=== PATIENT | female | born 1985 | race Caucasian/White ===

== ENCOUNTER 2017-09-30 07:08 | Emergency (ER) | payer MEDICAID, SELFPAY ==
[2017-09-30 07:08] VITALS: BP 130/72; PULSE 79; RESP 16; TEMP 36.4; O2SAT 99; BMI 25.6
--- NOTE | 2017-09-30 07:24 | RAD_ITS ---
STUDY: X-RAY - ABDOMEN/PELVIS REASON FOR EXAM: Female, 31 years old. Abdominal pain and cramping. TECHNIQUE: AP supine and upright views of the abdomen and pelvis. COMPARISON: None. FINDINGS: Normal visualized lung bases. There is a moderate amount of colonic fecal material. There is no demonstrated free abdominal air. The visualized liver, spleen and kidneys are grossly normal in size and morphology. Normal soft tissue structures. Normal visualized osseous structures. RAD/Abd Inc Decub and/or Erect IMPRESSION: Moderate amount of fecal material is seen in the colon. Electronically Signed: Ji Bloom MD at 8:09 EDT Tel [phone], Service support ,
--- NOTE | 2017-09-30 07:26 | ED.VISSUMM ---
- ER Visit Summary Date of Service: 09/30/17 Chief Complaint: Constipation History of Present Illness: The patient is a 31 F reports difficulty passing stool for the past 2 weeks. Patient states that she is urinating okay. She tried laxatives last week and yesterday without significant improvement. She is still passing occasional gas. She has had no nausea or vomiting. She denies fever but states she has had some chills. Prior surgical history is significant for hysterectomy and prior C-sections. Physical Examination: Vital signs are unremarkable Head neck examination is normal. Heart is regular rate and rhythm. Lung sounds are clear. Abdomen is soft with mild diffuse tenderness palpation. There is no guarding or rebound. Hypoactive bowel sounds are noted throughout. Extremity examination is unremarkable with distal palpable pulses. Test Results: Abdominal x-rays are obtained and reveal moderate fecal material without sign of obstruction. Emergency Department Course and Treatment: Patient be given GoLYTELY for home. She is to follow with her primary care physician. Treatment Plan: [] Disposition: Discharge Impression: Constipation This note was generated with [employer] dictation software. It may contain incorrect words, spelling, and punctuation that were not noted in review of the chart prior to signing ED Disposition - Plan for ED Patient: Chief Complaint: Constipation Referrals: Shady Sahni MD [Primary Care Provider] -
--- NOTE | 2017-09-30 08:20 | ED.DEP ---
ED Disposition - Plan for ED Patient: Disposition: Home or Assisted Living Chief Complaint: Constipation Instructions: ED Constipation Referrals: Shady Sahni MD [Primary Care Provider] - As Needed
[2017-09-30] MEDS: Electrolyte Solution/Peg's 4000 ML PO (08:46)
== END 2017-09-30 08:47 | disposition home or self-care (01) ==
PROVIDERS: Emergency Provider Emergency Medicine; Family Provider Family Medicine; PCP Family Medicine
DX: K59.00 Constipation, unspecified (principal); R68.83 Chills (without fever); F31.9 Bipolar disorder, unspecified; Z90.710 Acquired absence of both cervix and uterus; Z87.891 Personal history of nicotine dependence
CPT/HCPCS: 74019; 99282

== ENCOUNTER 2017-10-27 16:19 | Emergency (ER) | payer MEDICAID, SELFPAY ==
[2017-10-27 16:21] VITALS: BP 133/78; PULSE 81; RESP 17; TEMP 36.5; O2SAT 99; BMI 26.9
--- NOTE | 2017-10-27 16:38 | RAD_ITS ---
STUDY: X-RAY - RIGHT WRIST REASON FOR EXAM: Female, 31 years old. Punched a wall, wrist pain. TECHNIQUE: 3 view(s) of the wrist were obtained. COMPARISON: None. FINDINGS: Normal visualized distal radius and ulna. Normal radiocarpal articulation. Normal distal radioulnar articulation. Normal carpal bones. Normal carpal articulations. Normal carpometacarpal articulation of the thumb. Normal second through fifth carpometacarpal articulations. Normal visualized metacarpal bones. There is mild soft tissue swelling at the wrist. There is no demonstrated acute fracture. RAD/Wrist min 3 Views IMPRESSION: Mild soft tissue swelling. No acute fracture of the right wrist. Electronically Signed: Roe Brown MD at 17:01 EDT , Service support ,
--- NOTE | 2017-10-27 17:12 | ED.VISSUMM ---
- ER Visit Summary Date of Service: 10/27/17 Chief Complaint: Wrist injury History of Present Illness: The patient is a 31 F who states that on Tuesday she hit a wall using the back of her hand.. Today's post trauma day 3. She contains of continued pain in the lateral aspect of the right wrist. It is worse with movement. Physical Examination: Afebrile vital signs are stable Patient is tender palpation over the lateral aspect of the dorsum of the right wrist. Is no obvious deformity. Full range of motion. Neurovascular intact distally. Test Results: X-rays were negative for fracture Emergency Department Course and Treatment: She will use a Velcro wrist splint for comfort. Ibuprofen for pain. Follow-up 10-14 days if not improved. Impression: 1. Right wrist sprain This note was generated with [employer] dictation software. It may contain incorrect words, spelling, and punctuation that were not noted in review of the chart prior to signing ED Disposition - Plan for ED Patient: Disposition: Home or Assisted Living Chief Complaint: Upper Extremity Injury Instructions: ED Sprain Wrist Referrals: Shady Sahni MD [Primary Care Provider] - 10-14 Days if not better
== END 2017-10-27 17:41 | disposition home or self-care (01) ==
LOC: ED 17:17
PROVIDERS: Emergency Provider Emergency Medicine; Family Provider Family Medicine; PCP Family Medicine
DX: S63.501A Unspecified sprain of right wrist, initial encounter (principal); W22.01XA Walked into wall, initial encounter; Y93.9 Activity, unspecified; Y92.9 Unspecified place or not applicable; Z87.891 Personal history of nicotine dependence; Z90.710 Acquired absence of both cervix and uterus
CPT/HCPCS: 73110; 99283

== ENCOUNTER 2018-02-01 09:54 | Emergency (ER) | payer MEDICAID, SELFPAY ==
[2018-02-01 09:54] VITALS: BP 134/87; PULSE 67; RESP 15; TEMP 36.7; BMI 27.8
--- NOTE | 2018-02-01 10:14 | ED.VISSUMM ---
- ER Visit Summary Date of Service: 02/01/18 Chief Complaint: Headache History of Present Illness: The patient is a [address] Sahni. She reports that she has a headache that began this morning is gradually gotten worse. Last headache like this was approximately 2 months ago. Is a sharp pain that is frontal and over both temples. Is 10 out of 10 severity. It is worsened by light. She denies any relief with Midol or ibuprofen. She has been nauseated, but has not vomited. No fever. No recent injury. No numbness or weakness. Physical Examination: Vitals: Stable. Afebrile. General: Well-nourished and well-developed. Head: Normocephalic atraumatic. Neck: Supple, no lymphadenopathy. No JVD. Nontender. Cardiovascular: Regular rate and rhythm. No murmurs. Respiratory: No respiratory distress. Clear to auscultation bilaterally. Abdominal: Soft, nontender, nondistended, normal bowel sounds. No guarding, rebound, or peritoneal signs. Back: Nontender. Extremities: Nontender, no edema. Skin: Normal color, no rash. Neurologic: Alert and oriented ?3. Cranial nerves II through XII are intact. Normal strength and sensation. Psych: Normal affect. Emergency Department Course and Treatment: Patient had an IV placed. She was given Toradol, Benadryl, and Compazine IV. She has had significant improvement. Treatment Plan: Patient will be discharged instructions follow-up Dr. Sahni in 1-2 days if not improving. Return to the emergency department for any worsening symptoms. Disposition: To home in improved and stable condition. Impression: 1. Migraine headache. This note was generated with [employer] dictation software. It may contain incorrect words, spelling, and punctuation that were not noted in review of the chart prior to signing ED Disposition - Plan for ED Patient: Chief Complaint: Headache Instructions: ED Headache Migraine Referrals: Shady Sahni MD [Primary Care Provider] - 1-2 Days if not improving
[2018-02-01] MEDS: Ketorolac 30 MG/ML Syringe IV (10:24)
[2018-02-01] MEDS: 0.9% Normal Saline 1,000 ML 999 ML IV (10:24)
[2018-02-01] MEDS: DiphenhydrAMINE 50 MG/ML Syringe IV (10:24)
[2018-02-01] MEDS: proCHLORPERazine 10 MG/2 ML Vial IV (10:24)
[2018-02-01 12:02] VITALS: BP 125/70; PULSE 75; RESP 14; O2SAT 99
[2018-02-01 12:13] VITALS: BP 122/74; PULSE 70; RESP 14; TEMP 36.6
== END 2018-02-01 12:15 | disposition home or self-care (01) ==
PROVIDERS: Emergency Provider Emergency Medicine; Family Provider Family Medicine; PCP Family Medicine
DX: G43.909 Migraine, unspecified, not intractable, without status migrainosus (principal)
CPT/HCPCS: 96361; 96374; 96375; 99283; J7030; A4216

== ENCOUNTER 2018-03-25 06:32 | Emergency (ER) | payer MEDICAID, SELFPAY ==
[2018-03-25 06:33] VITALS: BP 133/88; PULSE 70; RESP 24; TEMP 36.5; O2SAT 98; BMI 29.0
[2018-03-25 06:53] LABS: Absolute Lymphocyte Count 2.41 X10^3/ul (0.83-4.51); Absolute Neutrophil Count 2.8 X10^3/uL (2.0-7.7); Basophil# 0.03 X10^3/uL; Basophil% 0.5 % (0-1); Eosinophil# 0.25 X10^3/uL; Eosinophils% 4.2 % (0-5); Hematocrit 41.8 % (37-47); Hemoglobin 13.8 g/dl (12.0-15.0); Lymphocyte # 2.41 X10^3/ul (4.0); Lymphocyte % 40.2 % (19-41); Mean Corpuscular Hgb 32.1 pg (27.0-32.0); Mean Corpuscular Volume 97.2 fL (81-99); Monocyte# 0.56 X10^3/uL; Monocyte% 9.3 % (0-10); Neutrophil # 2.75 X10^3/uL (2.7-7.7); Neutrophil % 45.8 % (47-70); Platelet Count 258 K/mm3 (150-450); RBC Distribution Width SD 46.2 fl (35.1-43.9)
[2018-03-25 06:54] LABS: POSITIVE COUNT NO; POSITIVE DIFFERENTIAL NO; POSITIVE MORPHOLOGY NO
[2018-03-25 07:02] LABS: Anion Gap 7 (5-15); BUN 14 mg/dL (7-18); BUN/Creat Ratio 18.2 RATIO (10-20); Calcium,Total 8.9 mg/dL (8.5-10.1); Chloride 110 mmol/L (98-107); Creatinine, Serum 0.77 mg/dL (0.55-1.02); EST Glomerular Filtration Rate 92 mL/min (>60); Est Glom Filt Rate - Afr Amer 112 mL/min (>60); Estimated Creatinine Clearance 86.77 ml/min; Glucose 95 mg/dL (74-106); Potassium 4.3 mmol/L (3.5-5.1); Sodium Level 143 mmol/L (136-145)
[2018-03-25 07:13] LABS: Pregnancy, Serum, hCG Quali. NEGATIVE Negative (0-9 Nonpreg)
[2018-03-25] MEDS: morphine 8 MG/ML Syringe IV (07:35)
[2018-03-25] MEDS: Ondansetron 4 MG/2 ML Vial IV (07:35)
[2018-03-25] MEDS: 0.9% Normal Saline 1,000 ML 1000 ML IV (07:35)
[2018-03-25 07:40] LABS: Bacteria 0 SEEN /hpf (None Seen); Color, Urine Yellow (Yellow); Glucose, Dipstick Normal (Normal); Ketone-Dipstick Negative (Negative); Leukocyte Esterase-Dipstick Negative /ul (Negative); Mucous, Urine 0 SEEN /hpf (<or=2+); Nitrite-Dipstick Negative (Negative); Occult Blood-Urine Negative /ul (Negative); Protein-Dipstick Negative (Negative); Red Blood Cells-Urine 0 SEEN /hpf (0-5); Urine Bilirubin Dipstick Negative (Negative); Urine Clarity Clear (Clear); Urine Urobilinogen Normal (Normal); Urine pH 6.5 (5.0 - 8.0); White Blood Cells 0 SEEN /hpf (0-5)
[2018-03-25 07:41] LABS: Squamous Epithelial Cells - UA 0-5 SEEN /hpf (5-10)
--- NOTE | 2018-03-25 07:46 | ED.VISSUMM ---
- ER Visit Summary Date of Service: 03/25/18 Chief Complaint: [] Sudden onset of right flank pain about an hour ago History of Present Illness: The patient is a 32 F [] history of partial hysterectomy she states she cannot get , indicates she went to bed feeling fine and suddenly began having pain to the right flank that radiated from her back to her lower abdomen on the right. She has had nausea no vomiting normal bowel bladder habits no fever no cough no trauma she has never had this before no history of kidney stones or other elements she points to her right flank is area of pain Physical Examination: [] She is complaining of pain to the right flank head neck chest unremarkable abdomen soft nontender is a vague pain to the right flank rebound guarding or megaly upper lower extremities unremarkable the rest exams unremarkable Test Results: [] Emergency Department Course and Treatment: [] The labs are obtained CT flank pain management Patient studies are generally unremarkable see those reports, the CT showed nothing acute normal appendix no signs of kidney stone what appeared to be a right ovarian cyst, ultrasound recommended, the ultrasound showed the same see those reports the cyst appeared complex Neck eval with the patient she is feeling much better the pain is markedly improved almost resolved she wants to go home I explained she is follow-up with her outpatient physical therapist next few days return for change in symptoms and she will do so, she will start on Naprosyn and Jackson as rescue medicine, and again she is much improved and she agrees with this plan Treatment Plan: [] Disposition: [] Home stable Impression: [] Right flank pain etiology unclear, right ovarian cyst This note was generated with [employer] dictation software. It may contain incorrect words, spelling, and punctuation that were not noted in review of the chart prior to signing ED Disposition - Plan for ED Patient: Chief Complaint: Abd Pain Referrals: Shady Sahni MD [Primary Care Provider] -
[2018-03-25 08:35] VITALS: BP 108/76; PULSE 54; RESP 16; O2SAT 98
--- NOTE | 2018-03-25 10:47 | ED.DEP ---
ED Disposition - Plan for ED Patient: Chief Complaint: Abd Pain Instructions: ED Abdominal Pain Unkn Cause, ED Pelvic Pain UKO Prescriptions: Hydrocodone Bitart/Apap 5-325 [[place] 5MG-325MG] 1 tab PO Q4H PRN PRN 2 Days #10 tab PRN Reason: Pain Naproxen [Naprosyn] 500 mg PO BID PRN #20 tab Referrals: Shady Sahni MD [Primary Care Provider] -
[2018-03-25 10:58] VITALS: BP 138/74; PULSE 84; RESP 16; O2SAT 98
== END 2018-03-25 10:59 | disposition home or self-care (01) ==
PROVIDERS: Emergency Provider Emergency Medicine; Family Provider Family Medicine; PCP Family Medicine
DX: R10.9 Unspecified abdominal pain (principal); N83.201 Unspecified ovarian cyst, right side; Z90.711 Acquired absence of uterus with remaining cervical stump
CPT/HCPCS: 74176; 76830; 80048; 81001; 84703; 85025; 96361; 96374; 96375; 99284; J7030; A4216; J2405

== ENCOUNTER 2018-03-30 12:09 | Emergency (ER) | payer MEDICAID, SELFPAY ==
[2018-03-30 12:09] VITALS: BP 124/67; PULSE 63; RESP 18; TEMP 36.6; O2SAT 97; BMI 29.5
--- NOTE | 2018-03-30 12:24 | US_ITS ---
STUDY: ULTRASOUND OF THE FEMALE PELVIS - COMPLETE REASON FOR EXAM: Female, 32 years old. Pelvic pain, history of partial hysterectomy LMP: Unknown. TECHNIQUE: Transvaginal TECHNICAL QUALITY: Adequate. COMPARISON: 03/25/2018 FINDINGS: The uterus was previously removed. Previously described right ovarian cyst has resolved. The right ovary is visualized. The right ovary measures 3.3 x 1.8 x 1.7 cm. There is no right ovarian cyst or ovarian mass. There is no visualized right adnexal mass or complex lesion. There is normal arterial and normal venous vascularity. The left ovary is visualized. The left ovary measures 2.7 x 2.0 x 1.2 cm. There is no left ovarian cyst or ovarian mass. There is no visualized left adnexal mass or complex lesion. There is normal arterial and normal venous vascularity. There is no fluid in the cul-de-sac. The bladder sonographically normal US/Transvaginal Non- IMPRESSION: No suspicious sonographic findings, previous uterine removal. Electronically Signed: Roe Milton MD at 14:15 EDT , Service support ,
[2018-03-30 12:41] LABS: Bacteria 0 SEEN /hpf (None Seen); Mucous, Urine 0 SEEN /hpf (<or=2+); Red Blood Cells-Urine 0 SEEN /hpf (0-5); White Blood Cells 0 SEEN /hpf (0-5)
[2018-03-30] MEDS: Morphine 4 MG/ML Syringe IV (12:49)
[2018-03-30] MEDS: Ondansetron 4 MG/2 ML Vial IV (12:49)
[2018-03-30 12:55] LABS: Absolute Lymphocyte Count 1.73 X10^3/ul (0.83-4.51); Absolute Neutrophil Count 3.4 X10^3/uL (2.0-7.7); Basophil# 0.03 X10^3/uL; Basophil% 0.5 % (0-1); Eosinophil# 0.16 X10^3/uL; Eosinophils% 2.8 % (0-5); Hematocrit 38.7 % (37-47); Hemoglobin 12.9 g/dl (12.0-15.0); Lymphocyte # 1.73 X10^3/ul (4.0); Lymphocyte % 29.9 % (19-41); Mean Corp Hgb Conc 33.3 g/gl (32-36); Mean Corpuscular Hgb 32.6 pg (27.0-32.0); Mean Corpuscular Volume 97.7 fL (81-99); Monocyte# 0.51 X10^3/uL; Monocyte% 8.8 % (0-10); Neutrophil # 3.36 X10^3/uL (2.7-7.7); POSITIVE COUNT NO; POSITIVE DIFFERENTIAL NO; POSITIVE MORPHOLOGY NO; Platelet Count 251 K/mm3 (150-450); RBC Distribution Width CV 12.7 % (11.6-14.6); RBC Distribution Width SD 45.6 fl (35.1-43.9); Red Blood Count 3.96 M/mm3 (4.2-5.4); White Blood Count 5.8 K/mm3 (4.4-11.0)
[2018-03-30 13:03] LABS: Anion Gap 8 (5-15); BUN 11 mg/dL (7-18); BUN/Creat Ratio 13.8 RATIO (10-20); Calcium,Total 8.4 mg/dL (8.5-10.1); Chloride 108 mmol/L (98-107); EST Glomerular Filtration Rate 88 mL/min (>60); Est Glom Filt Rate - Afr Amer 107 mL/min (>60); Estimated Creatinine Clearance 79.85 ml/min; Glucose 89 mg/dL (74-106); Potassium 3.8 mmol/L (3.5-5.1); Sodium Level 141 mmol/L (136-145)
[2018-03-30 13:04] LABS: Color, Urine Yellow (Yellow); Glucose, Dipstick Normal (Normal); Ketone-Dipstick Negative (Negative); Leukocyte Esterase-Dipstick Negative /ul (Negative); Nitrite-Dipstick Negative (Negative); Occult Blood-Urine Negative /ul (Negative); Protein-Dipstick Negative (Negative); Urine Bilirubin Dipstick Negative (Negative); Urine Clarity Clear (Clear); Urine Urobilinogen Normal (Normal)
[2018-03-30 13:13] LABS: Squamous Epithelial Cells - UA 0-5 SEEN /hpf (5-10)
--- NOTE | 2018-03-30 14:46 | ED.VISSUMM ---
- ER Visit Summary Date of Service: 03/30/18 Chief Complaint: Right-sided abdominal pain History of Present Illness: The patient is a 32 F with right-sided abdominal pain for the past 5 days. Patient was seen in the ER on the eighth and was diagnosed with a right ovarian complex cyst. She is still having right lower quadrant pain that significant a worsened this morning. She states she is urinating frequently as well. She has not had fever or chills. Last dose of naproxen was this morning. Last dose of Morris was last night. She is an appointment to see her LIVESTOCK SPECULATOR next week. Physical Examination: Vital signs unremarkable. Patient's lying in bed no acute distress. Heart is regular rate and rhythm. Lung sounds are clear. Abdomen is soft with tenderness in the right lower quadrant. There is no guarding or rebound. Active bowel sounds noted throughout. Test Results: CBC, chemistry studies, urinalysis all normal. Pelvic ultrasound is repeated today. There is normal pelvis findings. Evidence of previous uterine removal noted. Cyst noted to the right ovary from the eighth is no longer present. Emergency Department Course and Treatment: Patient was given morphine, Zofran, and IV fluids. On repeat evaluation she is resting comfortably. I advised her that I believe her cyst is ruptured and that likely caused her increased pain. She will be given a perception for 6 tabs of Morris only. She is to follow-up with her LIVESTOCK SPECULATOR next week. Treatment Plan: [] Disposition: Discharge Impression: Abdominal pain secondary to ruptured ovarian cyst This note was generated with [employer] dictation software. It may contain incorrect words, spelling, and punctuation that were not noted in review of the chart prior to signing ED Disposition - Plan for ED Patient: Chief Complaint: Abd Pain Referrals: Shady Sahni MD [Primary Care Provider] -
--- NOTE | 2018-03-30 14:49 | ED.DCSUM_ITS ---
- ER Visit Summary Date of Service: 03/30/18 Chief Complaint: Right-sided abdominal pain History of Present Illness: The patient is a 32 F with right-sided abdominal pain for the past 5 days. Patient was seen in the ER on the eighth and was diagnosed with a right ovarian complex cyst. She is still having right lower quadrant pain that significant a worsened this morning. She states she is urinating frequently as well. She has not had fever or chills. Last dose of naproxen was this morning. Last dose of Cary was last night. She is an appointment to see her FILING CLERK next week. Physical Examination: Vital signs unremarkable. Patient's lying in bed no acute distress. Heart is regular rate and rhythm. Lung sounds are clear. Abdomen is soft with tenderness in the right lower quadrant. There is no guarding or rebound. Active bowel sounds noted throughout. Test Results: CBC, chemistry studies, urinalysis all normal. Pelvic ultrasound is repeated today. There is normal pelvis findings. Evidence of previous uterine removal noted. Cyst noted to the right ovary from the eighth is no longer present. Emergency Department Course and Treatment: Patient was given morphine, Zofran, and IV fluids. On repeat evaluation she is resting comfortably. I advised her that I believe her cyst is ruptured and that likely caused her increased pain. She will be given a perception for 6 tabs of Cary only. She is to follow-up with her FILING CLERK next week. Treatment Plan: [] Disposition: Discharge Impression: Abdominal pain secondary to ruptured ovarian cyst This note was generated with [employer] dictation software. It may contain incorrect words, spelling, and punctuation that were not noted in review of the chart prior to signing ED Disposition - Plan for ED Patient: Chief Complaint: Abd Pain Referrals: Shady Sahni MD [Primary Care Provider] -
--- NOTE | 2018-03-30 14:49 | ED.DEP ---
ED Disposition - Plan for ED Patient: Disposition: Home or Assisted Living Chief Complaint: Abd Pain Instructions: ED Cyst Ovarian Prescriptions: Hydrocodone Bitart/Apap 5-325 [[place] 5MG-325MG] 1 tablet PO Q6H PRN PRN 3 Days #6 tablet PRN Reason: Pain Referrals: Shady Sahni MD [Primary Care Provider] - Additional Instructions: Follow-up with SUPERVISOR [employer] next week as scheduled.
--- NOTE | 2018-03-30 14:50 | DCINST.ED_ITS ---
ED Disposition - Plan for ED Patient: Disposition: Home or Assisted Living Chief Complaint: Abd Pain Instructions: ED Cyst Ovarian Prescriptions: Hydrocodone Bitart/Apap 5-325 [[place] 5MG-325MG] 1 tablet PO Q6H PRN PRN 3 Days # 6 tablet PRN Reason: Pain Referrals: Shady Sahni MD [Primary Care Provider] - Additional Instructions: Follow-up with ADMINISTRATIVE COORDINATOR next week as scheduled.
[2018-03-30 14:56] VITALS: BP 113/59; PULSE 71; RESP 15; O2SAT 98
== END 2018-03-30 14:58 | disposition home or self-care (01) ==
PROVIDERS: Emergency Provider Emergency Medicine; Family Provider Family Medicine; PCP Family Medicine
DX: N83.291 Other ovarian cyst, right side (principal); R10.31 Right lower quadrant pain; F31.9 Bipolar disorder, unspecified; Z87.891 Personal history of nicotine dependence
CPT/HCPCS: 76830; 80048; 81001; 85025; 96374; 96375; 99283; A4216; J2405

== ENCOUNTER 2018-06-29 09:04 | Emergency (ER) | payer MEDICAID, SELFPAY ==
[2018-06-29 09:07] VITALS: BP 125/66; PULSE 79; RESP 14; TEMP 37.3; O2SAT 99; BMI 30.2
--- NOTE | 2018-06-29 09:39 | ED.VISSUMM ---
- ER Visit Summary Date of Service: 06/29/18 Chief Complaint: Ear pain and sore throat History of Present Illness: The patient is a 32 F who presents with bilateral ear pain and sore throat that has been getting worse over the past week. Patient states she has pressure in her ears. She admits to some nasal congestion and a headache. Patient also admits to nonproductive cough. Patient admits to subjective fevers and chills. Patient also admits to some pain in her chest with coughing. Patient denies any neck or back pain. Physical Examination: Vital signs are stable. Patient is afebrile. Patient is in no acute distress. Pupils are equal, round, reactive to light bilaterally. Extraocular muscles are intact. Tympanic membranes show effusions bilaterally but there is no erythema. Oral mucosa is pink and moist. Oropharynx shows some mild post oral pharyngeal erythema. There are no exudates noted. Neck is supple. Trachea is midline. There is anterior cervical lymphadenopathy noted. There is no tenderness. Heart was regular rate and rhythm. Lungs are clear and equal bilaterally. The remaining physical exam is within normal limits. Emergency Department Course and Treatment: Patient was given a note for work for today. Patient was given a prescription for Claritin-D. Patient was instructed to follow-up with her primary care physician in 5-7 days. Patient understood and was agreeable with the plan. All questions were answered. Disposition: Discharged home Impression: Viral upper respiratory infection This note was generated with [employer] dictation software. It may contain incorrect words, spelling, and punctuation that were not noted in review of the chart prior to signing ED Disposition - Plan for ED Patient: Disposition: Home or Assisted Living Chief Complaint: Ear Problem Diagnosis: Upper respiratory infection, viral Instructions: ED Pharyngitis Viral Prescriptions: Loratadine/Pseudo 240/10 [Claritin-D 24 Hr] 1 tab PO DAILY #10 tab Referrals: Shady Sahni MD [Primary Care Provider] -
--- OUTSIDE RECORDS SUMMARY | 2018-08-15 03:01 | XMS RPT_ITS ---
:1985 Author Organization OHIP Care Team Providers Name Role Phone SHADY SAHNI Attending Unavailable JACQUELINE, SHADY Hurst Referring Unavailable JACQUELINE, SHADY J Referring Unavailable JACQUELINE, SHADY J Referring Unavailable JACQUELINE, SHADY J Referring Unavailable JACQUELINE, SHADY J Referring Unavailable JACQUELINE, SHADY J Referring Unavailable ANGELI BELTRAN Attending Unavailable JACQUELINE, SHADY Hurst Attending Unavailable NIMA SHERWOOD Attending Unavailable ANGELI BELTRAN Referring Unavailable EBONY MAN (TELETYPESETTER OPERATOR) Attending Unavailable JOYCE BOOKER (TELETYPESETTER OPERATOR) Attending Unavailable [place], Shady Primary Care Unavailable SchwShahbaz beck Attending Unavailable [place], Shady Primary Care Unavailable SchwShahbaz ebck Attending Unavailable [place], Shady Primary Care Unavailable Lynsey Hernandez Attending Unavailable [place], Shady Primary Care Unavailable David Seaman Attending Unavailable Jacqueline, Shady Primary Care Unavailable Juan Pablo Tee Attending Unavailable Jacqueline, Shady Primary Care Unavailable Annia Tariq Attending Unavailable [place], Shady Primary Care Unavailable Judah Lowe Attending Unavailable Jacqueline, Shady Primary Care Unavailable Lynsey Hernandez Attending Unavailable PROBLEMS PROBLEMS DATE TYPE CONDITION / CODE ATTENDING STATUS SOURCE 03/30/2018 Unknown N83.209 - Lynsey Hernandez Active [place] Unspecified [facility] ovarian cyst, Hospital unspecified side Repository / N83.209(ICD-10) 03/25/2018 Unknown R52 - Pain, Jwayyed, Active [place] unspecified / Kishorehabekatalina [facility] R52(ICD-10) Hospital Repository 01/11/2018 Active Encounter for NA Active [facility] screening for Main Index other viral Repository diseases / Z11.59(ICD-10) PROCEDURES PROCEDURES No Procedure Records FoundRESULTS RESULTS EMERGENCY DEPARTMENT Observed: 08/06/2018 Status: F Source: [place] SUMMARY 5:48 PM [facility] REPOSITORY [facility] Medical Records Department [address] [place] [address] Emergency Department Summary 08/06/18 1632 MR#: [id number] Acct: [id number] Name: RUBY COTTER TOREY Rep #: [id number] : 1985 32 From: Annia Tariq MD PCP: Shady Sahni MD Status: REG ER - ER Visit Summary Date of Service: 08/06/18 Chief Complaint: Headache History of Present Illness: The patient is a 32 F presenting with headache. This started gradually earlier this morning. She tried Advil at home with no relief. She complains of nausea and vomiting. She has light sensitivity. She denies trauma. She has a history of migraines and states this feels similar. She states she typically has one migraine per week. She denies other complaints. Physical Examination: Vitals are stable. Patient is afebrile. Alert no acute distress. HEENT exam is unremarkable. Neck is supple. No meningismus Lungs are clear and equal bilaterally. Heart is regular rate and rhythm. Extremities are unremarkable. Skin is warm and dry. No rash No focal neurologic deficit. Remainder of exam is unremarkable. Emergency Department Course and Treatment: Patient was given Reglan, Benadryl IV. On reevaluation, patient is feeling improved. She is requesting to go home. She will follow-up with her primary care physician. She is advised to return to ED if worsening complaints. Disposition: Discharge home Impression: Headache This note was generated with [employer] dictation software. It may contain incorrect words, spelling, and punctuation that were not noted in review of the chart prior to signing ED Disposition - Plan for ED Patient: Chief Complaint: Headache Instructions: ED Headache Migraine Referrals: Shady Sahni MD [Primary Care Provider] - What to do if you have Problems For any increased pain, shortness of breath, bleeding, nausea or vomiting, chest pain, or any unexpected problems, contact your Primary Care Provider. Call [facility] ([phone]) or report to the closest Emergency Room. Call 911 if necessary. 08/06/18 1748 <Electronically signed by Annia Tariq MD> Date Annia Tariq MD Cosigner Signature (If Indicated): Date CC: Shady Sahni MD DISCHARGE INSTRUCTION Observed: 08/06/2018 Status: F Source: [place] 5:39 PM [facility] REPOSITORY [facility] Medical Records Department [address] [place] [address] Discharge Instruction 08/06/181738 MR#: [id number] Acct: [id number] Name: RUBY COTTER TOREY Rep #: [id number] : 1985 32 From: Annia Tariq MD PCP: Shady Sahni MD Status: [facility] ER ED Disposition - Plan for ED Patient: Chief Complaint: Headache Instructions: ED Headache Migraine Referrals: Shady Sahni MD [Primary Care Provider] - What to do if you have Problems For any increased pain, shortness of breath, bleeding, nausea or vomiting, chest pain, or any unexpected problems, contact your Primary Care Provider. Call [facility] ([phone]) or report to the closest Emergency Room. Call 911 if necessary. 08/06/181738 <Electronically signed by Annia Tariq MD> Date Annia Tariq MD Cosigner Signature (If Indicated): Date CC: Shady Sahni MD EMERGENCY DEPARTMENT Observed: 07/26/2018 Status: F Source: [place] SUMMARY 1:54 AM [facility] REPOSITORY [facility] Medical Records Department [address] [place] [address] Emergency Department Summary 07/25/189 MR#: [id number] Acct: [id number] Name: RUBY COTTER TOREY Rep #: [id number] : 1985 32 From: Shahbaz Albert DO PCP: Shady Sahni MD Status: [facility] ER - ER Visit Summary Date of Service: 07/25/18 Chief Complaint: Back pain History of Present Illness: The patient is a 32 F who presents with midthoracic back pain that is been constant for the past 2 weeks. Patient describes as a pressure. Patient states the pain is worse with sitting standing and flexion of her neck. Patient states nothing seems to help. Patient denies any paresthesias or weakness. Patient denies any radiation of the pain. Patient denies any bowel or bladder changes. Patient denies any saddle anesthesia. Patient denies any trauma or injury. Physical Examination: Vital signs are stable. Patient is afebrile. Patient is in no acute distress. Musculoskeletal exam reveals tenderness and mild spasm over the mid thoracic spine and paraspinal muscles. There is no bony crepitance or step- off. Range of motion was limited in all motions of the thoracic spine secondary to pain. Strength is 5/5 bilaterally upper and lower extremities. There are no sensory deficits noted. The remaining physical exam is within normal limits. Test Results: Due to the midline tenderness, x-rays of the thoracic spine were obtained. There are degenerative changes but no acute fracture. Emergency Department Course and Treatment: Patient was given injections of Toradol and Norflex here. Patient was instructed use ice to the area. Patient was given a prescription for Naprosyn and Flexeril. Patient was instructed to follow-up with her primary care physician in 5-7 days. Patient understood and was agreeable with the plan. All questions were answered. Disposition: Discharge home Impression: Thoracic strain This note was generated with [employer] dictation software. It may contain incorrect words, spelling, and punctuation that were not noted in review of the chart prior to signing ED Disposition - Plan for ED Patient: Disposition: Home or Assisted Living Chief Complaint: Back Diagnosis: Thoracic myofascial strain Instructions: ED Neck Back Pain General Prescriptions: Cyclobenzaprine [Flexeril] 10 mg PO QHS PRN PRN #10 tab PRN Reason: Muscle Spasm Naproxen [Naprosyn] 500 mg PO BID PRN #20 tab Referrals: Shady Sahni MD [Primary Care Provider] - What to do if you have Problems For any increased pain, shortness of breath, bleeding, nausea or vomiting, chest pain, or any unexpected problems, contact your Primary Care Provider. Call [facility] ([phone]) or report to the closest Emergency Room. Call 911 if necessary. 07/26/18 0154 <Electronically signed by Shahbaz Albert DO> Date Shahbaz Albert DO Cosigner Signature (If Indicated): Date CC: Shady Sahni MD THORACIC SPINE 3 Observed: 07/25/2018 Status: F Source: [place] VIEWS 6:47 PM [facility] REPOSITORY [facility] Imaging Services [address] [place] [address] Thoracic Spine 3 Views MR#: [id number] Acct: [id number] Name: RUBY COTTER Rep #: [id number] : 1985 F 32 From: Gabrilela Blancas MD PCP: Shady Sahni MD Status: REG ER Study: Thoracic Spine 3 Views Date of Exam: 07/25/18 Exam# [id number] Ordering Dr: Shahbaz Albert DO STUDY: X-RAY - THORACIC SPINE REASON FOR EXAM: Female, 32 years old. Pain, TECHNIQUE: 3 view(s) of the thoracic spine were obtained. COMPARISON: And lateral film of the chest October 29, 2015 FINDINGS: There is mild kyphosis. There is no substantial scoliosis. There is persistent multilevel spondylosis. At T9-T10 there is a persistent robust anterior osteophyte. There is no apparent acute loss of height or alignment. There is also degenerative change in the visualized cervical spine C4-C5. Normal disc space heights. The soft tissue structures are unremarkable. RAD/Thoracic Spine 3 Views IMPRESSION: Degenerative change of the thoracic spine. Electronically Signed: Gabriella Blancas MD at 19:50 EST Tel , Service support , CC: Shahbaz Albert DO; Shady Sahni MD Jacquard Plate Maker: Signed GROUP A STREP BY Collected: 07/04/2018 Status: F Source: [place] PCR 11:00 AM [facility] REPOSITORY TYPE CODE TESTS RESULT OUT OF REFERENCE UNITS RANGE LAB GASSRC Throat Swab GAS Specimen Source LAB PCRGAS Negative for Group A Strep Group A PCR Streptococcus by PCR. Result Comment: This test was developed and its performance characteristics determined by [facility] ([facility] It has not been cleared or approved by the FDA. -[facility] is regulated under CLIA as qualified to perform high-complexity testing. This test is used for clinical purposes. It should not be regarded as inv estigational or for research. Performed By: #### GASPCR #### [facility] [address] [address] PROGRESS Observed: 07/04/2018 Status: COMPLETED Source: [place] 10:37 AM [facility] REPOSITORY HNO ID: [id number] Author: Chasidy Montoya) [place] Service: (none) Author Type: Nurse Practitioner Type: Progress Notes Filed: 07/04/2018 11:00 AM Note Text: Subjective HPI Ruby Cotter is a 32 year old female who presents with cough, ear pain and sore throat for one week. She was seen here 06/28/18 and then went to the ER the next day. The ER gave her Claritin D to take. She rates her sore throat pain an 8/10, she is losing her voice. Right ear pain is a 10/10. She has taken Aleve at home for pain. Sick contacts include her children. Review of Systems Constitutional: Negative. Negative for fever. HENT: Positive for congestion (runny nose), ear pain and sore throat. Respiratory: Positive for cough and sputum production. Negative for shortness of breath. Cardiovascular: Positive for chest pain (with coughing). Gastrointestinal: Negative. Negative for diarrhea, nausea and vomiting. BP 124/68 Pulse 72 Temp 37.1 ?C (98.7 ?F) (Tympanic) Resp 16 Wt 77.6 kg (171 lb) LMP 02/21/2014 SpO2 98% BMI 30.29 kg/m? PAST MEDICAL HISTORY Diagnosis Date - Anxiety - Depression - Post traumatic stress disorder was seeing psych PAST SURGICAL HISTORY Procedure Laterality Date - DELIVERY ONLY 2005 , low transverse - DELIVERY ONLY 2008 , low transverse - HYSTERECTOMY 2013 with removal of tubes, ovaries left in place, for menorrhagia - PCHG TUBAL W/ 2008 ALLERGIES Patient has no known allergies. MEDICATIONS escitalopram oxalate (LEXAPRO) 20 mg tablet Take 1 tablet by mouth once daily. fluticasone (FLONASE) 50 mcg/actuation nasal spray Use 2 Sprays in each nostril once daily. Rinse mouth after use. Xraqvzybivilm-Stasgxkxnfqea-VW (TYLENOL COLD HEAD CONGEST SEVR) 5-325-200 mg tab Take 1 Dose by mouth as directed. FAMILY HISTORY Problem Relation Age of Onset - None Mother - other (brain tumor) Father - Coronary Artery Disease Paternal Uncle Social History Substance Use Topics - Smoking status: Current Some Day Smoker Packs/day: 1.00 Years: 10.00 - Smokeless tobacco: Never Used Comment: smoking vaps - Alcohol use No Objective Physical Exam Constitutional: She is well-developed, well-nourished, and in no distress. HENT: Head: Normocephalic. Right Ear: Ear canal normal. There is tenderness. Tympanic membrane is injected. Left Ear: Tympanic membrane, external ear and ear canal normal. Nose: Nose normal. No rhinorrhea. Mouth/Throat: Oropharynx is clear and moist and mucous membranes are normal. No posterior oropharyngeal edema or posterior oropharyngeal erythema. Eyes: Conjunctivae are normal. Right eye exhibits no discharge. Left eye exhibits no discharge. Neck: Neck supple. Cardiovascular: Normal rate and regular rhythm. Pulmonary/Chest: Effort normal and breath sounds normal. No respiratory distress. She has no wheezes. She has no rales. Lymphadenopathy: She has cervical adenopathy (right). Neurological: She is alert. Skin: Skin is warm and dry. No rash noted. Nursing note and vitals reviewed. ASSESSMENT/PLAN: 1. Sore throat - ICD9: 462, ICD10: J02.9 (primary diagnosis) - suspect viral - Rapid Strep negative in the office today and Throat culture pending - Discussed supportive care treatment with fluids, rest and analgesia. - The patient may also use warm salt water gargles, throat lozenges and/or OTC throat spray as needed. - Call back if drooling, increased temperature, symptoms of dehydration and/or still sick in one week - GROUP A STREPTOCOCCUS BY PCR - RAPID STREP TEST B/O 2. Other acute nonsuppurative otitis media of right ear, recurrence not specified - ICD9: 381.00, ICD10: H65.191 - Will begin treatment with Amoxicillin for 10 days - Supportive care with plenty of fluids, rest, and analgesia prn. - AMOXICILLIN 875 MG TABLET - Follow-up with your PCP in 3-5 days if symptoms have not improved or sooner if symptoms worsen - Discussed red flags and need for immediate medical evaluation if any occur. - Discussed supportive care treatment with fluids, rest and analgesia. - Discussed expected course of illness Chasidy Luther APRN.CNP CNOV Observed: 07/04/2018 Status: COMPLETED Source: [place] 10:15 AM [facility] REPOSITORY Office Visit (WSTR) CYNDEERUBY ([id number]) 1985 F Date Time Provider Department 07/04/18 10:15 AM CHASIDY LUTHER ([facility]) [facility] During your visit today, we recorded the following information about you: Temperature Pulse Respiration Blood pressure 98.7 degrees 72/minute 16/minute 124/68 Weight 77.6 kg Chasidy Luther APRN.CNP 07/04/2018 11:00 AM Signed Subjective HPI Ruby Penn Cyndee is a 32 year old female who presents with cough, ear pain and sore throat for one week. She was seen here 06/28/18 and then went to the ER the next day. The ER gave her Claritin D to take. She rates her sore throat pain an 8/10, she is losing her voice. Right ear pain is a 10/10. She has taken Aleve at home for pain. Sick contacts include her children. Review of Systems Constitutional: Negative. Negative for fever. HENT: Positive for congestion (runny nose), ear pain and sore throat. Respiratory: Positive for cough and sputum production. Negative for shortness of breath. Cardiovascular: Positive for chest pain (with coughing). Gastrointestinal: Negative. Negative for diarrhea, nausea and vomiting. BP 124/68 Pulse 72 Temp 37.1 ?C (98.7 ?F) (Tympanic) Resp 16 Wt 77.6 kg (171 lb) LMP 02/21/2014 SpO2 98% BMI 30.29 kg/m? PAST MEDICAL HISTORY Diagnosis Date - Anxiety - Depression - Post traumatic stress disorder was seeing psych PAST SURGICAL HISTORY Procedure Laterality Date - DELIVERY ONLY 2005 , low transverse - DELIVERY ONLY 2009 , low transverse - HYSTERECTOMY 2013 with removal of tubes, ovaries left in place, for menorrhagia - PCHG TUBAL W/ 2008 ALLERGIES Patient has no known allergies. MEDICATIONS escitalopram oxalate (LEXAPRO) 20 mg tablet Take 1 tablet by mouth once daily. fluticasone (FLONASE) 50 mcg/actuation nasal spray Use 2 Sprays in each nostril once daily. Rinse mouth after use. Dgywpyhmibfuw-Hystapqmogeui-ZN (TYLENOL COLD HEAD CONGEST SEVR) 5-325-200 mg tab Take 1 Dose by mouth as directed. FAMILY HISTORY Problem Relation Age of Onset - None Mother - other (brain tumor) Father - Coronary Artery Disease Paternal Uncle Social History Substance Use Topics - Smoking status: Current Some Day Smoker Packs/day: 1.00 Years: 10.00 - Smokeless tobacco: Never Used Comment: smoking vaps - Alcohol use No Objective Physical Exam Constitutional: She is well-developed, well-nourished, and in no distress. HENT: Head: Normocephalic. Right Ear: Ear canal normal. There is tenderness. Tympanic membrane is injected. Left Ear: Tympanic membrane, external ear and ear canal normal. Nose: Nose normal. No rhinorrhea. Mouth/Throat: Oropharynx is clear and moist and mucous membranes are normal. No posterior oropharyngeal edema or posterior oropharyngeal erythema. Eyes: Conjunctivae are normal. Right eye exhibits no discharge. Left eye exhibits no discharge. Neck: Neck supple. Cardiovascular: Normal rate and regular rhythm. Pulmonary/Chest: Effort normal and breath sounds normal. No respiratory distress. She has no wheezes. She has no rales. Lymphadenopathy: She has cervical adenopathy (right). Neurological: She is alert. Skin: Skin is warm and dry. No rash noted. Nursing note and vitals reviewed. ASSESSMENT/PLAN: 1. Sore throat - ICD9: 462, ICD10: J02.9 (primary diagnosis) - suspect viral - Rapid Strep negative in the office today and Throat culture pending - Discussed supportive care treatment with fluids, rest and analgesia. - The patient may also use warm salt water gargles, throat lozenges and/or OTC throat spray as needed. - Call back if drooling, increased temperature, symptoms of dehydration and/or still sick in one week - GROUP A STREPTOCOCCUS BY PCR - RAPID STREP TEST B/O 2. Other acute nonsuppurative otitis media of right ear, recurrence not specified - ICD9: 381.00, ICD10: H65.191 - Will begin treatment with Amoxicillin for 10 days - Supportive care with plenty of fluids, rest, and analgesia prn. - AMOXICILLIN 875 MG TABLET - Follow-up with your PCP in 3-5 days if symptoms have not improved or sooner if symptoms worsen - Discussed red flags and need for immediate medical evaluation if any occur. - Discussed supportive care treatment with fluids, rest and analgesia. - Discussed expected course of illness BLAISE Marin APRN.CNP 07/04/2018 10:48 AM Signed ASSESSMENT/PLAN: 1. Sore throat - ICD9: 462, ICD10: J02.9 (primary diagnosis) - suspect viral - Rapid Strep negative in the office today and Throat culture pending - Discussed supportive care treatment with fluids, rest and analgesia. - The patient may also use warm salt water gargles, throat lozenges and/or OTC throat spray as needed. - Call back if drooling, increased temperature, symptoms of dehydration and/or still sick in one week - GROUP A STREPTOCOCCUS BY PCR - RAPID STREP TEST B/O 2. Other acute nonsuppurative otitis media of right ear, recurrence not specified - ICD9: 381.00, ICD10: H65.191 - Will begin treatment with Amoxicillin for 10 days - Supportive care with plenty of fluids, rest, and analgesia prn. - AMOXICILLIN 875 MG TABLET - Follow-up with your PCP in 3-5 days if symptoms have not improved or sooner if symptoms worsen - Discussed red flags and need for immediate medical evaluation if any occur. - Discussed supportive care treatment with fluids, rest and analgesia. - Discussed expected course of illness Chasidy Luther APRN.TELETYPESETTER OPERATOR OTITIS MEDIA GENERAL INFORMATION: Otitis media is an infection of the middle ear. The middle ear sits behind the eardrum. This infection may be caused by a virus or bacteria and often follows a cold. Children often have repeat ear infections. Otitis media is not contagious. INSTRUCTIONS: 1. An antibiotic has been prescribed. It should be taken exactly as prescribed. Do not stop the medicine even if the symptoms go away. 2. Fldz-lnn-qrfzibb pain medication may be taken or other pain medication as prescribed by the doctor. 3. Nothing should be placed in the ear unless instructed by your doctor. 4. The patient may return to school/daycare or work when the temperature is normal (98.6 F or 37 C). 5. The patient should not swim while the ear is infected. CONTACT YOUR DOCTOR IF YOU OR YOUR CHILD: 1. Does not feel better within 36 hours. 2. Develops a temperature over 102E F (39E C). 3. Starts vomiting or has diarrhea. 4. Develops drainage from the affected ear. 5. Has any new problem that may be related to the medicine prescribed. RETURN TO THE ED IF: 1. You or your child has a severe headache or pain around the ear. 2. You or your child notice swelling around the ear. 3. You or your child has a seizure (convulsion), twitching of the facial muscles, or passes out. 4. You or your child is dizzy, has a stiff neck, or cannot walk or talk normally. 5. Your child becomes more irritable or listless (not interested in his or her surroundings, does not get soothed by you holding him or her). Referring Provider: SELF [200] Allergies As of Date: 07/04/2018 (No Known Allergies) Date Reviewed: 07/04/2018 Reviewed by: Chasidy ([facility]) [place] - Fully Assessed Reason for Visit: Cough [28] Cmt: bilateral ear pain, sore throat on claritin d from ed x 1 week Primary Visit Diagnosis:Sore throat [J02.9] Other Visit Diagnosis:Other acute nonsuppurative otitis media of right ear, recurrence not specified [H65.191] Order(s):GROUP A STREPTOCOCCUS BY PCR [SQGASPCR] Order #: [id number] RAPID STREP TEST B/O [5915000] Order #: [id number] amoxicillin (AMOXIL) 875 mg tabletTake 1 tablet by mouth twice daily for 10 days.Disp: 20 tabletRfl: 0 Prescriptions as of 07/04/2018 Sig: ESCITALOPRAM 20 MG TABLET Take 1 tablet by mouth once d* FLUTICASONE 50 MCG/ACTUATION * Use 2 Sprays in each nostril * AMOXICILLIN 875 MG TABLET Take 1 tablet by mouth twice * Problem List As Of Date 07/04/2018 Noted Resolved PTSD (post-traumatic stress disorder) [F43.10] INVALID FOR* Depression [F32.9] INVALID FOR* Anxiety [F41.9] INVALID FOR* Chronic headaches [R51] INVALID FOR* Other instructions from your clinician: ASSESSMENT/PLAN: 1. Sore throat - ICD9: 462, ICD10: J02.9 (primary diagnosis) - suspect viral - Rapid Strep negative in the office today and Throat culture pending - Discussed supportive care treatment with fluids, rest and analgesia. - The patient may also use warm salt water gargles, throat lozenges and/or OTC throat spray as needed. - Call back if drooling, increased temperature, symptoms of dehydration and/or still sick in one week - GROUP A STREPTOCOCCUS BY PCR - RAPID STREP TEST B/O 2. Other acute nonsuppurative otitis media of right ear, recurrence not specified - ICD9: 381.00, ICD10: H65.191 - Will begin treatment with Amoxicillin for 10 days - Supportive care with plenty of fluids, rest, and analgesia prn. - AMOXICILLIN 875 MG TABLET - Follow-up with your PCP in 3-5 days if symptoms have not improved or sooner if symptoms worsen - Discussed red flags and need for immediate medical evaluation if any occur. - Discussed supportive care treatment with fluids, rest and analgesia. - Discussed expected course of illness Chasidy Luther APRN.TELETYPESETTER OPERATOR OTITIS MEDIA GENERAL INFORMATION: Otitis media is an infection of the middle ear. The middle ear sits behind the eardrum. This infection may be caused by a virus or bacteria and often follows a cold. Children often have repeat ear infections. Otitis media is not contagious. INSTRUCTIONS: 1. An antibiotic has been prescribed. It should be taken exactly as prescribed. Do not stop the medicine even if the symptoms go away. 2. Lpgy-efa-nygqcrn pain medication may be taken or other pain medication as prescribed by the doctor. 3. Nothing should be placed in the ear unless instructed by your doctor. 4. The patient may return to school/daycare or work when the temperature is normal (98.6 F or 37 C). 5. The patient should not swim while the ear is infected. CONTACT YOUR DOCTOR IF YOU OR YOUR CHILD: 1. Does not feel better within 36 hours. 2. Develops a temperature over 102E F (39E C). 3. Starts vomiting or has diarrhea. 4. Develops drainage from the affected ear. 5. Has any new problem that may be related to the medicine prescribed. RETURN TO THE ED IF: 1. You or your child has a severe headache or pain around the ear. 2. You or your child notice swelling around the ear. 3. You or your child has a seizure (convulsion), twitching of the facial muscles, or passes out. 4. You or your child is dizzy, has a stiff neck, or cannot walk or talk normally. 5. Your child becomes more irritable or listless (not interested in his or her surroundings, does not get soothed by you holding him or her). Prescriptions ordered this encounter Disp Refills Start End AMOXICILLIN 875 MG TABLET 20 t* 0 07/04/2018 07/14/2018 Route: ORAL Sig: Take 1 tablet by mouth twice daily for 10 days. Medications Discontinued During This Encounter Zrnrlfbiybxob-Czbsdsiosqheg-TF (TYLE* 30 t* 0 06/28/2018 07/04/2018 Route: ORAL Sig: Take 1 Dose by mouth as directed. Patient not taking: Reported on 07/04/2018 Disc: Reason for discontinue is not on file. Letter Text Chasidy Luther APRN.MANSOOR Urgent [facility] [address] [facility] [address] Dept: [phone] 07/04/2018 Ruby Penn Colbyjordana 735 07/19 [facility] [address] To Whom it May Concern: This is to certify that Ruby Penn Colbyjordana was seen at our office for medical care. Ruby may return to work on 07/05/2018. If you have any questions please feel free to call. Sincerely: Chasidy Luther APRN.MANSOOR Encounter Status:Closed by CHASIDY LUTHER on 07/04/18 EMERGENCY DEPARTMENT Observed: 06/29/2018 Status: F Source: [place] SUMMARY 9:44 AM [facility] REPOSITORY [facility] Medical Records Department [address] [place] [address] Emergency Department Summary 06/29/18 0939 MR#: [id number] Acct: [id number] Name: RUBY COTTER Rep #: [id number] : 1985 32 From: Shahbaz Albert DO PCP: Shady Sahni MD Status: REG ER - ER Visit Summary Date of Service: 06/29/18 Chief Complaint: Ear pain and sore throat History of Present Illness: The patient is a 32 F who presents with bilateral ear pain and sore throat that has been getting worse over the past week. Patient states she has pressure in her ears. She admits to some nasal congestion and a headache. Patient also admits to nonproductive cough. Patient admits to subjective fevers and chills. Patient also admits to some pain in her chest with coughing. Patient denies any neck or back pain. Physical Examination: Vital signs are stable. Patient is afebrile. Patient is in no acute distress. Pupils are equal, round, reactive to light bilaterally. Extraocular muscles are intact. Tympanic membranes show effusions bilaterally but there is no erythema. Oral mucosa is pink and moist. Oropharynx shows some mild post oral pharyngeal erythema. There are no exudates noted. Neck is supple. Trachea is midline. There is anterior cervical lymphadenopathy noted. There is no tenderness. Heart was regular rate and rhythm. Lungs are clear and equal bilaterally. The remaining physical exam is within normal limits. Emergency Department Course and Treatment: Patient was given a note for work for today. Patient was given a prescription for Claritin-D. Patient was instructed to follow-up with her primary care physician in 5-7 days. Patient understood and was agreeable with the plan. All questions were answered. Disposition: Discharged home Impression: Viral upper respiratory infection This note was generated with [employer] dictation software. It may contain incorrect words, spelling, and punctuation that were not noted in review of the chart prior to signing ED Disposition - Plan for ED Patient: Disposition: Home or Assisted Living Chief Complaint: Ear Problem Diagnosis: Upper respiratory infection, viral Instructions: ED Pharyngitis Viral Prescriptions: Loratadine/Pseudo 240/10 [Claritin-D 24 Hr] 1 tab PO DAILY #10 tab Referrals: Shady Sahni MD [Primary Care Provider] - What to do if you have Problems For any increased pain, shortness of breath, bleeding, nausea or vomiting, chest pain, or any unexpected problems, contact your Primary Care Provider. Call [facility] ([phone]) or report to the closest Emergency Room. Call 911 if necessary. 06/29/18 0944 <Electronically signed by Shahbaz Albert DO> Date Shahbaz Albert DO Cosigner Signature (If Indicated): Date CC: Shady Sahni MD PROGRESS Observed: 06/28/2018 Status: COMPLETED Source: [place] 9:44 AM [facility] REPOSITORY HNO ID: [id number] Author: Nicole Castellanos Service: (none) Author Type: Nurse Practitioner Type: Progress Notes Filed: 06/28/2018 9:46 AM Note Text: Subjective HPI Pt presents with c/o one day hx sore throat, nasal congestion and bilateral ear pressure. Denies fever, chills, myalgias, cough. Has not taken any OTC medications. Called off work today d/t sx, requests work excuse. Review of Systems Constitutional: Negative for chills and fever. HENT: Positive for congestion, ear pain and sore throat. Negative for ear discharge, sinus pain and tinnitus. Respiratory: Negative for cough, sputum production, shortness of breath and wheezing. Cardiovascular: Negative for chest pain. Skin: Negative for rash. Neurological: Negative for headaches. Objective Physical Exam Constitutional: She is oriented to person, place, and time and well-developed, well-nourished, and in no distress. No distress. HENT: Head: Normocephalic. Right Ear: Hearing, external ear and ear canal normal. A middle ear effusion is present. Left Ear: Hearing, external ear and ear canal normal. A middle ear effusion is present. Nose: Nose normal. Right sinus exhibits no maxillary sinus tenderness and no frontal sinus tenderness. Left sinus exhibits no maxillary sinus tenderness and no frontal sinus tenderness. Mouth/Throat: Uvula is midline, oropharynx is clear and moist and mucous membranes are normal. No oropharyngeal exudate, posterior oropharyngeal edema, posterior oropharyngeal erythema or tonsillar abscesses. Eyes: Pupils are equal, round, and reactive to light. Conjunctivae are normal. Right eye exhibits no discharge. Left eye exhibits no discharge. Neck: Neck supple. Cardiovascular: Normal rate, regular rhythm and normal heart sounds. Exam reveals no gallop and no friction rub. No murmur heard. Pulmonary/Chest: Effort normal and breath sounds normal. No accessory muscle usage. No tachypnea. No respiratory distress. She has no decreased breath sounds (CTA, good air movement throughout, no cough noted during exam.). She has no wheezes. She has no rhonchi. She has no rales. Lymphadenopathy: She has no cervical adenopathy. Neurological: She is alert and oriented to person, place, and time. Skin: Skin is warm. She is not diaphoretic. BP 122/80 Pulse 74 Temp 37.1 ?C (98.7 ?F) (Tympanic) Resp 14 Wt 77 kg (169 lb 12.8 oz) LMP 02/21/2014 BMI 30.08 kg/m? .Patient presents with: Sore Throat: irritated x1 week Nasal Congestion: x1 week PAST MEDICAL HISTORY Diagnosis Date - Anxiety - Depression - Post traumatic stress disorder was seeing psych PAST SURGICAL HISTORY Procedure Laterality Date - DELIVERY ONLY 2006 , low transverse - DELIVERY ONLY 2009 , low transverse - HYSTERECTOMY 2013 with removal of tubes, ovaries left in place, for menorrhagia - PCHG TUBAL W/ 2008 ALLERGIES Patient has no known allergies. MEDICATIONS escitalopram oxalate (LEXAPRO) 20 mg tablet Take 1 tablet by mouth once daily. fluticasone (FLONASE) 50 mcg/actuation nasal spray Use 2 Sprays in each nostril once daily. Rinse mouth after use. Dtzhixktpliae-Sigvrugaltypm-FV (TYLENOL COLD HEAD CONGEST SEVR) 5-325-200 mg tab Take 1 Dose by mouth as directed. FAMILY HISTORY Problem Relation Age of Onset - None Mother - other (brain tumor) Father - Coronary Artery Disease Paternal Uncle Social History Substance Use Topics - Smoking status: Current Some Day Smoker Packs/day: 1.00 Years: 10.00 - Smokeless tobacco: Never Used Comment: smoking vaps - Alcohol use No ASSESSMENT/PLAN: 1. Viral URI - ICD9: 465.9, ICD10: J06.9 (primary diagnosis) - Discussed viral etiology and rationale for treatment. - Symptomatic treatment with prn analgesia - Supportive care with fluids and rest - Follow up in 3-5 days if symptoms persist or sooner if worsening of symptoms - HALTFARKQDKOT-PIIWQKYIAGABU-XEUDHCMDGQQ 5 MG-325 MG-200 MG TABLET 2. Sore throat - ICD9: 462, ICD10: J02.9 - Rapid Strep negative in the office today and Throat culture pending - Discussed supportive care treatment with fluids, rest and analgesia. - The patient should follow up in 3-5 days if symptoms persist or worsen - Call back if drooling, increased temperature, symptoms of dehydration and/or still sick in one week - RAPID STREP TEST B/O - GROUP A STREPTOCOCCUS BY PCR 3. Fluid level behind tympanic membrane of both ears - ICD9: 381.4, ICD10: H65.93 - FLUTICASONE 50 MCG/ACTUATION NASAL SPRAY,SUSPENSION The patient is instructed to return or seek emergency treatment if symptoms become worse or with any acute change in condition. The patient verbalizes understanding and is in agreement with plan of care. Nicole Castellanos CNP GROUP A STREP BY Collected: 06/28/2018 Status: F Source: [place] PCR 9:33 AM [facility] REPOSITORY TYPE CODE TESTS RESULT OUT OF REFERENCE UNITS RANGE LAB GASSRC Throat Swab GAS Specimen Source LAB PCRGAS Negative for Group A Strep Group A PCR Streptococcus by PCR. Result Comment: This test was developed and its performance characteristics determined by [facility] ([facility]). It has not been cleared or approved by the FDA. [facility] is regulated under CLIA as qualified to perform high-complexity testing. This test is used for clinical purposes. It should not be regarded as inv estigational or for research. Performed By: #### GASPCR #### [facility] Targeted [employer] [address] [place], [place] [address] CNOV Observed: 06/28/2018 Status: COMPLETED Source: [place] 8:45 AM [facility] REPOSITORY [facility] CYNDEERUBY ([id number]) 1985 F Date Time Provider Department 06/28/18 8:45 AM NICOLE CASTELLANOS [facility] During your visit today, we recorded the following information about you: Temperature Pulse Respiration Blood pressure 98.7 degrees 74/minute 14/minute 122/80 Weight 77 kg Nicole Castellanos APRN.TELETYPESETTER OPERATOR 06/28/2018 9:46 AM Signed Subjective HPI Pt presents with c/o one day hx sore throat, nasal congestion and bilateral ear pressure. Denies fever, chills, myalgias, cough. Has not taken any OTC medications. Called off work today d/t sx, requests work excuse. Review of Systems Constitutional: Negative for chills and fever. HENT: Positive for congestion, ear pain and sore throat. Negative for ear discharge, sinus pain and tinnitus. Respiratory: Negative for cough, sputum production, shortness of breath and wheezing. Cardiovascular: Negative for chest pain. Skin: Negative for rash. Neurological: Negative for headaches. Objective Physical Exam Constitutional: She is oriented to person, place, and time and well-developed, well-nourished, and in no distress. No distress. HENT: Head: Normocephalic. Right Ear: Hearing, external ear and ear canal normal. A middle ear effusion is present. Left Ear: Hearing, external ear and ear canal normal. A middle ear effusion is present. Nose: Nose normal. Right sinus exhibits no maxillary sinus tenderness and no frontal sinus tenderness. Left sinus exhibits no maxillary sinus tenderness and no frontal sinus tenderness. Mouth/Throat: Uvula is midline, oropharynx is clear and moist and mucous membranes are normal. No oropharyngeal exudate, posterior oropharyngeal edema, posterior oropharyngeal erythema or tonsillar abscesses. Eyes: Pupils are equal, round, and reactive to light. Conjunctivae are normal. Right eye exhibits no discharge. Left eye exhibits no discharge. Neck: Neck supple. Cardiovascular: Normal rate, regular rhythm and normal heart sounds. Exam reveals no gallop and no friction rub. No murmur heard. Pulmonary/Chest: Effort normal and breath sounds normal. No accessory muscle usage. No tachypnea. No respiratory distress. She has no decreased breath sounds (CTA, good air movement throughout, no cough noted during exam.). She has no wheezes. She has no rhonchi. She has no rales. Lymphadenopathy: She has no cervical adenopathy. Neurological: She is alert and oriented to person, place, and time. Skin: Skin is warm. She is not diaphoretic. BP 122/80 Pulse 74 Temp 37.1 ?C (98.7 ?F) (Tympanic) Resp 14 Wt 77 kg (169 lb 12.8 oz) LMP 02/21/2014 BMI 30.08 kg/m? .Patient presents with: Sore Throat: irritated x1 week Nasal Congestion: x1 week PAST MEDICAL HISTORY Diagnosis Date - Anxiety - Depression - Post traumatic stress disorder was seeing psych PAST SURGICAL HISTORY Procedure Laterality Date - DELIVERY ONLY 2006 , low transverse - DELIVERY ONLY 2009 , low transverse - HYSTERECTOMY 2013 with removal of tubes, ovaries left in place, for menorrhagia - PCHG TUBAL W/ 2008 ALLERGIES Patient has no known allergies. MEDICATIONS escitalopram oxalate (LEXAPRO) 20 mg tablet Take 1 tablet by mouth once daily. fluticasone (FLONASE) 50 mcg/actuation nasal spray Use 2 Sprays in each nostril once daily. Rinse mouth after use. Lbwpibnepyetm-Fxttrszhyboas-NE (TYLENOL COLD HEAD CONGEST SEVR) 5-325-200 mg tab Take 1 Dose by mouth as directed. FAMILY HISTORY Problem Relation Age of Onset - None Mother - other (brain tumor) Father - Coronary Artery Disease Paternal Uncle Social History Substance Use Topics - Smoking status: Current Some Day Smoker Packs/day: 1.00 Years: 10.00 - Smokeless tobacco: Never Used Comment: smoking vaps - Alcohol use No ASSESSMENT/PLAN: 1. Viral URI - ICD9: 465.9, ICD10: J06.9 (primary diagnosis) - Discussed viral etiology and rationale for treatment. - Symptomatic treatment with prn analgesia - Supportive care with fluids and rest - Follow up in 3-5 days if symptoms persist or sooner if worsening of symptoms - ZKFHAAQSQVRAQ-VKGWICCCCAIKO-DXEKGGXHGRW 5 MG-325 MG-200 MG TABLET 2. Sore throat - ICD9: 462, ICD10: J02.9 - Rapid Strep negative in the office today and Throat culture pending - Discussed supportive care treatment with fluids, rest and analgesia. - The patient should follow up in 3-5 days if symptoms persist or worsen - Call back if drooling, increased temperature, symptoms of dehydration and/or still sick in one week - RAPID STREP TEST B/O - GROUP A STREPTOCOCCUS BY PCR 3. Fluid level behind tympanic membrane of both ears - ICD9: 381.4, ICD10: H65.93 - FLUTICASONE 50 MCG/ACTUATION NASAL SPRAY,SUSPENSION The patient is instructed to return or seek emergency treatment if symptoms become worse or with any acute change in condition. The patient verbalizes understanding and is in agreement with plan of care. Nicole Castellanos CNP Referring Provider: SELF [200] Allergies As of Date: 06/28/2018 (No Known Allergies) Date Reviewed: 06/28/2018 Reviewed by: Cindy Martin Ma - Fully Assessed Reason for Visit: Sore Throat [200] Cmt: irritated x1 week Nasal Congestion [235] Cmt: x1 week Primary Visit Diagnosis:Viral URI [J06.9] Other Visit Diagnoses:Sore throat [J02.9] Fluid level behind tympanic membrane of both ears [H65.93] Order(s):RAPID STREP TEST B/O [[id number]] Order #: [id number] GROUP A STREPTOCOCCUS BY PCR [SQGASPCR] Order #: [id number] Zfhhzgrcshlrd-Qtcoebebzfddc-OO (TYLENOL COLD HEAD CONGEST SEVR) 5-325-200 mg tabTake 1 Dose by mouth as directed.Disp: 30 tabletRfl: 0 fluticasone (FLONASE) 50 mcg/actuation nasal sprayUse 2 Sprays in each nostril once daily. Rinse mouth after use.Disp: 1 BottleRfl: 1 Prescriptions as of 06/28/2018 Sig: ESCITALOPRAM 20 MG TABLET Take 1 tablet by mouth once d* FLUTICASONE 50 MCG/ACTUATION * Use 2 Sprays in each nostril * JBTLEYLRGBTDB-ZKSJJQZXGLIDJ-J* Take 1 Dose by mouth as direc* Problem List As Of Date 06/28/2018 Noted Resolved PTSD (post-traumatic stress disorder) [F43.10] INVALID FOR* Depression [F32.9] INVALID FOR* Anxiety [F41.9] INVALID FOR* Chronic headaches [R51] INVALID FOR* Prescriptions ordered this encounter Disp Refills Start End KLIZPHLVCNCBI-ZILTIQQKDOOSX-UBTACKMV* 30 t* 0 06/28/2018 Route: ORAL Sig: Take 1 Dose by mouth as directed. FLUTICASONE 50 MCG/ACTUATION NASAL S* 1 Larry* 1 06/28/2018 Route: EACH NOSTRIL Sig: Use 2 Sprays in each nostril once daily. Rinse mouth after use. Letter Text Nicole Castellanos APRN.CNP Urgent Care [address] [facility] [address] Dept: [phone] 06/28/2018 Ruby Cotter 735 07/19 [place] [address] To Whom it May Concern: This is to certify that Ruby Cotter was seen at our office for medical care. If you have any questions please feel free to call. Sincerely: Nicole Castellanos APRN.MANSOOR Encounter Status:Closed by NICOLE CASTELLANOS CNP on 06/28/18 CNOV Observed: 05/22/2018 Status: COMPLETED Source: [place] 9:40 AM [facility] REPOSITORY Office Visit ([facility]) RUBY COTTER ([id number]) 1985 F Date Time Provider Department 05/22/18 9:40 AM JOYCE BOOKER ([facility]) [facility] During your visit today, we recorded the following information about you: Pulse Respiration Blood pressure Weight 74/minute 14/minute 120/64 72.6 kg Joyce Booker APRN.MANSOOR 05/22/2018 9:41 AM Signed This is a 32 year old female who presents today with: Patient presents with: Medication Follow-up HISTORY OF PRESENT ILLNESS: Ruby Cotter is a 32 year old female. Patient presents with: Medication Follow-up Pt presents today to follow-up on lexapro. Reports overall improvement. Refers that her anxiety is improved. Refers that she is still on edge and thinks would benefit from an increase in milligrams. Continues to go to counseling. Goes to [facility] -- goes every 2-3 weeks. Depression evaluation: Sadness: + -- recently treated for a breast infection and reports more emotional while on antibiotic. Sleep: Yes -- getting up earlier for no reason. Interests/Hobbies: School -- going for behavioral medical director. Has 5 kids in the house (2 of her own and 3 step children). Guilt: no Energy Levels: Alright -- not the greatest -- did improve with the lexapro. Concentration: Trouble with concentration - had this problem previously. Appetite: okay Physical: no Suicidal/homicidal ideation: Denies. PAST MEDICAL HISTORY: PAST MEDICAL HISTORY Diagnosis Date - Anxiety - Depression - Post traumatic stress disorder was seeing psych PAST SURGICAL HISTORY Procedure Laterality Date - DELIVERY ONLY 2006 , low transverse - DELIVERY ONLY 2009 , low transverse - HYSTERECTOMY 2014 with removal of tubes, ovaries left in place, for menorrhagia - PCHG TUBAL W/ 2008 ALLERGIES Patient has no known allergies. MEDICATIONS Current Outpatient Prescriptions: cephALEXin (KEFLEX) 500 mg capsule Take 1 capsule by mouth four times daily for 10 days. escitalopram oxalate (LEXAPRO) 10 mg tablet Take 1 tablet by mouth once daily. No current facility-administered medications for this visit. 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 PHYSICAL EXAM: General Appearance: Well appearing, alert, in no acute distress, well-hydrated, well nourished.. Skin: Skin color, texture, turgor normal, no suspicious rashes or lesions. Head: Normocephalic, no masses, lesions, tenderness or abnormalities. Eyes: Anicteric sclera. Extraocular movements are intact. . Lungs: Lungs clear to auscultation. No wheezing, rhonchi, rales. Heart: RRR without murmur, gallop, or rubs. No ectopy. Extremities: No deformities, edema, skin discoloration, clubbing or cyanosis. Neurologic: Gait normal. Reflexes normal and symmetric. Sensation grossly intact.. ASSESSMENT/PLAN: 1. Anxiety - ICD9: 300.00, ICD10: F41.9 Some improvement with the lexapro, however, thinks could be improved. Okay to increase lexapro to 20 mg. Continue counseling. Recheck in a month. - ESCITALOPRAM 20 MG TABLET Discussed treatment plan and patient voices understanding. Patient's questions answered appropriately. Medications and potential side effects were discussed and patient voices understanding. Return to the office as scheduled or as needed for worsening/no improvement. Joyce Booker APRN.MANSOOR Booker APRN.CNP 05/22/2018 9:38 AM Signed 1. Can increase the lexapro to 20 mg (can use two of the current pills until picks up new script). 2. Recheck in 1 month. Referring Provider: SELF [200] Allergies As of Date: 05/22/2018 (No Known Allergies) Date Reviewed: 05/22/2018 Reviewed by: Dede Lam Cma - Fully Assessed Reason for Visit: Medication Follow-up [270] Primary Visit Diagnosis:Anxiety [F41.9] Order(s):escitalopram oxalate (LEXAPRO) 20 mg tabletTake 1 tablet by mouth once daily.Disp: 30 tabletRfl: 2 Prescriptions as of 05/22/2018 Sig: CEPHALEXIN 500 MG CAPSULE Take 1 capsule by mouth four * ESCITALOPRAM 20 MG TABLET Take 1 tablet by mouth once d* Problem List As Of Date 05/22/2018 Noted Resolved PTSD (post-traumatic stress disorder) [F43.10] INVALID FOR* Depression [F32.9] INVALID FOR* Anxiety [F41.9] INVALID FOR* Chronic headaches [R51] INVALID FOR* Other instructions from your clinician: 1. Can increase the lexapro to 20 mg (can use two of the current pills until picks up new script). 2. Recheck in 1 month. Prescriptions ordered this encounter Disp Refills Start End ESCITALOPRAM 20 MG TABLET 30 t* 2 05/22/2018 Route: ORAL Sig: Take 1 tablet by mouth once daily. Medications Discontinued During This Encounter escitalopram oxalate (LEXAPRO) 10 mg* 30 t* 1 04/07/2018 05/22/2018 Route: ORAL Sig: Take 1 tablet by mouth once daily. Disc: Dosage adjustment Encounter Status:Closed by JOYCE BOOKER CNP on 05/22/18 PROGRESS Observed: 05/22/2018 Status: COMPLETED Source: [place] 9:27 AM [facility] REPOSITORY O ID: [id number] Author: Joyce (Mansoor) Jhony Service: (none) Author Type: Nurse Practitioner Type: Progress Notes Filed: 05/22/2018 9:41 AM Note Text: This is a 32 year old female who presents today with: Patient presents with: Medication Follow-up HISTORY OF PRESENT ILLNESS: Ruby Cotter is a 32 year old female. Patient presents with: Medication Follow-up Pt presents today to follow-up on lexapro. Reports overall improvement. Refers that her anxiety is improved. Refers that she is still on edge and thinks would benefit from an increase in milligrams. Continues to go to counseling. Goes to [facility] -- goes every 2-3 weeks. Depression evaluation: Sadness: + -- recently treated for a breast infection and reports more emotional while on antibiotic. Sleep: Yes -- getting up earlier for no reason. Interests/Hobbies: School -- going for behavioral medical director. Has 5 kids in the house (2 of her own and 3 step children). Guilt: no Energy Levels: Alright -- not the greatest -- did improve with the lexapro. Concentration: Trouble with concentration - had this problem previously. Appetite: okay Physical: no Suicidal/homicidal ideation: Denies. PAST MEDICAL HISTORY: PAST MEDICAL HISTORY Diagnosis Date - Anxiety - Depression - Post traumatic stress disorder was seeing psych PAST SURGICAL HISTORY Procedure Laterality Date - DELIVERY ONLY 2006 , low transverse - DELIVERY ONLY 2009 , low transverse - HYSTERECTOMY 2013 with removal of tubes, ovaries left in place, for menorrhagia - PCHG TUBAL W/ 2008 ALLERGIES Patient has no known allergies. MEDICATIONS Current Outpatient Prescriptions: cephALEXin (KEFLEX) 500 mg capsule Take 1 capsule by mouth four times daily for 10 days. escitalopram oxalate (LEXAPRO) 10 mg tablet Take 1 tablet by mouth once daily. No current facility-administered medications for this visit. 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 PHYSICAL EXAM: General Appearance: Well appearing, alert, in no acute distress, well-hydrated, well nourished.. Skin: Skin color, texture, turgor normal, no suspicious rashes or lesions. Head: Normocephalic, no masses, lesions, tenderness or abnormalities. Eyes: Anicteric sclera. Extraocular movements are intact. . Lungs: Lungs clear to auscultation. No wheezing, rhonchi, rales. Heart: RRR without murmur, gallop, or rubs. No ectopy. Extremities: No deformities, edema, skin discoloration, clubbing or cyanosis. Neurologic: Gait normal. Reflexes normal and symmetric. Sensation grossly intact.. ASSESSMENT/PLAN: 1. Anxiety - ICD9: 300.00, ICD10: F41.9 Some improvement with the lexapro, however, thinks could be improved. Okay to increase lexapro to 20 mg. Continue counseling. Recheck in a month. - ESCITALOPRAM 20 MG TABLET Discussed treatment plan and patient voices understanding. Patient's questions answered appropriately. Medications and potential side effects were discussed and patient voices understanding. Return to the office as scheduled or as needed for worsening/no improvement. Joyce Booker APRN.CNP CNOV Observed: 05/15/2018 Status: COMPLETED Source: [place] 1:15 PM [facility] REPOSITORY Office Visit ([facility]) CYNDEERUBY Penn ([id number]) 1985 F Date Time Provider Department 05/15/18 1:15 PM EBONY MAN (MANSOOR) [facility] During your visit today, we recorded the following information about you: Temperature Blood pressure Weight 99.5 degrees 130/64 73.9 kg Ebony Man APRN.CNP 05/15/2018 1:51 PM Signed Ruby Penn Cyndee is a 32 year old Obstetric History T2 L2 SAB0 TAB0 Ectopic0 Multiple0 Live Births0 who presents with pain, redness and fluid out of nipple in the left breast. Pt states that over the weekend she took out the piercing and was able to get pus out of the holes but nothing today. Denies any fever over the wkd but temp in office today 99.5F. Her history includes: No prior breast problems, fever - yes, chills - no. OBJECTIVE: LUNGS: normal inspiratory rate BREASTS: Normal consistency, no palpable masses., Normal nipples without discharge., No axillary lymphadenopathy., Positive findings: left breast is warm to touch and tender with exam. Left breast is larger then the right. Piercing has been remove (piercing was over a yr ago). IMPRESSION: Breast infection left PLAN: Cephalexin 500mg QID for 10 days Call office if no improvement or worsen of s/s. I have reviewed and updated past medical and surgical history, medications and allergies. Ebony Man, DEBO.TELETYPESETTER OPERATOR Referring Provider: SELF [[id number]] Allergies As of Date: 05/15/2018 (No Known Allergies) Date Reviewed: 05/15/2018 Reviewed by: Ebony Man - Fully Assessed Reason for Visit: breast issue [Other] Cmt: left breast painful,swollen, pus from piercing site x4 days Primary Visit Diagnosis:Breast infection [N61.0] Order(s):cephALEXin (KEFLEX) 500 mg capsuleTake 1 capsule by mouth four times daily for 10 days.Disp: 40 capsuleRfl: 0 Prescriptions as of 05/15/2018 Sig: CEPHALEXIN 500 MG CAPSULE Take 1 capsule by mouth four * ESCITALOPRAM 10 MG TABLET Take 1 tablet by mouth once d* Problem List As Of Date 05/15/2018 Noted Resolved PTSD (post-traumatic stress disorder) [F43.10] INVALID FOR* Depression [F32.9] INVALID FOR* Anxiety [F41.9] INVALID FOR* Chronic headaches [R51] INVALID FOR* Prescriptions ordered this encounter Disp Refills Start End CEPHALEXIN 500 MG CAPSULE 40 c* 0 05/15/2018 05/25/2018 Route: ORAL Sig: Take 1 capsule by mouth four times daily for 10 days. Encounter Status:Closed by EBONY MAN on 05/15/18 PROGRESS Observed: 05/15/2018 Status: COMPLETED Source: [place] 1:14 PM [facility] REPOSITORY HNO ID: [id number] Author: Ebony Man Service: (none) Author Type: Nurse Practitioner Type: Progress Notes Filed: 05/15/2018 1:51 PM Note Text: Ruby Cotter is a 32 year old Obstetric History T2 L2 SAB0 TAB0 Ectopic0 Multiple0 Live Births0 who presents with pain, redness and fluid out of nipple in the left breast. Pt states that over the weekend she took out the piercing and was able to get pus out of the holes but nothing today. Denies any fever over the wkd but temp in office today 99.5F. Her history includes: No prior breast problems, fever - yes, chills - no. OBJECTIVE: LUNGS: normal inspiratory rate BREASTS: Normal consistency, no palpable masses., Normal nipples without discharge., No axillary lymphadenopathy., Positive findings: left breast is warm to touch and tender with exam. Left breast is larger then the right. Piercing has been remove (piercing was over a yr ago). IMPRESSION: Breast infection left PLAN: Cephalexin 500mg QID for 10 days Call office if no improvement or worsen of s/s. I have reviewed and updated past medical and surgical history, medications and allergies. Ebony Man APRN.MANSOOR PROGRESS Observed: 05/04/2018 Status: COMPLETED Source: [place] 5:09 PM [facility] REPOSITORY HNO ID: [id number] Author: Angeli Beltran Service: (none) Author Type: Physician Type: Progress Notes Filed: 05/04/2018 5:09 PM Note Text: Can you please let the patient know that her pelvic US is normal? The cyst on the right ovary has resolved. The small, simple cyst that is present on the left ovary is normal with ovulation. Thanks! PROGRESS Observed: 04/07/2018 Status: COMPLETED Source: [place] 10:28 AM [facility] REPOSITORY HNO ID: [id number] Author: Shady Sahni Service: (none) Author Type: Physician Type: Progress Notes Filed: 04/07/2018 10:40 AM Note Text: Patient presents with: Anxiety HPI: Patient presents today for office visit for anxiety discussion. Nursing Notes: Arianna Marcano Ma 04/07/2018 10:12 AM Signed ANXIETY: Pt is currently being seen at the [facility], seeing counselor. Was told to come see PCP to be put back on medications. Unable to provider there. Patient has not been on medication for over 2 years because she did not want to them anymore. Sleep issues: No. Energy changes: No. Appetite changes: No. Current depression: No. Current anxiety: Yes. Suicidal ideation: No. Was seen in Dec after being in er for what may have been anxiety. Never did holter or labs as orders. Has been on a number of meds including benzo's and ssris in the past. Having issues focusing. Is over thinking. Is tearful. Worrying about things she should not be thinking about things. Is in school and had to quit job because can't do both. Denies depression. No new chest pain, palpitations. Sometimes hyperventilation. No changes in hair or skin. Was on valium which helped but we discussed avoiding benzo's. Is doing meditation and exercising. Is seeing counselor every other week. MEDICATIONS: No current outpatient prescriptions on file. No current facility-administered medications for this visit. 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 REVIEW OF SYSTEMS All other reviewed and negative other than HPI. VITALS: BP 120/76 Pulse 76 Resp 20 Wt 68.9 kg (152 lb) LMP 02/21/2014 BMI 26.93 kg/m? Last 4 Encounter Wt Readings: Date: Wt: 04/07/2018 68.9 kg (152 lb) 04/07/2018 69.6 kg (153 lb 6.4 oz) 03/01/2018 70.8 kg (156 lb) 06/29/2017 66.2 kg (146 lb) PHYSICAL EXAMINATION: General appearance: Well appearing, alert, in no acute distress, well-hydrated, well nourished. Skin: Skin color, texture, turgor normal, no suspicious rashes or lesions Head: Normocephalic, no masses, lesions, tenderness or abnormalities Neck: supple. No thyromegaly. Lungs: Lungs clear to auscultation. No wheezing, rhonchi, rales Heart: RRR without murmur, gallop, or rubs. No ectopy Abdomen: Normal abdominal exam, Abdomen soft, non-tender. Bowel sounds normal. No masses, organomegaly Extremities: No deformities, edema, skin discoloration, clubbing or cyanosis. Good capillary refill. PSYCH:Affect normal. Normal speech. Normal eye contact ASSESSMENT/PLAN: 1. Anxiety - ICD9: 300.00, ICD10: F41.9 (primary diagnosis) - begin lexapro 10 mg a day. - Red flags for re-assessment reviewed with patient in detail. - Discussed risks and benefits of new medication with the patient. Advised them to call if any side effects or questions. - RTO in one month - continue to see counselor. 2. PTSD (post-traumatic stress disorder) - ICD9: 309.81, ICD10: F43.10 - as above. Shady Sahni MD RTO in Four weeks. and prn. CAMPBELL Observed: 04/07/2018 Status: COMPLETED Source: [place] 10:20 AM [facility] REPOSITORY [facility] RUBY COTTER ([id number]) 1985 F Date Time Provider Department 04/07/18 10:20 AM [facility] During your visit today, we recorded the following information about you: Pulse Respiration Blood pressure Weight 76/minute 20/minute 120/76 68.9 kg Arianna Marcano Ma 04/07/2018 10:12 AM Signed ANXIETY: Pt is currently being seen at the [facility], seeing counselor. Was told to come see PCP to be put back on medications. Unable to provider there. Patient has not been on medication for over 2 years because she did not want to them anymore. Sleep issues: No. Energy changes: No. Appetite changes: No. Current depression: No. Current anxiety: Yes. Suicidal ideation: No. Shady Sahni MD 04/07/2018 10:40 AM Signed Patient presents with: Anxiety HPI: Patient presents today for office visit for anxiety discussion. Nursing Notes: Arianna Marcano Ma 04/07/2018 10:12 AM Signed ANXIETY: Pt is currently being seen at the [facility], seeing counselor. Was told to come see PCP to be put back on medications. Unable to provider there. Patient has not been on medication for over 2 years because she did not want to them anymore. Sleep issues: No. Energy changes: No. Appetite changes: No. Current depression: No. Current anxiety: Yes. Suicidal ideation: No. Was seen in Dec after being in er for what may have been anxiety. Never did holter or labs as orders. Has been on a number of meds including benzo's and ssris in the past. Having issues focusing. Is over thinking. Is tearful. Worrying about things she should not be thinking about things. Is in school and had to quit job because can't do both. Denies depression. No new chest pain, palpitations. Sometimes hyperventilation. No changes in hair or skin. Was on valium which helped but we discussed avoiding benzo's. Is doing meditation and exercising. Is seeing counselor every other week. MEDICATIONS: No current outpatient prescriptions on file. No current facility-administered medications for this visit. 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 REVIEW OF SYSTEMS All other reviewed and negative other than HPI. VITALS: BP 120/76 Pulse 76 Resp 20 Wt 68.9 kg (152 lb) LMP 02/21/2014 BMI 26.93 kg/m? Last 4 Encounter Wt Readings: Date: Wt: 04/07/2018 68.9 kg (152 lb) 04/07/2018 69.6 kg (153 lb 6.4 oz) 03/01/2018 70.8 kg (156 lb) 06/29/2017 66.2 kg (146 lb) PHYSICAL EXAMINATION: General appearance: Well appearing, alert, in no acute distress, well-hydrated, well nourished. Skin: Skin color, texture, turgor normal, no suspicious rashes or lesions Head: Normocephalic, no masses, lesions, tenderness or abnormalities Neck: supple. No thyromegaly. Lungs: Lungs clear to auscultation. No wheezing, rhonchi, rales Heart: RRR without murmur, gallop, or rubs. No ectopy Abdomen: Normal abdominal exam, Abdomen soft, non-tender. Bowel sounds normal. No masses, organomegaly Extremities: No deformities, edema, skin discoloration, clubbing or cyanosis. Good capillary refill. PSYCH:Affect normal. Normal speech. Normal eye contact ASSESSMENT/PLAN: 1. Anxiety - ICD9: 300.00, ICD10: F41.9 (primary diagnosis) - begin lexapro 10 mg a day. - Red flags for re-assessment reviewed with patient in detail. - Discussed risks and benefits of new medication with the patient. Advised them to call if any side effects or questions. - RTO in one month - continue to see counselor. 2. PTSD (post-traumatic stress disorder) - ICD9: 309.81, ICD10: F43.10 - as above. Shady Sahni MD RTO in Four weeks. and prn. Referring Provider: SELF [[id number]] Allergies As of Date: 04/07/2018 (No Known Allergies) Date Reviewed: 04/07/2018 Reviewed by: Arianna Marcano Ma - Fully Assessed Reason for Visit: Anxiety [9] Primary Visit Diagnosis:Anxiety [F41.9] Other Visit Diagnosis:PTSD (post-traumatic stress disorder) [F43.10] Order(s):escitalopram oxalate (LEXAPRO) 10 mg tabletTake 1 tablet by mouth once daily.Disp: 30 tabletRfl: 1 Prescriptions as of 04/07/2018 Sig: ESCITALOPRAM 10 MG TABLET Take 1 tablet by mouth once d* Problem List As Of Date 04/07/2018 Noted Resolved PTSD (post-traumatic stress disorder) [F43.10] INVALID FOR* Depression [F32.9] INVALID FOR* Anxiety [F41.9] INVALID FOR* Chronic headaches [R51] INVALID FOR* Visit Notes: >> Arianna Jeet Haney Apr 07, 2018 10:02 AM Status: Signed ANXIETY: Pt is currently being seen at the [facility], seeing counselor. Was told to come see PCP to be put back on medications. Unable to provider there. Patient has not been on medication for over 2 years because she did not want to them anymore. Sleep issues: No. Energy changes: No. Appetite changes: No. Current depression: No. Current anxiety: Yes. Suicidal ideation: No. Prescriptions ordered this encounter Disp Refills Start End ESCITALOPRAM 10 MG TABLET 30 t* 1 04/07/2018 Route: ORAL Sig: Take 1 tablet by mouth once daily. Disposition: Return in about 4 weeks (around 05/05/2018). Follow-up and Disposition History Recorded Encounter Status:Closed by SHADY SAHNI MD on 04/07/18 CNOV Observed: 04/07/2018 Status: COMPLETED Source: [place] 9:00 AM [facility] REPOSITORY Office Visit ([facility]) RUBY COTTER ([id number]) 1985 F Date Time Provider Department 04/07/18 9:00 AM ANGELI BELTRAN During your visit today, we recorded the following information about you: Blood pressure Weight Height 96/62 69.6 kg 1.6 m Angeli Beltran MD 04/07/2018 9:48 AM Signed Ruby Fili Cotter is a 32 year old female who presents for problem visit for RLQ pain. HPI: Had RLQ pain that started out of nowhere in the middle of the night, she woke up out of her sleep. This pain was around the first week of March. It was a constant pain. [place] like someone was pinching and pulling. No fevers, N/V, dysuria, constipation, diarrhea, VB, vaginal discharge. Went to the ED twice. Had 2 pelvic US's. On 03/25/[address] scan, pelvic US, and blood work. Hgb and WBC were nml. CT showed a likely right ovary cyst. Pelvic US on 03/25/18 showing right ovary 3.9 x 2.2 x 2.3 cm with a complex right ovarian lesion which could represent complex cyst measuring about 2.1 cm. Currently the pain has resolved. She has no complaints today. S/p hysterectomy for menorrhagia and AUB several years ago per patient. Currently sexually active. 1 partner. No hx of STI's. No concern for STI's. 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 No current facility-administered medications for this visit. Allergies As of Date: 04/07/2018 (No Known Allergies) Fully Assessed 04/07/2018 REVIEW OF SYSTEMS Abdomen: No abdominal pain, nausea, vomiting, diarrhea, or constipation. Bladder: No dysuria, gross hematuria, urinary frequency, urinary urgency, or incontinence. Expanded ROS: Denies fevers, chills, vaginal bleeding, vaginal discharge. Allergies and current medication updated:Yes EXAM: BP 96/62 Ht 5' 3 (1.60m) Wt 153 lb 6.4 oz (69.6kg) LMP 02/21/2014 BMI 27.18 kg/(m2). GENERAL: pleasant, female in no apparent distress HEENT: Normocephalic and atraumatic NECK: full range of motion DERMATOLOGY: Normal and without lesions CHEST: Normal inspiratory effort ABDOMEN: soft, non-tender and no masses PELVIC: external genitalia normal, normal Bartholin's glands, urethra, [place]'s glands, no vulvar lesions, good vaginal support, physiologic discharge present, normal appearing perineal body and perianal region BIMANUAL: no adnexal masses and non-tender NEURO: alert and oriented x3,exam grossly non-focal EXTREMITIES: normal ASSESSMENT AND PLAN: Encounter Diagnosis ICD-10-CM 1. RLQ abdominal pain R10.31 PELVIC US WHI ? RLQ has now resolved. Patient is currently asymptomatic. Benign exam ? Pelvic US on 03/25 showed a possible 2.1 cm complex right ovary cyst, no free fluid ? Will repeat US in 6 weeks and call with results ? Return for annual exam or sooner if needed Angeli Beltran, DO Referring Provider: SELF [[id number]] Allergies As of Date: 04/07/2018 (No Known Allergies) Date Reviewed: 04/07/2018 Reviewed by: Nicole Harrell - Fully Assessed Reason for Visit: Ovarian Cyst [[id number]] Cmt: ER follow up Primary Visit Diagnosis:RLQ abdominal pain [R10.31] Order(s):PELVIC US WHI [[id number]] Order #: [id number]: 1 FUTURE PELVIC US WHI [[id number]] Order #: [id number]: 1 Problem List As Of Date 04/07/2018 Noted Resolved PTSD (post-traumatic stress disorder) [F43.10] INVALID FOR* Depression [F32.9] INVALID FOR* Anxiety [F41.9] INVALID FOR* Chronic headaches [R51] INVALID FOR* Level of Service: NEW PATIENT VISIT LEVEL 2 [[id number]] Disposition: Return in about 1 year (around 04/07/2019) for annual exam. Follow-up and Disposition History Recorded Encounter Status:Closed by ANGELI BELTRAN MD on 04/07/18 PROGRESS Observed: 04/07/2018 Status: COMPLETED Source: [place] 8:59 AM [facility] HNO ID: [id number] Author: Angeli Beltran Service: (none) Author Type: Physician Type: Progress Notes Filed: 04/07/2018 9:48 AM Note Text: Ruby Cotter is a 32 year old female who presents for problem visit for RLQ pain. HPI: Had RLQ pain that started out of nowhere in the middle of the night, she woke up out of her sleep. This pain was around the first week of March. It was a constant pain. [place] like someone was pinching and pulling. No fevers, N/V, dysuria, constipation, diarrhea, VB, vaginal discharge. Went to the ED twice. Had 2 pelvic US's. On 03/25/[address] scan, pelvic US, and blood work. Hgb and WBC were nml. CT showed a likely right ovary cyst. Pelvic US on 03/25/18 showing right ovary 3.9 x 2.2 x 2.3 cm with a complex right ovarian lesion which could represent complex cyst measuring about 2.1 cm. Currently the pain has resolved. She has no complaints today. S/p hysterectomy for menorrhagia and AUB several years ago per patient. Currently sexually active. 1 partner. No hx of STI's. No concern for STI's. 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 No current facility-administered medications for this visit. Allergies As of Date: 04/07/2018 (No Known Allergies) Fully Assessed 04/07/2018 REVIEW OF SYSTEMS Abdomen: No abdominal pain, nausea, vomiting, diarrhea, or constipation. Bladder: No dysuria, gross hematuria, urinary frequency, urinary urgency, or incontinence. Expanded ROS: Denies fevers, chills, vaginal bleeding, vaginal discharge. Allergies and current medication updated:Yes EXAM: BP 96/62 Ht 5' 3 (1.60m) Wt 153 lb 6.4 oz (69.6kg) LMP 02/21/2014 BMI 27.18 kg/(m2). GENERAL: pleasant, female in no apparent distress HEENT: Normocephalic and atraumatic NECK: full range of motion DERMATOLOGY: Normal and without lesions CHEST: Normal inspiratory effort ABDOMEN: soft, non-tender and no masses PELVIC: external genitalia normal, normal Bartholin's glands, urethra, [place]'s glands, no vulvar lesions, good vaginal support, physiologic discharge present, normal appearing perineal body and perianal region BIMANUAL: no adnexal masses and non-tender NEURO: alert and oriented x3,exam grossly non-focal EXTREMITIES: normal ASSESSMENT AND PLAN: Encounter Diagnosis ICD-10-CM 1. RLQ abdominal pain R10.31 PELVIC US WHI ? RLQ has now resolved. Patient is currently asymptomatic. Benign exam ? Pelvic US on 03/25 showed a possible 2.1 cm complex right ovary cyst, no free fluid ? Will repeat US in 6 weeks and call with results ? Return for annual exam or sooner if needed Angeli Beltran DO EMERGENCY DEPARTMENT Observed: 03/30/2018 Status: F Source: [facility] SUMMARY 4:32 PM [facility] REPOSITORY [facility] Medical Records Department [address] [place] [address] Emergency Department Summary 03/30/18 1446 MR#: [id number] Acct: [id number] Name: RUBY COTTER Rep #: [id number] : 1985 32 From: Lynsey Hernandez MD PCP: Shady Sahni MD Status: DEP ER - ER Visit Summary Date of Service: 03/30/18 Chief Complaint: Right-sided abdominal pain History of Present Illness: The patient is a 32 F with right- sided abdominal pain for the past 5 days. Patient was seen in the ER on the eighth and was diagnosed with a right ovarian complex cyst. She is still having right lower quadrant pain that significant a worsened this morning. She states she is urinating frequently as well. She has not had fever or chills. Last dose of naproxen was this morning. Last dose of Denver was last night. She is an appointment to see her TIME STUDY STATISTICIAN next week. Physical Examination: Vital signs unremarkable. Patient's lying in bed no acute distress. Heart is regular rate and rhythm. Lung sounds are clear. Abdomen is soft with tenderness in the right lower quadrant. There is no guarding or rebound. Active bowel sounds noted throughout. Test Results: CBC, chemistry studies, urinalysis all normal. Pelvic ultrasound is repeated today. There is normal pelvis findings. Evidence of previous uterine removal noted. Cyst noted to the right ovary from the eighth is no longer present. Emergency Department Course and Treatment: Patient was given morphine, Zofran, and IV fluids. On repeat evaluation she is resting comfortably. I advised her that I believe her cyst is ruptured and that likely caused her increased pain. She will be given a perception for 6 tabs of Denver only. She is to follow-up with her TIME STUDY STATISTICIAN next week. Treatment Plan: [] Disposition: Discharge Impression: Abdominal pain secondary to ruptured ovarian cyst This note was generated with [employer] dictation software. It may contain incorrect words, spelling, and punctuation that were not noted in review of the chart prior to signing ED Disposition - Plan for ED Patient: Chief Complaint: Abd Pain Referrals: Shady Sahni MD [Primary Care Provider] - What to do if you have Problems For any increased pain, shortness of breath, bleeding, nausea or vomiting, chest pain, or any unexpected problems, contact your Primary Care Provider. Call [facility] ([phone]) or report to the closest Emergency Room. Call 911 if necessary. 03/30/18 1632 <Electronically signed by Lynsey Hernandez MD> Date Lynsey Hernandez MD Cosigner Signature (If Indicated): Date CC: Shady Sahni MD DISCHARGE INSTRUCTION Observed: 03/30/2018 Status: F Source: [facility]ZEL 2:50 PM [facility] REPOSITORY [facility] Medical Records Department [address] [place] [address] Discharge Instruction 03/30/18 1449 MR#: [id number] Acct: [id number] Name: RUBY COTTER Rep #: [id number] : 1985 32 From: Lynsey Hernandez MD PCP: Shady Sahni MD Status: REG ER ED Disposition - Plan for ED Patient: Disposition: Home or Assisted Living Chief Complaint: Abd Pain Instructions: ED Cyst Ovarian Prescriptions: Hydrocodone Bitart/Apap 5-325 [Denver 5MG-325MG] 1 tablet PO Q6H PRN PRN 3 Days #6 tablet PRN Reason: Pain Referrals: Shady Sahni MD [Primary Care Provider] - Additional Instructions: Follow-up with TIME STUDY STATISTICIAN next week as scheduled. What to do if you have Problems For any increased pain, shortness of breath, bleeding, nausea or vomiting, chest pain, or any unexpected problems, contact your Primary Care Provider. Call [facility] ([phone]) or report to the closest Emergency Room. Call 911 if necessary. 03/30/18 1450 <Electronically signed by Lynsey Hernandez MD> Date Lynsey Hernandez MD Cosigner Signature (If Indicated): Date CC: Shady Sahni MD CBC W/DIFF, AUTOMATED Collected: 03/30/2018 Status: F Source: [facility] 12:44 PM [facility] REPOSITORY TYPE CODE TESTS RESULT OUT OF RANGE REFERENCE UNITS LAB L100.1000 4.4-11.0 K/mm3 Normal WBC 5.8 LAB L100.1200 4.2-5.4 M/mm3 Low RBC 3.96 LAB L100.1300 12.0-15.0 g/dl Normal HGB 12.9 LAB L100.1400 37-47 % Normal HCT 38.7 LAB L100.1500 81-99 fL Normal MCV 97.7 LAB L100.1600 27.0-32.0 pg High MCH 32.6 LAB L100.1700 32-36 g/gl Normal MCHC 33.3 LAB L100.1810 11.6-14.6 % Normal RDW CV 12.7 LAB L100.1820 35.1-43.9 fl High RDW SD 45.6 LAB L100.1900 150-450 K/mm3 Normal PLT 251 LAB L100.2000 6.2-12.0 fl Normal MPV 9.0 LAB L100.2100 47-70 % Normal NEUT% 58.0 LAB L100.2200 19-41 % Normal LY% 29.9 LAB L100.2300 0-10 % Normal MONO% 8.8 LAB L100.2400 0-5 % Normal EO% 2.8 LAB L100.2500 0-1 % Normal BASO% 0.5 LAB L100.2550 0.0-0.9 % Normal IM GRAN % 0.000 Result Comment: IG% - Immature Granulocytes (promyelocytes, myelocytes and metamyelocytes) > 1% indicates that a LEFT SHIFT is Present. LAB L100.2620 2.0-7.7 X10 3/uL Normal Absolute Neut 3.4 LAB L100.2720 0.83-4.51 X10 3/ul Normal Absolute Lymph 1.73 Performed By: #### L100.0100 #### [facility] [address] [place], [place], [address] BASIC METABOLIC Collected: 03/30/2018 Status: F Source: [facility] PROFILE ([facility]) 12:44 PM [facility] REPOSITORY TYPE CODE TESTS RESULT OUT OF RANGE REFERENCE UNITS LAB L501.0100 74-106 mg/dL Normal GLU 89 Result Comment: Please note revised GLUCOSE reference range effective 2017. LAB L501.1000 7-18 mg/dL Normal BUN 11 LAB L501.1100 0.55-1.02 mg/dL Normal CREAT,SERUM 0.80 Result Comment: The validity of the calculated GFR AND GFRAA in patients over 70 years has not been determined. Clinical correlation is essential. LAB L501.1110 >60 mL/min Normal EST GFR 88 Result Comment: Non- GFR Calc LAB L501.1115 >60 mL/min Normal EST GFR - AA 107 Result Comment: GFR Calc LAB L501.1255 ml/min Normal Estimated CRCL 79.85 LAB L501.1300 10-20 RATIO Normal BUN/CRE 13.8 LAB L501.2200 8.5-10 mg/dL Low .1 CA 8.4 LAB L501.5300 136-14 mmol/L Normal 5 NA 141 LAB L501.5600 3.5-5. mmol/L Normal 1 K 3.8 LAB L501.5900 98-107 mmol/L High CL 108 LAB L501.6100 21.0-3 mmol/L Normal 2.0 CO2 25.0 LAB L501.6200 5-15 Normal GAP 8 Performed By: #### L500.2500 #### [facility] [address] [place], [address] URINALYSIS, COMPLETE Collected: 03/30/2018 Status: F Source: [place]EL 12:37 PM [facility] REPOSITORY Order Comment: Order Date: 03/30/18 Has pt arrived? Y How was Urine Obtained? CLEAN CATCH TYPE CODE TESTS RESULT OUT OF RANGE REFERENCE UNITS LAB L400.3000 Yellow COLOR Normal Yellow LAB L400.3050 Clear Normal CLARITY Clear LAB L400.3200 Normal mg/dl Normal GLUCOSE, UR Normal LAB L400.3300 Negative mg/dL Normal BILIRUBIN URINE Negative LAB L400.3400 Negative mg/dl Normal KETONE UR Negative LAB L400.3465 1.002-1.030 Normal SP.GR. DIPSTX 1.010 LAB L400.3550 5.0 - 8.0 pH UR Normal 8.0 LAB L400.3600 Negative mg/dl PROT Normal DIPSTX Negative LAB L400.3700 Normal mg/dl Normal UROBILI Normal LAB L400.3750 Negative Normal NITRITE UR Negative LAB L400.3780 Negative /ul Normal OCCULT BLOOD-UR Negative LAB L400.3800 Negative /ul LEUK Normal ESTERASE Negative LAB L400.4050 0-5 /hpf WBC 0 Normal SEEN LAB L400.4100 0-5 /hpf 0 Normal RBC-UA SEEN LAB L400.4150 5-10 /hpf SQUAM Normal EPI 0-5 SEEN LAB L400.4300 None Seen /hpf 0 Normal BACTERIA SEEN LAB L400.4350 <or=2+ /hpf 0 Normal MUCUS, URINE SEEN Performed By: #### L400.0001 #### [facility] [address] [place], [address] TRANSVAGINAL Observed: 03/30/2018 Status: F Source: FAITH NON- 12:25 PM [facility] REPOSITORY [facility] Imaging Services [address] [place] [address] Transvaginal Non- MR#: [id number] Acct: [id number] Name: RUBY COTTER Rep #: [id number] : 1985 F 32 From: Gerson Milton MD PCP: Shady Sahni MD Status: REG ER Study: Transvaginal Non- Date of Exam: 03/30/18 Exam# [id number] Ordering Dr: Lynsey Hernandez MD STUDY: ULTRASOUND OF THE FEMALE PELVIS - COMPLETE REASON FOR EXAM: Female, 32 years old. Pelvic pain, history of partial hysterectomy LMP: Unknown. TECHNIQUE: Transvaginal TECHNICAL QUALITY: Adequate. COMPARISON: 03/25/2018 FINDINGS: The uterus was previously removed. Previously described right ovarian cyst has resolved. The right ovary is visualized. The right ovary measures 3.3 x 1.8 x 1.7 cm. There is no right ovarian cyst or ovarian mass. There is no visualized right adnexal mass or complex lesion. There is normal arterial and normal venous vascularity. The left ovary is visualized. The left ovary measures 2.7 x 2.0 x 1.2 cm. There is no left ovarian cyst or ovarian mass. There is no visualized left adnexal mass or complex lesion. There is normal arterial and normal venous vascularity. There is no fluid in the cul-de-sac. The bladder sonographically normal US/Transvaginal Non- IMPRESSION: No suspicious sonographic findings, previous uterine removal. Electronically Signed: Roe Milton MD at 14:15 EDT , Service support , CC: Lynsey Hernandez MD; Shady Sahni MD Jacquard Plate Maker: Signed EMERGENCY DEPARTMENT Observed: 03/25/2018 Status: F Source: HAZEL SUMMARY 4:06 PM [facility] REPOSITORY [facility] Medical Records Department [address] [place] [address] Emergency Department Summary 03/25/18 0746 MR#: [id number] Acct: [id number] Name: RUBY COTTER Rep #: [id number] : 1985 32 From: Judah Lowe MD PCP: Shady Sahni MD Status: DEP ER - ER Visit Summary Date of Service: 03/25/18 Chief Complaint: [] Sudden onset of right flank pain about an hour ago History of Present Illness: The patient is a 32 F [] history of partial hysterectomy she states she cannot get , indicates she went to bed feeling fine and suddenly began having pain to the right flank that radiated from her back to her lower abdomen on the right. She has had nausea no vomiting normal bowel bladder habits no fever no cough no trauma she has never had this before no history of kidney stones or other elements she points to her right flank is area of pain Physical Examination: [] She is complaining of pain to the right flank head neck chest unremarkable abdomen soft nontender is a vague pain to the right flank rebound guarding or megaly upper lower extremities unremarkable the rest exams unremarkable Test Results: [] Emergency Department Course and Treatment: [] The labs are obtained CT flank pain management Patient studies are generally unremarkable see those reports, the CT showed nothing acute normal appendix no signs of kidney stone what appeared to be a right ovarian cyst, ultrasound recommended, the ultrasound showed the same see those reports the cyst appeared complex Neck eval with the patient she is feeling much better the pain is markedly improved almost resolved she wants to go home I explained she is follow-up with her manager field services next few days return for change in symptoms and she will do so, she will start on Naprosyn and Denver as rescue medicine, and again she is much improved and she agrees with this plan Treatment Plan: [] Disposition: [] Home stable Impression: [] Right flank pain etiology unclear, right ovarian cyst This note was generated with [employer] dictation software. It may contain incorrect words, spelling, and punctuation that were not noted in review of the chart prior to signing ED Disposition - Plan for ED Patient: Chief Complaint: Abd Pain Referrals: Shady Sahni MD [Primary Care Provider] - What to do if you have Problems For any increased pain, shortness of breath, bleeding, nausea or vomiting, chest pain, or any unexpected problems, contact your Primary Care Provider. Call [facility] ([phone]) or report to the closest Emergency Room. Call 911 if necessary. 03/25/18 1606 <Electronically signed by Judah Lowe MD> Date Judah Lowe MD Cosigner Signature (If Indicated): Date CC: Shady Sahni MD DISCHARGE INSTRUCTION Observed: 03/25/2018 Status: F Source: [facility]ZEL 10:48 AM [facility] REPOSITORY [facility] Medical Records Department [address] [facility] [place] [address] Discharge Instruction 03/25/18 1047 MR#: [id number] Acct: [id number] Name: CYNDEERUBY Fili Rep #: [id number] : 1985 32 From: Judah Lowe MD PCP: Shady Sahni MD Status: REG ER ED Disposition - Plan for ED Patient: Chief Complaint: Abd Pain Instructions: ED Abdominal Pain Unkn Cause, ED Pelvic Pain UKO Prescriptions: Hydrocodone Bitart/Apap 5-325 [Denver 5MG-325MG] 1 tab PO Q4H PRN PRN 2 Days #10 tab PRN Reason: Pain Naproxen [Naprosyn] 500 mg PO BID PRN #20 tab Referrals: Shady Sahni MD [Primary Care Provider] - What to do if you have Problems For any increased pain, shortness of breath, bleeding, nausea or vomiting, chest pain, or any unexpected problems, contact your Primary Care Provider. Call [facility] ([phone]) or report to the closest Emergency Room. Call 911 if necessary. 03/25/18 1048 <Electronically signed by Judah Lowe MD> Date Judah Lowe MD Cosigner Signature (If Indicated): Date CC: Shady Sahni MD TRANSVAGINAL Observed: 03/25/2018 Status: F Source: HAZEL NON- 8:24 AM [facility] REPOSITORY [facility] Imaging Services [address] [place] [address] Transvaginal Non- MR#: [id number] Acct: [id number] Name: RUBY COTTER Rep #: [id number] : 1985 F 32 From: Patric Hernandez MD PCP: Shady Sahni MD Status: REG ER Study: Transvaginal Non- Date of Exam: 03/25/18 Exam# [id number] Ordering Dr: Judah Lowe MD STUDY: ULTRASOUND OF THE FEMALE PELVIS - COMPLETE REASON FOR EXAM: Female, 32 years old. Right pelvic pain LMP: Unknown. TECHNIQUE: Transvaginal TECHNICAL QUALITY: Adequate. COMPARISON: None. FINDINGS: The patient is status post partial hysterectomy. The uterus is not identified. The right ovary is visualized. The right ovary measures 3.9 x 2.2 x 2.3 cm. There is a complex fracture with increased peripheral flow within it right ovary measuring about 2.1 x 1.7 x 1.3 cm which could represent a corpus luteum cyst or corpus albicans. There is otherwise no visualized right adnexal mass or complex lesion. There is normal arterial and normal venous vascularity. The left ovary is non-visualized. There is no demonstrated left adnexal cyst or mass. There is no fluid in the cul-de-sac. US/Transvaginal Non- IMPRESSION: Complex right ovarian lesion which could represent complex cyst as described above. Follow-up examination is recommended. Status post hysterectomy. Nonvisualization of the left ovary. Electronically Signed: Patric Hernandez MD at 10:13 EDT Tel , Service support , CC: MD Hermila Lowe; Shady Sahni MD Jacquard Plate Maker: Signed URINALYSIS, COMPLETE Collected: 03/25/2018 Status: F Source: FAITH 7:29 AM [facility] REPOSITORY Order Comment: Order Date: 03/25/18 How was Urine Obtained? LINUX ARCHITECT TO SPECIFY TYPE CODE TESTS RESULT OUT OF RANGE REFERENCE UNITS LAB L400.3000 Yellow COLOR Normal Yellow LAB L400.3050 Clear Normal CLARITY Clear LAB L400.3200 Normal mg/dl Normal GLUCOSE, UR Normal LAB L400.3300 Negative mg/dL Normal BILIRUBIN URINE Negative LAB L400.3400 Negative mg/dl Normal KETONE UR Negative LAB L400.3465 1.002-1.030 Normal SP.GR. DIPSTX 1.020 LAB L400.3550 5.0 - 8.0 pH UR Normal 6.5 LAB L400.3600 Negative mg/dl PROT Normal DIPSTX Negative LAB L400.3700 Normal mg/dl Normal UROBILI Normal LAB L400.3750 Negative Normal NITRITE UR Negative LAB L400.3780 Negative /ul Normal OCCULT BLOOD-UR Negative LAB L400.3800 Negative /ul LEUK Normal ESTERASE Negative LAB L400.4050 0-5 /hpf WBC 0 Normal SEEN LAB L400.4100 0-5 /hpf 0 Normal RBC-UA SEEN LAB L400.4150 5-10 /hpf SQUAM Normal EPI 0-5 SEEN LAB L400.4300 None Seen /hpf 0 Normal BACTERIA SEEN LAB L400.4350 <or=2+ /hpf 0 Normal MUCUS, URINE SEEN Performed By: #### L400.0001 #### [facility] [address] [place], [address] ABDOMEN/PELVIS WITHOUT Observed: 03/25/2018 Status: F Source: HAZEL CONT 7:18 AM [facility] REPOSITORY [facility] Imaging Services [address] [place] [address] Abdomen/Pelvis without Cont MR#: [id number] Acct: [id number] Name: RUBY COTTER Rep #: [id number] : 1985 F 32 From: Gerson Milton MD PCP: Shady Sahni MD Status: PRE ER Study: Abdomen/Pelvis without Cont Date of Exam: 03/25/18 Exam# [id number] Ordering Dr: Judah Lowe MD STUDY: CT ABDOMEN AND PELVIS WITHOUT CONTRAST REASON FOR EXAM: Female, 32 years old. Right lower quadrant pain history of 2 C-sections RADIATION DOSAGE (If Supplied By Facility): CTDIvol = ( 7.37 ) mGy, DLP = ( 360.69 ) mGycm TECHNIQUE: Transaxial images were obtained from the dome of the diaphragm to the symphysis pubis without oral contrast, and without intravenous contrast. Sagittal and coronal images were reconstructed. Individualized dose optimization techniques were used for this CT. COMPARISON: None. FINDINGS: The visualized lung bases are unremarkable. The visualized portions of the heart are within normal limits. Normal liver. Normal gallbladder and extrahepatic biliary system. Normal spleen. Normal pancreas. Normal bilateral adrenal glands. Normal right kidney. Normal left kidney. Hyperdensities within the GI tract likely represent ingested medication Normal visualized stomach. Normal small intestine. Retained stool noted in the colon. The appendix is visualized and appears normal. Appendix best seen on coronal recon image 53 Normal abdominal aorta. Normal inferior vena cava. Normal retroperitoneum. Normal urinary bladder. There is a likely right ovarian cyst measuring 3.5 x 2.4 cm on axial image 132 but this would need further evaluation with dedicated pelvic ultrasound. Normal-appearing uterus. No demonstrated free fluid in the dependent pelvis Normal abdominal wall. Normal osseous structures. CT/Abdomen/Pelvis without Cont IMPRESSION: No CT evidence of an acute inflammatory process, normal appendix visualized. No suspicious solid organ abnormality Likely right ovarian cyst, but dedicated pelvic ultrasound would be needed for more thorough evaluation. Electronically Signed: Roe Milton MD at 8:12 EDT , Service support , CC: MD Hermila Lowe; Shady Sahni MD Jacquard Plate Maker: Signed CBC W/DIFF, AUTOMATED Collected: 03/25/2018 Status: F Source: FAITH 6:40 AM [facility] REPOSITORY TYPE CODE TESTS RESULT OUT OF RANGE REFERENCE UNITS LAB L100.1000 4.4-11.0 K/mm3 Normal WBC 6.0 LAB L100.1200 4.2-5.4 M/mm3 Normal RBC 4.30 LAB L100.1300 12.0-15.0 g/dl Normal HGB 13.8 LAB L100.1400 37-47 % Normal HCT 41.8 LAB L100.1500 81-99 fL Normal MCV 97.2 LAB L100.1600 27.0-32.0 pg High MCH 32.1 LAB L100.1700 32-36 g/gl Normal MCHC 33.0 LAB L100.1810 11.6-14.6 % Normal RDW CV 13.0 LAB L100.1820 35.1-43.9 fl High RDW SD 46.2 LAB L100.1900 150-450 K/mm3 Normal PLT 258 LAB L100.2000 6.2-12.0 fl Normal MPV 9.0 LAB L100.2100 47-70 % Low NEUT% 45.8 LAB L100.2200 19-41 % Normal LY% 40.2 LAB L100.2300 0-10 % Normal MONO% 9.3 LAB L100.2400 0-5 % Normal EO% 4.2 LAB L100.2500 0-1 % Normal BASO% 0.5 LAB L100.2550 0.0-0.9 % Normal IM GRAN % 0.000 Result Comment: IG% - Immature Granulocytes (promyelocytes, myelocytes and metamyelocytes) > 1% indicates that a LEFT SHIFT is Present. LAB L100.2620 2.0-7.7 X10 3/uL Normal Absolute Neut 2.8 LAB L100.2720 0.83-4.51 X10 3/ul Normal Absolute Lymph 2.41 Performed By: #### L100.0100 #### [facility] [address] [place], [place], [id number] BASIC METABOLIC Collected: 03/25/2018 Status: F Source: [facility] PROFILE ([facility]) 6:40 AM [facility] REPOSITORY TYPE CODE TESTS RESULT OUT OF RANGE REFERENCE UNITS LAB L501.0100 74-106 mg/dL Normal GLU 95 Result Comment: Please note revised GLUCOSE reference range effective 2017. LAB L501.1000 7-18 mg/dL Normal BUN 14 LAB L501.1100 0.55-1.02 mg/dL Normal CREAT,SERUM 0.77 Result Comment: The validity of the calculated GFR AND GFRAA in patients over 70 years has not been determined. Clinical correlation is essential. LAB L501.1110 >60 mL/min Normal EST GFR 92 Result Comment: Non- GFR Calc LAB L501.1115 >60 mL/min Normal EST GFR - AA 112 Result Comment: GFR Calc LAB L501.1255 ml/min Normal Estimated CRCL 86.77 LAB L501.1300 10-20 RATIO Normal BUN/CRE 18.2 LAB L501.2200 8.5-10 mg/dL Normal .1 CA 8.9 LAB L501.5300 136-14 mmol/L Normal 5 NA 143 LAB L501.5600 3.5-5. mmol/L Normal 1 K 4.3 LAB L501.5900 98-107 mmol/L High CL 110 LAB L501.6100 21.0-3 mmol/L Normal 2.0 CO2 26.0 LAB L501.6200 5-15 Normal GAP 7 Performed By: #### L500.2500 #### [facility] [address] [place], [address] ,SERUM,HCG QUALI. Collected: Status: F Source: FAITH 03/25/2018 6:30 AM [facility] REPOSITORY TYPE CODE TESTS RESULT OUT OF REFERENCE UNITS RANGE LAB L700.7000 0-9 Nonpreg Negative Normal HCGSQUAL NEGATIVE LAB L700.6700 =>Qualitative mIU/mL Normal HCG Qual < 1 triggr Performed By: #### L700.6800 #### [facility] [address] [place], [address] GROUP A STREP BY Collected: 03/02/2018 Status: F Source: [place] PCR 4:00 PM [facility] REPOSITORY TYPE CODE TESTS RESULT OUT OF REFERENCE UNITS RANGE LAB GASSRC Throat Swab GAS Specimen Source LAB PCRGAS Negative for Group A Strep Group A PCR Streptococcus by PCR. Result Comment: This test was developed and its performance characteristics determined by [facility] It has not been cleared or approved by the FDA. -[facility] is regulated under CLIA as qualified to perform high-complexity testing. This test is used for clinical purposes. It should not be regarded as inv estigational or for research. Performed By: #### GASPCR #### [facility] [address] [place], [place] [address] PROGRESS Observed: 03/01/2018 Status: COMPLETED Source: [place] 4:17 PM [facility] REPOSITORY HNO ID: [id number] Author: Courtney Newell (Pa) Service: (none) Author Type: Physician Orthopedic Radiologic Technologist Type: Progress Notes Filed: 03/01/2018 4:27 PM Note Text: Subjective HPI Pt presents with sinus congestion and sore throat x 1 week. She has had clear mucous. No fever or chills. No rash. She is a former smoker quit in September. She does still vape. No nvd or abdominal pain. No ear pain. Review of Systems Constitutional: Negative. HENT: Positive for congestion and sore throat. Eyes: Negative. Respiratory: Negative for cough. Cardiovascular: Negative. Skin: Negative. All other systems reviewed and are negative. PAST MEDICAL HISTORY Diagnosis Date - Anxiety - Depression - Post traumatic stress disorder was seeing psych Current Outpatient Prescriptions: cetirizine (ZYRTEC) 10 mg tablet Take 1 tablet by mouth once daily for 14 days. Disp: 14 tablet Rfl: 0 fluticasone (FLONASE) 50 mcg/actuation nasal spray Use 2 Sprays in each nostril once daily for 7 days. Rinse mouth after use. Disp: 1 Bottle Rfl: 0 No current facility-administered medications for this visit. PAST SURGICAL HISTORY Procedure Laterality Date - DELIVERY ONLY 2005 , low transverse - DELIVERY ONLY 2008 , low transverse - [facility] TUBAL W/ 2008 FAMILY HISTORY Problem Relation Age of Onset - Coronary Artery Disease Paternal Uncle - other (brain tumor [Other]) Father - None Mother Social History Substance Use Topics - Smoking status: Current Every Day Smoker Packs/day: 1.00 Years: 10.00 Types: Cigarettes - Smokeless tobacco: Never Used - Alcohol use No BP 120/70 Pulse 76 Temp 37.4 ?C (99.4 ?F) (Left Tympanic) Resp 16 Wt 70.8 kg (156 lb) LMP 02/21/2014 BMI 27.63 kg/m? Objective Physical Exam Constitutional: She is oriented to person, place, and time and well-developed, well-nourished, and in no distress. HENT: Head: Normocephalic and atraumatic. Right Ear: Tympanic membrane, external ear and ear canal normal. Left Ear: Tympanic membrane, external ear and ear canal normal. Nose: Mucosal edema and rhinorrhea present. Mouth/Throat: Uvula is midline and mucous membranes are normal. Posterior oropharyngeal edema and posterior oropharyngeal erythema present. No oropharyngeal exudate or tonsillar abscesses. Cardiovascular: Normal rate, regular rhythm and normal heart sounds. Pulmonary/Chest: Effort normal and breath sounds normal. Neurological: She is alert and oriented to person, place, and time. Skin: Skin is warm and dry. Nursing note and vitals reviewed. ASSESSMENT/PLAN: 1. Sore throat - ICD9: 462, ICD10: J02.9 (primary diagnosis) - Rapid Strep negative in the office today and Throat culture pending - Discussed supportive care treatment with fluids, rest and analgesia. - The patient should follow up in one week if symptoms persist or worsen - RAPID STREP TEST B/O - GROUP A STREPTOCOCCUS BY PCR 2. Viral URI - ICD9: 465.9, ICD10: J06.9 - Discussed viral etiology and rationale for treatment. - Symptomatic treatment with prn analgesia - Supportive care with fluids and rest Courtney Newell PA-C CNOV Observed: 03/01/2018 Status: COMPLETED Source: [place] 3:15 PM [facility] REPOSITORY Office Visit (UCWSTR) RUBY COTTER ([id number]) 1985 F Date Time Provider Department 03/01/18 3:15 PM COURTNEY NEWELL (JOSE) [facility]WSTR During your visit today, we recorded the following information about you: Temperature Pulse Respiration Blood pressure 99.4 degrees 76/minute 16/minute 120/70 Weight 70.8 kg Courtney Newell PA-C 03/01/2018 4:27 PM Signed Subjective HPI Pt presents with sinus congestion and sore throat x 1 week. She has had clear mucous. No fever or chills. No rash. She is a former smoker quit in September. She does still vape. No nvd or abdominal pain. No ear pain. Review of Systems Constitutional: Negative. HENT: Positive for congestion and sore throat. Eyes: Negative. Respiratory: Negative for cough. Cardiovascular: Negative. Skin: Negative. All other systems reviewed and are negative. PAST MEDICAL HISTORY Diagnosis Date - Anxiety - Depression - Post traumatic stress disorder was seeing psych Current Outpatient Prescriptions: cetirizine (ZYRTEC) 10 mg tablet Take 1 tablet by mouth once daily for 14 days. Disp: 14 tablet Rfl: 0 fluticasone (FLONASE) 50 mcg/actuation nasal spray Use 2 Sprays in each nostril once daily for 7 days. Rinse mouth after use. Disp: 1 Bottle Rfl: 0 No current facility-administered medications for this visit. PAST SURGICAL HISTORY Procedure Laterality Date - DELIVERY ONLY 2005 , low transverse - DELIVERY ONLY 2008 , low transverse - PCHG TUBAL W/ 2008 FAMILY HISTORY Problem Relation Age of Onset - Coronary Artery Disease Paternal Uncle - other (brain tumor [Other]) Father - None Mother Social History Substance Use Topics - Smoking status: Current Every Day Smoker Packs/day: 1.00 Years: 10.00 Types: Cigarettes - Smokeless tobacco: Never Used - Alcohol use No BP 120/70 Pulse 76 Temp 37.4 ?C (99.4 ?F) (Left Tympanic) Resp 16 Wt 70.8 kg (156 lb) LMP 02/21/2014 BMI 27.63 kg/m? Objective Physical Exam Constitutional: She is oriented to person, place, and time and well-developed, well-nourished, and in no distress. HENT: Head: Normocephalic and atraumatic. Right Ear: Tympanic membrane, external ear and ear canal normal. Left Ear: Tympanic membrane, external ear and ear canal normal. Nose: Mucosal edema and rhinorrhea present. Mouth/Throat: Uvula is midline and mucous membranes are normal. Posterior oropharyngeal edema and posterior oropharyngeal erythema present. No oropharyngeal exudate or tonsillar abscesses. Cardiovascular: Normal rate, regular rhythm and normal heart sounds. Pulmonary/Chest: Effort normal and breath sounds normal. Neurological: She is alert and oriented to person, place, and time. Skin: Skin is warm and dry. Nursing note and vitals reviewed. ASSESSMENT/PLAN: 1. Sore throat - ICD9: 462, ICD10: J02.9 (primary diagnosis) - Rapid Strep negative in the office today and Throat culture pending - Discussed supportive care treatment with fluids, rest and analgesia. - The patient should follow up in one week if symptoms persist or worsen - RAPID STREP TEST B/O - GROUP A STREPTOCOCCUS BY PCR 2. Viral URI - ICD9: 465.9, ICD10: J06.9 - Discussed viral etiology and rationale for treatment. - Symptomatic treatment with prn analgesia - Supportive care with fluids and rest Courtney Newell PA-C Referring Provider: SELF [200] Allergies As of Date: 03/01/2018 (No Known Allergies) Date Reviewed: 03/01/2018 Reviewed by: Taylor Jimenez Ma - Fully Assessed Reason for Visit: Sore Throat [200] Primary Visit Diagnosis:Sore throat [J02.9] Other Visit Diagnosis:Viral URI [J06.9] Order(s):RAPID STREP TEST B/O [[id number]] Order #: [id number] GROUP A STREPTOCOCCUS BY PCR [SQGASPCR] Order #: [id number] cetirizine (ZYRTEC) 10 mg tabletTake 1 tablet by mouth once daily for 14 days.Disp: 14 tabletRfl: 0 fluticasone (FLONASE) 50 mcg/actuation nasal sprayUse 2 Sprays in each nostril once daily for 7 days. Rinse mouth after use.Disp: 1 BottleRfl: 0 Prescriptions as of 03/01/2018 Sig: CETIRIZINE 10 MG TABLET Take 1 tablet by mouth once d* FLUTICASONE 50 MCG/ACTUATION * Use 2 Sprays in each nostril * Problem List As Of Date 03/01/2018 Noted Resolved PTSD (post-traumatic stress disorder) [F43.10] INVALID FOR* Depression [F32.9] INVALID FOR* Anxiety [F41.9] INVALID FOR* Chronic headaches [R51] INVALID FOR* Prescriptions ordered this encounter Disp Refills Start End CETIRIZINE 10 MG TABLET 14 t* 0 03/01/2018 03/15/2018 Route: ORAL Sig: Take 1 tablet by mouth once daily for 14 days. FLUTICASONE 50 MCG/ACTUATION NASAL S* 1 Larry* 0 03/01/2018 03/08/2018 Route: EACH NOSTRIL Sig: Use 2 Sprays in each nostril once daily for 7 days. Rinse mouth after use. Encounter Status:Closed by COURTNEY NEWELL PA-C on 03/01/18 CNNURSE Observed: 02/13/2018 Status: COMPLETED Source: [place] 1:15 PM [facility] REPOSITORY Nurse Visit (FAMPWS) RUBY COTTER ([id number]) 1985 F Date Time Provider Department 02/13/18 1:15 PM DC NURSE FAMPWS During your visit today, we recorded the following information about you: Violeta Yeboah LPN 02/13/2018 12:49 PM Signed Patient presents for B-12 injection. Denies any problems at this time. Tolerated injection well. Violeta Yeboah LPN Referring Provider: SHADY SAHNI [[id number]] Allergies As of Date: 02/13/2018 (No Known Allergies) Date Reviewed: 06/29/2017 Reviewed by: Dede Lam [employer] Receiving Clerk - Fully Assessed Reason for Visit: Imm/Inj [58] Primary Visit Diagnosis:Need for vaccination [Z23] Problem List As Of Date 02/13/2018 Noted Resolved PTSD (post-traumatic stress disorder) [F43.10] INVALID FOR* Depression [F32.9] INVALID FOR* Anxiety [F41.9] INVALID FOR* Chronic headaches [R51] INVALID FOR* Encounter Status:Closed by VIOLETA YEBOAH LPN on 02/13/18 PROGRESS Observed: 02/13/2018 Status: COMPLETED Source: [place] 12:48 PM [facility] [place] REPOSIT[facility] ID: [id number] Author: Violeta Yeboah LPN Service: (none) Author Type: (none) Type: Progress Notes Filed: 02/13/2018 12:49 PM Note Text: Patient presents for B-12 injection. Denies any problems at this time. Tolerated injection well. Violeta Yeboah LPN EMERGENCY DEPARTMENT Observed: 02/02/2018 Status: F Source: [facility] 4:27 PM [facility] REPOSITORY [facility] Medical Records Department [address] [place] [id number] Emergency Department Summary 02/01/18 1014 MR#: [id number] Acct: [id number] Name: RUBY COTTER Rep #: [id number] : 1985 32 From: Juan Pablo Tee MD PCP: Shady Sahni MD Status: DEP ER - ER Visit Summary Date of Service: 02/01/18 Chief Complaint: Headache History of Present Illness: The patient is a [address] Sahni. She reports that she has a headache that began this morning is gradually gotten worse. Last headache like this was approximately 2 months ago. Is a sharp pain that is frontal and over both temples. Is 10 out of 10 severity. It is worsened by light. She denies any relief with Midol or ibuprofen. She has been nauseated, but has not vomited. No fever. No recent injury. No numbness or weakness. Physical Examination: Vitals: Stable. Afebrile. General: Well-nourished and well-developed. Head: Normocephalic atraumatic. Neck: Supple, no lymphadenopathy. No JVD. Nontender. Cardiovascular: Regular rate and rhythm. No murmurs. Respiratory: No respiratory distress. Clear to auscultation bilaterally. Abdominal: Soft, nontender, nondistended, normal bowel sounds. No guarding, rebound, or peritoneal signs. Back: Nontender. Extremities: Nontender, no edema. Skin: Normal color, no rash. Neurologic: Alert and oriented 3. Cranial nerves II through XII are intact. Normal strength and sensation. Psych: Normal affect. Emergency Department Course and Treatment: Patient had an IV placed. She was given Toradol, Benadryl, and Compazine IV. She has had significant improvement. Treatment Plan: Patient will be discharged instructions follow- up Dr. Sahni in 1-2 days if not improving. Return to the emergency department for any worsening symptoms. Disposition: To home in improved and stable condition. Impression: 1. Migraine headache. This note was generated with [employer] dictation software. It may contain incorrect words, spelling, and punctuation that were not noted in review of the chart prior to signing ED Disposition - Plan for ED Patient: Chief Complaint: Headache Instructions: ED Headache Migraine Referrals: Shady Sahni MD [Primary Care Provider] - 1-2 Days if not improving What to do if you have Problems For any increased pain, shortness of breath, bleeding, nausea or vomiting, chest pain, or any unexpected problems, contact your Primary Care Provider. Call [facility] ([phone]) or report to the closest Emergency Room. Call 911 if necessary. 02/02/18 7735 <Electronically signed by Juan Pablo Tee MD> Date Juan Pablo Tee MD Cosigner Signature (If Indicated): Date CC: Shady Sahni MD PROGRESS Observed: 01/26/2018 Status: COMPLETED Source: [place] 1:35 PM [facility] [place] REPOSITORY [facility] ID: [id number] Author: Violeta Yeboah LPN Service: (none) Author Type: (none) Type: Progress Notes Filed: 01/26/2018 1:37 PM Note Text: Patient presents for PPD read only. Denies any problems at this time. Violeta Yeboah LPN CNNURSE Observed: 01/26/2018 Status: COMPLETED Source: [place] 1:30 PM [facility] REPOSITORY Nurse Visit (FAMPWS) RUBY COTTER ([id number]) 1985 F Date Time Provider Department 01/26/18 1:30 PM [facility] During your visit today, we recorded the following information about you: Violeta Yeboah LPN 01/26/2018 1:37 PM Signed Patient presents for PPD read only. Denies any problems at this time. Violeta Yeboah LPN Referring Provider: SHADY SAHNI [[id number]] Allergies As of Date: 01/26/2018 (No Known Allergies) Date Reviewed: 06/29/2017 Reviewed by: Dede Lam [facility] - Fully Assessed Reason for Visit: PPD Read [3594] Primary Visit Diagnosis:Screening examination for pulmonary tuberculosis [Z11.1] Problem List As Of Date 01/26/2018 Noted Resolved PTSD (post-traumatic stress disorder) [F43.10] INVALID FOR* Depression [F32.9] INVALID FOR* Anxiety [F41.9] INVALID FOR* Chronic headaches [R51] INVALID FOR* Encounter Status:Closed by VIOLETA YEBOAH LPN on 01/26/18 CNNURSE Observed: 01/23/2018 Status: COMPLETED Source: [place] 3:00 PM [facility] REPOSITORY Nurse Visit (FAMPWS) RUBY COTTER ([id number]) 1985 F Date Time Provider Department 01/23/18 3:00 PM DC NURSE [place] During your visit today, we recorded the following information about you: Violeta Yeboah LPN 01/23/2018 2:51 PM Signed Patient presents for PPD administration only. Denies any problems at this time. Tolerated injection well. Violeta Yeboah LPN Referring Provider: SHADY SAHNI [[id number]] Allergies As of Date: 01/23/2018 (No Known Allergies) Date Reviewed: 06/29/2017 Reviewed by: Dede Lam Warehouse Receiving Clerk - Fully Assessed Reason for Visit: Imm/Inj [58] Primary Visit Diagnosis:Screening examination for pulmonary tuberculosis [Z11.1] Problem List As Of Date 01/23/2018 Noted Resolved PTSD (post-traumatic stress disorder) [F43.10] INVALID FOR* Depression [F32.9] INVALID FOR* Anxiety [F41.9] INVALID FOR* Chronic headaches [R51] INVALID FOR* Encounter Status:Closed by VIOLETA YEBOAH LPN on 01/23/18 PROGRESS Observed: 01/23/2018 Status: COMPLETED Source: [place] 2:50 PM [facility] REPOSITORY [facility] ID: [id number] Author: Violeta Yeboah LPN Service: (none) Author Type: (none) Type: Progress Notes Filed: 01/23/2018 2:51 PM Note Text: Patient presents for PPD administration only. Denies any problems at this time. Tolerated injection well. Violeta Yeboah LPN CNNURSE Observed: 01/13/2018 Status: COMPLETED Source: [place] 2:15 PM [facility] REPOSITORY Nurse Visit (FAMPWS) RUBY COTTER ([id number]) 1985 F Date Time Provider Department 01/13/18 2:15 PM DC NURSE [place] During your visit today, we recorded the following information about you: Violeta Yeboah LPN 01/13/2018 2:14 PM Signed Patient presents for PPD read only. Denies any problems at this time. Violeta Yeboah LPN Referring Provider: SHADY SAHNI [[id number]] Allergies As of Date: 01/13/2018 (No Known Allergies) Date Reviewed: 06/29/2017 Reviewed by: Dede Lam Cma - Fully Assessed Reason for Visit: PPD Read [3594] Primary Visit Diagnosis:Screening examination for pulmonary tuberculosis [Z11.1] Problem List As Of Date 01/13/2018 Noted Resolved PTSD (post-traumatic stress disorder) [F43.10] INVALID FOR* Depression [F32.9] INVALID FOR* Anxiety [F41.9] INVALID FOR* Chronic headaches [R51] INVALID FOR* Encounter Status:Closed by VIOLETA YEBOAH LPN on 01/13/18 PROGRESS Observed: 01/13/2018 Status: COMPLETED Source: [place] 2:09 PM [facility] REPOSITORY [facility] ID: [id number] Author: Violeta Yeboah LPN Service: (none) Author Type: (none) Type: Progress Notes Filed: 01/13/2018 2:14 PM Note Text: Patient presents for PPD read only. Denies any problems at this time. Violeta Yeboah LPN CNNURSE Observed: 01/11/2018 Status: COMPLETED Source: [place] 2:00 PM [facility] REPOSITORY Nurse Visit (GAET[place]O) RUBY COTTER ([id number]) 1985 F Date Time Provider Department 01/11/18 2:00 PM DC NURSE VIKKIPWS During your visit today, we recorded the following information about you: Violeta Yeboah LPN 01/11/2018 2:17 PM Signed Patient presents for TDaP, Hepatitis B, and PPD administrations. Denies any problems at this time. Tolerated injections well. Violeta Yeboah LPN Referring Provider: SHADY SAHNI [[id number]] Allergies As of Date: 01/11/2018 (No Known Allergies) Date Reviewed: 06/29/2017 Reviewed by: Dede Lam Warehouse Receiving Clerk - Fully Assessed Reason for Visit: Imm/Inj [58] Visit Diagnoses:Need for vaccination [Z23] Screening examination for pulmonary tuberculosis [Z11.1] Problem List As Of Date 01/11/2018 Noted Resolved PTSD (post-traumatic stress disorder) [F43.10] INVALID FOR* Depression [F32.9] INVALID FOR* Anxiety [F41.9] INVALID FOR* Chronic headaches [R51] INVALID FOR* Encounter Status:Closed by VIOLETA YEBOAH LPN on 01/11/18 RUBELLA IGG ANTIBODY Collected: 01/11/2018 Status: F Source: [place] 2:00 PM [facility] [place] REPOSITORY TYPE CODE TESTS RESULT OUT OF RANGE REFERENCE UNITS LAB RUBGQL Negative Abnormal Rubella IgG Positive Alert Ab, Qual Result Comment: Sample is considered positive for IgG antibodies to rubella virus. A positive result indicates previous exposure to Rubella virus or vaccination. LAB RUBQNT Index Value Rubella IgG Ab 7.50 Result Comment: Index values are interpreted as follows: Negative specimens <0.90 Equivocol specimens 0.90 to 0.99 Positive specimens >0.99 The magnitude of the measured result is not indicative of the amount of antibody present. Performed By: #### RUBIGG, MUMPSG, MEASLG, VZVG2 #### [facility] [address] [place], [place] [address] MUMPS IGG AB Collected: 01/11/2018 Status: F Source: [place] 2:00 PM [facility] [place] REPOSITORY TYPE CODE TESTS RESULT OUT OF RANGE REFERENCE UNITS LAB MUMPSR Negative Abnormal Alert Mumps Positive IgG, Qual Result Comment: Presence of detectable mumps virus IgG antibodies. A positive result generally indicates past exposure to mumps virus or previous vaccination. LAB MUMS AU/mL Mumps IgG Ab 15.7 Result Comment: AU/mL Values interpreted as follows: Negative Specimens <9.0 Equivocal specimens 9.0 to 10.9 Positive specimens >10.9 The magnitude of the measured result, above the cutoff, is not indicative of the amount of antibody present. Performed By: #### RUBIGG, MUMPSG, MEASLG, VZVG2 #### [facility] [employer] [address] [place] [address] MEASLES IGG ANTIBODY Collected: 01/11/2018 Status: F Source: [place] 2:00 PM [facility] REPOSITORY TYPE CODE TESTS RESULT OUT OF RANGE REFERENCE UNITS LAB MEASQL Negative Abnormal Measles IgG Positive Alert Ab, Qual Result Comment: Presence of detectable measles virus IgG antibodies. A positive result generally indicates exposure to measles virus or previous vaccination. LAB MEASG AU/mL Measles IgG Antibody 238.0 Result Comment: AU/mL Value interpreted as follows: Negative specimens <25.0 Equivocal specimens 25.0 to 29.9 Positive specimens >29.9 The magnitude of the measured result, above the cutoff, is not indicative of the amount of antibody present. Performed By: #### RUBIGG, MUMPSG, MEASLG, VZVG2 #### [place] [address] [place] [address] VARICELLA ZOSTER IGG Collected: 01/11/2018 Status: F Source: [place] 2:00 PM [facility] REPOSITORY TYPE CODE TESTS RESULT OUT OF RANGE REFERENCE UNITS LAB VZVGQL Negative Abnormal V. zoster Positive Alert IgG, Qual Result Comment: Presence of detectable VZV IgG antibodies. A positive result generally indicates exposure to the pathogen or administration of specific immunoglobulins, but is no indication of active infection or stage of disease. LAB VZVG Index Value Varicella Zoster IgG 1700.0 Result Comment: Index Values are Interpreted as Follows: Negative specimens <135.0 Equivocal specimens 135.0 to 164.9 Positive specimens >164.9 The magnitude of the measured result is not indicative of the amount of antibody present. Performed By: #### RUBIGG, MUMPSG, MEASLG, VZVG2 #### [facility] [employer] [facility] [place] [address] PROGRESS Observed: 01/11/2018 Status: COMPLETED Source: [place] 1:52 PM [facility] [place] REPOSITORY O ID: [id number] Author: Violeta Yeboah LPN Service: (none) Author Type: (none) Type: Progress Notes Filed: 01/11/2018 2:17 PM Note Text: Patient presents for TDaP, Hepatitis B, and PPD administrations. Denies any problems at this time. Tolerated injections well. Violeta Yeboah LPN EMERGENCY DEPARTMENT Observed: 11/03/2017 Status: F Source: [place] 2:53 PM [facility] REPOSITORY [facility] Medical Records Department [address] [place] [address] Emergency Department Summary 10/27/17 1712 MR#: [id number] Acct: [id number] Name: RUBY COTTER Rep #: [id number] : 1985 31 From: David Seaman DO PCP: Shady Sahni MD Status: DEP ER - ER Visit Summary Date of Service: 10/27/17 Chief Complaint: Wrist injury History of Present Illness: The patient is a 31 F who states that on Tuesday she hit a wall using the back of her hand.. Today's post trauma day 3. She contains of continued pain in the lateral aspect of the right wrist. It is worse with movement. Physical Examination: Afebrile vital signs are stable Patient is tender palpation over the lateral aspect of the dorsum of the right wrist. Is no obvious deformity. Full range of motion. Neurovascular intact distally. Test Results: X-rays were negative for fracture Emergency Department Course and Treatment: She will use a Velcro wrist splint for comfort. Ibuprofen for pain. Follow-up 10-14 days if not improved. Impression: 1. Right wrist sprain This note was generated with [employer] dictation software. It may contain incorrect words, spelling, and punctuation that were not noted in review of the chart prior to signing ED Disposition - Plan for ED Patient: Disposition: Home or Assisted Living Chief Complaint: Upper Extremity Injury Instructions: ED Sprain Wrist Referrals: Shady Sahni MD [Primary Care Provider] - 10-14 Days if not better What to do if you have Problems For any increased pain, shortness of breath, bleeding, nausea or vomiting, chest pain, or any unexpected problems, contact your Primary Care Provider. Call [facility] ([phone]) or report to the closest Emergency Room. Call 911 if necessary. 11/03/17 6543 <Electronically signed by David Seaman DO> Date David Seaman DO Cosigner Signature (If Indicated): Date CC: Shady Sahni MD WRIST MIN 3 VIEWS Observed: 10/27/2017 Status: F Source: [place] 4:36 PM [facility] REPOSITORY [facility] Imaging Services [address] [place] [address] Wrist min 3 Views MR#: [id number] Acct: [id number] Name: RUBY COTTER Rep #: [id number] : 1985 F 31 From: Gerson Brown MD PCP: Shady Sahni MD Status: PRE ER Study: Wrist min 3 Views Date of Exam: 10/27/17 Exam# [id number] Ordering Dr: David Seaman DO STUDY: X-RAY - RIGHT WRIST REASON FOR EXAM: Female, 31 years old. Punched a wall, wrist pain. TECHNIQUE: 3 view(s) of the wrist were obtained. COMPARISON: None. FINDINGS: Normal visualized distal radius and ulna. Normal radiocarpal articulation. Normal distal radioulnar articulation. Normal carpal bones. Normal carpal articulations. Normal carpometacarpal articulation of the thumb. Normal second through fifth carpometacarpal articulations. Normal visualized metacarpal bones. There is mild soft tissue swelling at the wrist. There is no demonstrated acute fracture. RAD/Wrist min 3 Views IMPRESSION: Mild soft tissue swelling. No acute fracture of the right wrist. Electronically Signed: Roe Brown MD at 17:01 EDT , Service support , CC: David Seaman DO; Shady Sahni MD Jacquard Plate Maker: Signed EMERGENCY DEPARTMENT Observed: 09/30/2017 Status: F Source: [place] 10:48 AM [facility] REPOSITORY [facility] Medical Records Department [address] [facility] [place] [address] Emergency Department Summary 09/30/17 0726 MR#: [id number] Acct: [id number] Name: RUBY COTTER Rep #: [id number] : 1985 31 From: Lynsey Hernandez MD PCP: Shady Sahni MD Status: DEP ER - ER Visit Summary Date of Service: 09/30/17 Chief Complaint: Constipation History of Present Illness: The patient is a 31 F reports difficulty passing stool for the past 2 weeks. Patient states that she is urinating okay. She tried laxatives last week and yesterday without significant improvement. She is still passing occasional gas. She has had no nausea or vomiting. She denies fever but states she has had some chills. Prior surgical history is significant for hysterectomy and prior C-sections. Physical Examination: Vital signs are unremarkable Head neck examination is normal. Heart is regular rate and rhythm. Lung sounds are clear. Abdomen is soft with mild diffuse tenderness palpation. There is no guarding or rebound. Hypoactive bowel sounds are noted throughout. Extremity examination is unremarkable with distal palpable pulses. Test Results: Abdominal x-rays are obtained and reveal moderate fecal material without sign of obstruction. Emergency Department Course and Treatment: Patient be given GoLYTELY for home. She is to follow with her primary care physician. Treatment Plan: [] Disposition: Discharge Impression: Constipation This note was generated with [employer] dictation software. It may contain incorrect words, spelling, and punctuation that were not noted in review of the chart prior to signing ED Disposition - Plan for ED Patient: Chief Complaint: Constipation Referrals: Shady Sahni MD [Primary Care Provider] - What to do if you have Problems For any increased pain, shortness of breath, bleeding, nausea or vomiting, chest pain, or any unexpected problems, contact your Primary Care Provider. Call [facility] ([phone]) or report to the closest Emergency Room. Call 911 if necessary. 09/30/17 1046 <Electronically signed by Lynsey Hernandez MD> Date Lynsey Hernandez MD Cosigner Signature (If Indicated): Date CC: Shady Sahni MD DISCHARGE INSTRUCTION Observed: 09/30/2017 Status: F Source: [place] 8:21 AM [facility] REPOSITORY [facility] Medical Records Department [address] [place] [address] Discharge Instruction 09/30/17819 MR#: [id number] Acct: [id number] Name: RUBY COTTER Rep #: [id number] : 1985 31 From: Lynsey Hernandez MD PCP: Shady Sahni MD Status: REG ER ED Disposition - Plan for ED Patient: Disposition: Home or Assisted Living Chief Complaint: Constipation Instructions: ED Constipation Referrals: Shady Sahni MD [Primary Care Provider] - As Needed What to do if you have Problems For any increased pain, shortness of breath, bleeding, nausea or vomiting, chest pain, or any unexpected problems, contact your Primary Care Provider. Call [facility] ([phone]) or report to the closest Emergency Room. Call 911 if necessary. 09/30/17 08 <Electronically signed by Lynsey Hernandez MD> Date Lynsey Hernandez MD Cosigner Signature (If Indicated): Date CC: Shady Sahni MD ABD INC DECUB Observed: 09/30/2017 Status: F Source: FAITH AND/OR ERECT 7:24 AM [facility] REPOSITORY [facility] Imaging Services [address] [place] [address] Abd Inc Decub and/or Erect MR#: [id number] Acct: [id number] Name: RUBY COTTER Rep #: [id number] : 1985 F 31 From: Ji Bloom MD PCP: Shady Sahni MD Status: REG ER Study: Abd Inc Decub and/or Erect Date of Exam: 09/30/17 Exam# [id number] Ordering Dr: Lynsey Hernandez MD STUDY: X-RAY - ABDOMEN/PELVIS REASON FOR EXAM: Female, 31 years old. Abdominal pain and cramping. TECHNIQUE: AP supine and upright views of the abdomen and pelvis. COMPARISON: None. FINDINGS: Normal visualized lung bases. There is a moderate amount of colonic fecal material. There is no demonstrated free abdominal air. The visualized liver, spleen and kidneys are grossly normal in size and morphology. Normal soft tissue structures. Normal visualized osseous structures. RAD/Abd Inc Decub and/or Erect IMPRESSION: Moderate amount of fecal material is seen in the colon. 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 Nursing Notes: Arianna Marcano Ma 08/22/2017 2:15 PM Signed EYE: Patient c/o pain and redness in left eye since yesterday. It feels like there is something in there scratching her eye. She did wake up to some drainage. No foreign body sensation. No issues with vision. No crusting. No pain of the globe. No fever or chills. No cough or congestion. MEDICATIONS: No current outpatient prescriptions on file. No current facility-administered medications for this visit. 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 REVIEW OF SYSTEMS All other reviewed and negative other than HPI. HEALTH MAINTENANCE: Reviewed health maintenance issues today and recommended the following in detail. TETANUS due on 1996 HPV EVERY 5 YEARS due on 11/22/2015 VITALS: BP 118/64 Pulse 72 Resp 16 LMP 02/21/2014 Last 4 Encounter Wt Readings: Date: Wt: 06/29/2017 66.2 kg (146 lb) 12/31/2016 68.5 kg (151 lb) 05/27/2016 73.5 kg (162 lb) 11/04/2015 83 kg (183 lb) PHYSICAL EXAMINATION: General appearance: Well appearing, alert, in no acute distress, well-hydrated, well nourished. Skin: Skin color, texture, turgor normal, no suspicious rashes or lesions Head: Normocephalic, no masses, lesions, tenderness or abnormalities Eyes: Fundi-grossly normal, red sclera and conjunctiva. perrla Ears: External ears normal, canals clear Lungs: Lungs clear to auscultation. No wheezing, rhonchi, rales ASSESSMENT/PLAN: 1. Bacterial conjunctivitis - ICD9: 372.39, 041.9, ICD10: H10.9 - see medication orders - course and contagiousness issues discussed, including hand washing. - Instructed to call if high fever, development of periorbital redness or swelling, eye pain, visual changes, concerns or if symptoms persist. - SULFACETAMIDE SODIUM 10 % EYE DROPS Shady Sahni MD ALLERGIES ALLERGIES DATE TYPE / CODE NAME / CODE REACTION SEVERITY SOURCE 08/06/2018 Drug No Known Unknown [facility] Allergy/416 Allergies/D80944 [facility] 660617(SNOM 0388(RXNORM) Repository ED CT) Drug NO KNOWN [facility] Class/81475 ALLERGIES Main Index 1003(SNOMED Repository CT) ENCOUNTERS ENCOUNTERS ADMIT/DISCHARGE ACCOUNT ADMITTING ENCOUNTER LOCATION SOURCE NUMBER CLASS 08/06/2018/08/06/19 [id number] Emergency [address] ing:ED Repository 07/25/2018/07/25/19 [id number] Emergency [address] ing:ED Repository 07/04/2018/07/05/20 [id number] Ambulatory [address] Repository 06/29/2018/06/29/20 [id number] Emergency [address] ing:ED Repository 06/28/2018/06/29/20 [id number] Ambulatory [address] Repository 05/22/2018/05/23/20 [id number] Ambulatory [address] Repository 05/15/2018/05/16/20 [id number] Ambulatory [address] Repository 05/04/2018/05/05/20 [id number] Ambulatory [address] Repository 04/07/2018/04/10/20 [id number] Ambulatory [address] Repository 04/07/2018/04/10/20 [id number] Ambulatory [address] Main Index Repository 03/30/2018/03/30/20 [id number] Emergency [place] [facility] ing:ED Repository 03/25/2018/03/25/20 [id number] Emergency [place] [facility] ing:ED Repository 03/01/2018/03/02/20 [id number] Ambulatory [address] Main Index Repository 02/13/2018/02/15/20 [id number] Ambulatory [address] Main Index Repository 02/01/2018/02/02/20 [id number] Emergency [place] [facility] ing:ED Repository 01/26/2018/01/28/20 [id number] Ambulatory [address] Main Index Repository 01/23/2018/01/25/20 [id number] Ambulatory [address] Main Index Repository 01/13/2018/01/14/20 [id number] Ambulatory [address] Main Index Repository 01/11/2018/01/12/20 [id number] Ambulatory [address] Main Index Repository 01/11/2018/01/12/20 [id number] Ambulatory [address] Main Index Repository 10/27/2017/10/28/19 [id number] Emergency [place] ing:ED Repository 09/30/2017/10/01/19 [id number] Emergency [place] ing:ED Repository 08/22/2017/08/22/19 [id number] Ambulatory [address] Repository PAYERS PAYERS ENCOUNTER GUARANTOR PAYER SUBSCRIBER SOURCE 08/06/2018 RUBY LEMA Primary RUBY LEMA [place] [id number] Insurance:[facility]: [facility] 07/19 CHRIS fannie Number: [id number], [place] [id number] Repository 845[address]Kpw: ([phone]) Date:2018-08-06 O [phone] ([phone]) [address]ATTN: [place] [address]DB: 08/06/2018 Secondary NOT GIVENUNK [place] Insurance:SELF PAY [facility] Number: Effective Repository Date:2018-08-06 07/25/2018 RUBY LEMA Primary RUBY LEMA [place] [id number] Insurance:CARESOURCEP STELMARSKIDOB: Community 1/2 SPINMat [place] Number: [id number], [place] [id number] Repository [address]67[address]Qov: ([phone]) Date:2018-07-25P O [phone] () [address]ATTN: [place] [address]EU: 07/25/2018 Secondary NOT GIVENUNK [place] Insurance:SELF PAY [facility] Number: Effective Repository Date:2018-07-25 06/29/2018 RUBY Penn Primary RUBY Penn [place] [id number] Insurance:CARESOURCEP DONNAMONADOB: [facility] 1/2 SPINMat [facility] Number: [id number], [place] [id number] Repository [address]Xfi: ([phone]) Date:2018-06-29P O [phone] () [address]ATTN: [place] [address]LS: 06/29/2018 Secondary NOT GIVENUNK [place] Insurance:SELF PAY [facility] Number: Effective Repository Date:2018-06-29 03/30/2018 RUBY Penn Primary RUBY Penn [place] [id number] Insurance:CARESOURCEP STEODINEDMARDOB: [facility] 1/2 SPINMat [facility] Number: [id number], [place] [id number] Repository [address]Thg: [phone]) Date:2018-03-30P O [phone] () [address]ATTN: [place] [address]JM: 03/30/2018 Secondary NOT GIVENUNK [place] Insurance:SELF PAY [facility] Number: Effective Repository Date:2018-03-30 03/25/2018 RUBY Penn Primary RUBY ePnn [place] [id number] Insurance:CARESOURCEP STELMHENRRYKIDOB: Community 1/2 SPINK fanniey Number: [id number], [place] [id number] Repository [address]Grh: ([phone]) Date:2018-03-25P O [phone] () [address]ATTN: [place] [address]XV: 03/25/2018 Secondary NOT GIVENUNK [place] Insurance:SELF PAY [facility] Number: Effective Repository Date:2018-03-25 02/01/2018 RUBY Penn Primary RUBY [id number] Insurance:CARESOURCEP STEHEATHKIDOB: Community 1/2 HUBER hgigins Number: [id number], [place] [id number] Repository 635[address]Rtj: ([phone]) Date:2018-02-01P O [phone] () [address]ATTN: [place] [address]HY: 02/01/2018 Secondary NOT GIVENUNK [place] Insurance:SELF PAY [facility] Number: Effective Repository Date:2018-02-01 10/27/2017 RUBY Penn Primary RUBY Penn [place] [id number] Insurance:CARESOURCEP DONNAHEATHKIDOB: [facility] SPRUCE [facility] Number: [id number], [place] [id number] Repository [address]Sfg: [phone]) Date:2017-10-27 O [phone] () [address]ATTN: [place] [address]ZA: 10/27/2017 Secondary NOT GIVENUNK [place] Insurance:SELF PAY [facility] Number: Effective Repository Date:2017-10-27 09/30/2017 RUBY Penn Primary RUBY Penn [place] [id number] Insurance:CARESOURCEP STELMHENRRYKIDOB: Community SPRUCE olic Number: [id number], [place] [id number] Repository [address]Rtc: ([phone]) Date:2017-09-30P O [phone] () [address]ATTN: [place] [address]LI: 09/30/2017 Secondary NOT GIVENUNK [place] Insurance:SELF PAY [facility] Effective Repository Date:2017-09-30
== END 2018-06-29 10:07 | disposition home or self-care (01) ==
PROVIDERS: Emergency Provider Emergency Medicine; Family Provider Family Medicine; PCP Family Medicine
DX: J06.9 Acute upper respiratory infection, unspecified (principal); Z72.0 Tobacco use
CPT/HCPCS: 99282

== ENCOUNTER 2018-07-25 17:57 | Emergency (ER) | payer MEDICAID, SELFPAY ==
[2018-07-25 17:58] VITALS: BP 109/54; PULSE 77; RESP 20; TEMP 36.6; O2SAT 100; BMI 30.6
--- NOTE | 2018-07-25 18:46 | RAD_ITS ---
STUDY: X-RAY - THORACIC SPINE REASON FOR EXAM: Female, 32 years old. Pain, TECHNIQUE: 3 view(s) of the thoracic spine were obtained. COMPARISON: And lateral film of the chest October 29, 2015 FINDINGS: There is mild kyphosis. There is no substantial scoliosis. There is persistent multilevel spondylosis. At T9-T10 there is a persistent robust anterior osteophyte. There is no apparent acute loss of height or alignment. There is also degenerative change in the visualized cervical spine C4-C5. Normal disc space heights. The soft tissue structures are unremarkable. RAD/Thoracic Spine 3 Views IMPRESSION: Degenerative change of the thoracic spine. Electronically Signed: Gabriella Blancas MD at 19:50 EST Tel , Service support ,
[2018-07-25] MEDS: Orphenadrine 60 MG/2 ML Ampul IM (19:14)
[2018-07-25] MEDS: Ketorolac 60 MG/2 ML Vial IM (19:14)
--- NOTE | 2018-07-25 20:00 | ED.RN ---
PT HEARD YELLING LOUDLY FROM ROOM, ON PHONE, TEARFUL. TELLS THIS RN SHE IS OK. WILL CONTINUE TO OBSERVE.
--- NOTE | 2018-07-25 21:09 | ED.VISSUMM ---
- ER Visit Summary Date of Service: 07/25/18 Chief Complaint: Back pain History of Present Illness: The patient is a 32 F who presents with midthoracic back pain that is been constant for the past 2 weeks. Patient describes as a pressure. Patient states the pain is worse with sitting standing and flexion of her neck. Patient states nothing seems to help. Patient denies any paresthesias or weakness. Patient denies any radiation of the pain. Patient denies any bowel or bladder changes. Patient denies any saddle anesthesia. Patient denies any trauma or injury. Physical Examination: Vital signs are stable. Patient is afebrile. Patient is in no acute distress. Musculoskeletal exam reveals tenderness and mild spasm over the mid thoracic spine and paraspinal muscles. There is no bony crepitance or step-off. Range of motion was limited in all motions of the thoracic spine secondary to pain. Strength is 5/5 bilaterally upper and lower extremities. There are no sensory deficits noted. The remaining physical exam is within normal limits. Test Results: Due to the midline tenderness, x-rays of the thoracic spine were obtained. There are degenerative changes but no acute fracture. Emergency Department Course and Treatment: Patient was given injections of Toradol and Norflex here. Patient was instructed use ice to the area. Patient was given a prescription for Naprosyn and Flexeril. Patient was instructed to follow-up with her primary care physician in 5-7 days. Patient understood and was agreeable with the plan. All questions were answered. Disposition: Discharge home Impression: Thoracic strain This note was generated with [employer] dictation software. It may contain incorrect words, spelling, and punctuation that were not noted in review of the chart prior to signing ED Disposition - Plan for ED Patient: Disposition: Home or Assisted Living Chief Complaint: Back Diagnosis: Thoracic myofascial strain Instructions: ED Neck Back Pain General Prescriptions: Cyclobenzaprine [Flexeril] 10 mg PO QHS PRN PRN #10 tab PRN Reason: Muscle Spasm Naproxen [Naprosyn] 500 mg PO BID PRN #20 tab Referrals: Shady Sahni MD [Primary Care Provider] -
== END 2018-07-25 21:21 | disposition home or self-care (01) ==
PROVIDERS: Emergency Provider Emergency Medicine; Family Provider Family Medicine; PCP Family Medicine
DX: S29.012A Strain of muscle and tendon of back wall of thorax, initial encounter (principal); R51 Headache; X58.XXXA Exposure to other specified factors, initial encounter; Y93.9 Activity, unspecified; Y92.9 Unspecified place or not applicable; Z72.0 Tobacco use
CPT/HCPCS: 72072; 96372; 99282

== ENCOUNTER 2018-08-06 16:19 | Emergency (ER) | payer MEDICAID, SELFPAY ==
[2018-08-06 16:20] VITALS: BP 134/78; PULSE 90; RESP 17; TEMP 36.4; O2SAT 99; BMI 30.1
--- NOTE | 2018-08-06 16:32 | ED.VISSUMM ---
- ER Visit Summary Date of Service: 08/06/18 Chief Complaint: Headache History of Present Illness: The patient is a 32 F presenting with headache. This started gradually earlier this morning. She tried Advil at home with no relief. She complains of nausea and vomiting. She has light sensitivity. She denies trauma. She has a history of migraines and states this feels similar. She states she typically has one migraine per week. She denies other complaints. Physical Examination: Vitals are stable. Patient is afebrile. Alert no acute distress. HEENT exam is unremarkable. Neck is supple. No meningismus Lungs are clear and equal bilaterally. Heart is regular rate and rhythm. Extremities are unremarkable. Skin is warm and dry. No rash No focal neurologic deficit. Remainder of exam is unremarkable. Emergency Department Course and Treatment: Patient was given Reglan, Benadryl IV. On reevaluation, patient is feeling improved. She is requesting to go home. She will follow-up with her primary care physician. She is advised to return to ED if worsening complaints. Disposition: Discharge home Impression: Headache This note was generated with [employer] dictation software. It may contain incorrect words, spelling, and punctuation that were not noted in review of the chart prior to signing ED Disposition - Plan for ED Patient: Chief Complaint: Headache Instructions: ED Headache Migraine Referrals: Shady Sahni MD [Primary Care Provider] -
[2018-08-06] MEDS: Metoclopramide 10 MG/2 ML Vial 5 MG IV (16:44)
[2018-08-06] MEDS: DiphenhydrAMINE 50 MG/ML Syringe 25 MG IV (16:44)
--- NOTE | 2018-08-06 17:39 | ED.DEP ---
ED Disposition - Plan for ED Patient: Chief Complaint: Headache Instructions: ED Headache Migraine Referrals: Shady Sahni MD [Primary Care Provider] -
[2018-08-06 17:52] VITALS: PULSE 103; RESP 14; O2SAT 99
--- OUTSIDE RECORDS SUMMARY | 2018-10-09 12:04 | XMS RPT_ITS ---
[...] Unavailable ANGELI BELTRAN Referring Unavailable EBONY MAN (HAND SUTURE WINDER) Attending Unavailable JOYCE BOOKER (HAND SUTURE WINDER) Attending Unavailable Mabton, Shady Primary Care Unavailable SchwShahbaz beck Attending Unavailable Mabton, Shady Primary Care Unavailable SchwShahbaz beck Attending Unavailable Mabton, Shady Primary Care Unavailable Lynsey Hernandez Attending Unavailable Mabton, Shady Primary Care Unavailable David Seaman Attending Unavailable Jacqueline, Shady Primary Care Unavailable Juan Pablo Tee Attending Unavailable Jacqueline, Shady Primary Care Unavailable Annia Tariq Attending Unavailable Mabton, Shady Primary Care Unavailable Judah Lowe Attending Unavailable Jacqueline, Shady Primary Care Unavailable Lynsey Hernandez Attending Unavailable PROBLEMS PROBLEMS DATE TYPE CONDITION / CODE ATTENDING STATUS SOURCE 03/30/2018 Unknown N83.209 - Lynsey Hernandez Active Faith Unspecified On License Of [facility] ovarian cyst, Hospital unspecified side Repository / N83.209(ICD-10) 03/25/2018 Unknown R52 - Pain, Jwayyed, Active [place] unspecified / Kishorehabekatalina On License Of [facility] R52(ICD-10) Hospital Repository 01/11/2018 Active Encounter for NA Active [facility] screening for Main [place] other viral Repository diseases / Z11.59(ICD-10) PROCEDURES PROCEDURES No Procedure Records FoundRESULTS RESULTS EMERGENCY DEPARTMENT Observed: 08/06/2018 Status: F Source: [place] SUMMARY 5:48 PM [facility] REPOSITORY [facility] Medical Records Department [address] [place] [address] Emergency Department Summary 08/06/18 1632 MR#: [id number] Acct: [id number] Name: RUBY COTTER TOREY Rep #: [id number] : 1985 32 From: Annia Tariq MD [...] Impression: Headache This note was generated with TradeTools FX dictation software. It may contain incorrect words, [...] your Primary Care Provider. Call [facility] ([phone]) or report to the closest Emergency Room. Call 911 if necessary. 08/06/18 1748 <Electronically signed by Annia Tariq MD> Date Annia Tariq MD Cosigner Signature (If Indicated): Date CC: Shady Sahni MD DISCHARGE INSTRUCTION Observed: 08/06/2018 Status: F Source: [place] 5:39 PM [facility] REPOSITORY [facility] Medical Records Department [address] [place] [address] Discharge Instruction 08/06/181738 MR#: [id number] Acct: [id number] Name: RUBY COTTER TOREY Rep #: [id number] : 1985 32 From: Annia Tariq MD PCP: Shady Sahni MD Status: [facility] ER ED Disposition - Plan for ED Patient: Chief Complaint: Headache Instructions: ED Headache Migraine Referrals: Shady Sahni MD [Primary Care Provider] - What to do if you have Problems For any increased pain, shortness of breath, bleeding, nausea or vomiting, chest pain, or any unexpected problems, contact your Primary Care Provider. Call [facility] ([phone]) or report to the closest Emergency Room. Call 911 if necessary. 08/06/181738 <Electronically signed by Annia Tariq MD> Date Annia Tariq MD Cosigner Signature (If Indicated): Date CC: Shady Sahni MD EMERGENCY DEPARTMENT Observed: 07/26/2018 Status: F Source: [place] SUMMARY 1:54 AM [facility] REPOSITORY [facility] Medical Records Department [address] [place] [address] Emergency Department Summary 07/25/189 MR#: [id number] Acct: [id number] Name: RUBY COTTER TOREY Rep #: [id number] : 1985 32 From: Shahbaz Albert DO PCP: Shady Sahni MD Status: [facility] ER - ER Visit Summary Date of [...] Thoracic strain This note was generated with TradeTools FX dictation software. It may contain incorrect words, [...] your Primary Care Provider. Call [facility] ([phone]) or report to the closest Emergency Room. Call 911 if necessary. 07/26/18 0154 <Electronically signed by Shahbaz Albert DO> Date Shahbaz Albert DO Cosigner Signature (If Indicated): Date CC: Shady Sahni MD THORACIC SPINE 3 Observed: 07/25/2018 Status: F Source: [place] VIEWS 6:47 PM [facility] REPOSITORY [facility] Imaging Services [address] [place] [address] Thoracic Spine 3 Views MR#: [id number] Acct: [id number] Name: RUBY COTTER Rep #: [id number] : 1985 F 32 From: Gabriella Blancas MD PCP: Shady Sahni MD Status: REG ER Study: Thoracic Spine 3 Views Date of Exam: 07/25/18 Exam# [id number] Ordering Dr: Shahbaz Albert DO STUDY: X-RAY [...] CC: Shahbaz Albert DO; Shady Sahni MD Meat 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 GROUP A STREP BY Collected: 07/04/2018 Status: F Source: [place] PCR 11:00 AM [facility] REPOSITORY TYPE CODE TESTS RESULT OUT OF REFERENCE UNITS RANGE LAB GASSRC Throat Swab GAS Specimen Source LAB PCRGAS Negative for Group A Strep Group A PCR Streptococcus by PCR. Result Comment: This test was developed and its performance characteristics determined by [facility]'s [facility] [place] ([facility] It has not been cleared or approved by the FDA. -[facility] is regulated under CLIA as qualified to perform high-complexity testing. This test is used for clinical purposes. It should not be regarded as inv estigational or for research. Performed By: #### GASPCR #### [facility] [address] [address] PROGRESS Observed: 07/04/2018 Status: COMPLETED Source: [place] 10:37 AM [facility] REPOSITORY HNO ID: [id number] Author: Chasidy Montoya) [place] Service: (none) Author [...] nostril once daily. Rinse mouth after use. Nkkgacgufqsmf-Wkcpgqfbhlcir-WT (TYLENOL COLD HEAD CONGEST SEVR) 5-325-200 mg [...] APRN.CNP CNOV Observed: 07/04/2018 Status: COMPLETED Source: [place] 10:15 AM [facility] REPOSITORY Office Visit (WSTR) CYNDEERUBY ([id number]) 1985 F Date Time Provider Department 07/04/18 10:15 AM CHASIDY LUTHER ([facility]) [facility] During your visit today, we recorded the [...] nostril once daily. Rinse mouth after use. Boqhyyokvcfjx-Rqtrjfbdwhwzz-JF (TYLENOL COLD HEAD CONGEST SEVR) 5-325-200 mg [...] Discussed expected course of illness Chasidy Luther APRN.HAND SUTURE WINDER OTITIS MEDIA GENERAL INFORMATION: Otitis media is [...] even if the symptoms go away. 2. Djxt-kme-miixxwq pain medication may be taken or other [...] Allergies) Date Reviewed: 07/04/2018 Reviewed by: Chasidy ([facility]) Homa - Fully Assessed Reason for Visit: Cough [28] Cmt: bilateral ear pain, sore throat on claritin d from ed x 1 week Primary Visit Diagnosis:Sore throat [J02.9] Other Visit Diagnosis:Other acute nonsuppurative otitis media of right ear, recurrence not specified [H65.191] Order(s):GROUP A STREPTOCOCCUS BY PCR [SQGASPCR] Order #: [id number] RAPID STREP TEST B/O [4617028] Order #: [id number] amoxicillin (AMOXIL) 875 mg tabletTake 1 tablet [...] Discussed expected course of illness Chasidy Luther APRN.HAND SUTURE WINDER OTITIS MEDIA GENERAL INFORMATION: Otitis media is [...] even if the symptoms go away. 2. Egsx-hpg-fzefero pain medication may be taken or other [...] 10 days. Medications Discontinued During This Encounter Mgrpstyrpaeam-Uxeiqsdygnqdy-ZQ (TYLE* 30 t* 0 06/28/2018 07/04/2018 Route: ORAL Sig: Take 1 Dose by mouth as directed. Patient not taking: Reported on 07/04/2018 Disc: Reason for discontinue is not on file. Letter Text Chasidy Luther APRN.MANSOOR Urgent Care [address] [facility] [address] Dept: [phone] 07/04/2018 Ruby Penn Colbyjordana [address] 07/19 [facility] [address] To Whom it May Concern: This is to certify that Ruby Penn Colbyjordana was seen at our office for medical care. Ruby may return to work on 07/05/2018. If you have any questions please feel free to call. Sincerely: Chasidy Luther APRN.MANSOOR Encounter Status:Closed by CHASIDY LUTHER on 07/04/18 EMERGENCY DEPARTMENT Observed: 06/29/2018 Status: F Source: [place] SUMMARY 9:44 AM [facility] REPOSITORY [facility] Medical Records Department [address] [place] [address] Emergency Department Summary 06/29/18 0939 MR#: [id number] Acct: [id number] Name: RUBY COTTER Rep #: [id number] : 1985 32 From: Shahbaz Albert DO [...] respiratory infection This note was generated with TradeTools FX dictation software. It may contain incorrect words, [...] your Primary Care Provider. Call [facility] ([phone]) or report to the closest Emergency Room. Call 911 if necessary. 06/29/18 0944 <Electronically signed by Shahbaz Albert DO> Date Shahbaz Albert DO Cosigner Signature (If Indicated): Date CC: Shady Sahni MD PROGRESS Observed: 06/28/2018 Status: COMPLETED Source: [place] 9:44 AM [facility] REPOSITORY HNO ID: [id number] Author: Nicole Castellanos Service: (none) Author Type: [...] nostril once daily. Rinse mouth after use. Ymnxaljosxzej-Jwlqqdszbsijm-MH (TYLENOL COLD HEAD CONGEST SEVR) 5-325-200 mg [...] or sooner if worsening of symptoms - EKCWZXZTGGKWR-MDBRETBNGCFBK-LZAZKCPKBXL 5 MG-325 MG-200 MG TABLET 2. Sore [...] STREP BY Collected: 06/28/2018 Status: F Source: [place] PCR 9:33 AM [facility] REPOSITORY TYPE CODE TESTS RESULT OUT OF REFERENCE UNITS RANGE LAB GASSRC Throat Swab GAS Specimen Source LAB PCRGAS Negative for Group A Strep Group A PCR Streptococcus by PCR. Result Comment: This test was developed and its performance characteristics determined by [facility]'s [facility]ike [facility] [place] ([facility]). It has not been cleared or approved by the FDA. [facility] is regulated under CLIA as qualified to perform high-complexity testing. This test is used for clinical purposes. It should not be regarded as inv estigational or for research. Performed By: #### GASPCR #### [facility] [address] [place], [place] [address] CNOV Observed: 06/28/2018 Status: COMPLETED Source: [place] 8:45 AM [facility] REPOSITORY [facility] CYNDEERUBY ([id number]) 1985 F Date Time Provider Department 06/28/18 8:45 AM NICOLE CASTELLANOS [facility] During your visit today, we recorded the following information about you: Temperature Pulse Respiration Blood pressure 98.7 degrees 74/minute 14/minute 122/80 Weight 77 kg Nicole Castellanos APRN.HAND SUTURE WINDER 06/28/2018 9:46 AM Signed Subjective HPI Pt [...] nostril once daily. Rinse mouth after use. Qnzqtmsvuirhj-Utxayzwatyrim-SO (TYLENOL COLD HEAD CONGEST SEVR) 5-325-200 mg [...] or sooner if worsening of symptoms - XVSXGGQVBSGGZ-MYAZHZKIYYSED-NXFARUPIEOP 5 MG-325 MG-200 MG TABLET 2. Sore [...] both ears [H65.93] Order(s):RAPID STREP TEST B/O [[id number]] Order #: [id number] GROUP A STREPTOCOCCUS BY PCR [SQGASPCR] Order #: [id number] Rtuoarsfuclnf-Ogenfgbbyitfd-WZ (TYLENOL COLD HEAD CONGEST SEVR) 5-325-200 mg [...] Use 2 Sprays in each nostril * YYVZKABZYVPUR-TWBJCMFCBHFEH-K* Take 1 Dose by mouth as direc* Problem List As Of Date 06/28/2018 Noted Resolved PTSD (post-traumatic stress disorder) [F43.10] INVALID FOR* Depression [F32.9] INVALID FOR* Anxiety [F41.9] INVALID FOR* Chronic headaches [R51] INVALID FOR* Prescriptions ordered this encounter Disp Refills Start End KJRTLXWUGBSIU-PBZMSIAPPWFGB-ZHNBTJQH* 30 t* 0 06/28/2018 Route: ORAL Sig: Take 1 Dose by mouth as directed. FLUTICASONE 50 MCG/ACTUATION NASAL S* 1 Larry* 1 06/28/2018 Route: EACH NOSTRIL Sig: Use 2 Sprays in each nostril once daily. Rinse mouth after use. Letter Text Nicole Castellanos APRN.CNP Urgent Care [address] [facility] [address] Dept: [phone] 06/28/2018 Ruby Cotter [address] 07[address] [place] [address] To Whom it May Concern: This is to certify that Ruby Cotter was seen at our office for medical care. If you have any questions please feel free to call. Sincerely: Nicole Castellanos APRN.MANSOOR Encounter Status:Closed by NICOLE CASTELLANOS CNP on 06/28/18 CNOV Observed: 05/22/2018 Status: COMPLETED Source: [place] 9:40 AM [facility] REPOSITORY Office Visit (FAMPWS) RUBY COTTER ([id number]) 1985 F Date Time Provider Department 05/22/18 9:40 AM JOYCE BOOKER ([facility]) FAMPWS During your visit today, we recorded [...] Continues to go to counseling. Goes to [facility] -- goes every 2-3 weeks. Depression evaluation: Sadness: + -- recently treated for a breast infection and reports more emotional while on antibiotic. Sleep: Yes -- getting up earlier for no reason. 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 Has 5 kids in the house (2 [...] 05/22/18 PROGRESS Observed: 05/22/2018 Status: COMPLETED Source: [place] 9:27 AM [facility] REPOSITORY O ID: [id number] Author: Joyce ([place]) Jhony Service: (none) Author [...] Continues to go to counseling. Goes to [facility] -- goes every 2-3 weeks. Depression evaluation: Sadness: + -- recently treated for a breast infection and reports more emotional while on antibiotic. Sleep: Yes -- getting up earlier for no reason. 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 Has 5 kids in the house (2 [...] APRN.CNP CNOV Observed: 05/15/2018 Status: COMPLETED Source: [place] 1:15 PM [facility] REPOSITORY Office Visit (WOOB) CYNDEERUBY Penn ([id number]) 1985 F Date Time Provider Department 05/15/18 [...] surgical history, medications and allergies. Ebony Man, DEBO.HAND SUTURE WINDER Referring Provider: SELF [200] Allergies As of [...] 05/15/18 PROGRESS Observed: 05/15/2018 Status: COMPLETED Source: [place] 1:14 PM [facility] REPOSITORY HNO ID: [id number] Author: Ebony Man Service: (none) Author Type: [...] APRN.MANSOOR PROGRESS Observed: 05/04/2018 Status: COMPLETED Source: [place] 5:09 PM [facility] REPOSITORY HNO ID: [id number] Author: Angeli Beltran Service: (none) Author Type: Physician Type: Progress Notes Filed: 05/04/2018 5:09 PM Note Text: Can you please let the patient know that her pelvic US is normal? The cyst on the right ovary has resolved. The small, simple cyst that is present on the left ovary is normal with ovulation. Thanks! PROGRESS Observed: 04/07/2018 Status: COMPLETED Source: [place] 10:28 AM [facility] REPOSITORY HNO ID: [id number] Author: Shady Sahni Service: (none) Author Type: Physician Type: Progress Notes Filed: 04/07/2018 10:40 AM Note Text: Patient presents with: Anxiety HPI: Patient presents today for office visit for anxiety discussion. Nursing Notes: Arianna Marcano Ma 04/07/2018 10:12 AM Signed ANXIETY: Pt is currently being seen at the [facility], seeing counselor. Was told to come see [...] prn. CAMPBELL Observed: 04/07/2018 Status: COMPLETED Source: [place] 10:20 AM [facility] REPOSITORY [facility]BY [facility] ([id number]) 1985 F Date Time Provider Department 04/07/18 10:20 AM [facility] During your visit today, we recorded the following information about you: Pulse Respiration Blood pressure Weight 76/minute 20/minute 120/76 68.9 kg Arianna Marcano Ma 04/07/2018 10:12 AM Signed ANXIETY: Pt is currently being seen at the [facility], seeing counselor. Was told to come see [...] Pt is currently being seen at the [facility], seeing counselor. Was told to come see [...] Pt is currently being seen at the [facility], seeing counselor. Was told to come see [...] 04/07/18 CNOV Observed: 04/07/2018 Status: COMPLETED Source: [place] 9:00 AM [facility] REPOSITORY Office Visit (WOOB) RUBY COTTER ([id number]) 1985 F Date Time Provider Department 04/07/18 [...] of March. It was a constant pain. [place] like someone was pinching and pulling. No [...] external genitalia normal, normal Bartholin's glands, urethra, Canistota's glands, no vulvar lesions, good vaginal support, [...] Diagnosis:RLQ abdominal pain [R10.31] Order(s):PELVIC US WHI [[id number]] Order #: [id number]: 1 FUTURE PELVIC US WHI [5750928] Order #: [id number]: 1 Problem List As Of Date 04/07/2018 Noted Resolved PTSD (post-traumatic stress disorder) [F43.10] INVALID FOR* Depression [F32.9] INVALID FOR* Anxiety [F41.9] INVALID FOR* Chronic headaches [R51] INVALID FOR* Level of Service: NEW PATIENT VISIT LEVEL 2 [74318] Disposition: Return in about 1 year (around 04/07/2019) for annual exam. Follow-up and Disposition History Recorded Encounter Status:Closed by ANGELI BELTRAN MD on 04/07/18 PROGRESS Observed: 04/07/2018 Status: COMPLETED Source: [place] 8:59 AM [facility] REPOSITORY HNO ID: [id number] Author: Angeli Beltran Service: (none) Author Type: [...] of March. It was a constant pain. [place] like someone was pinching and pulling. No [...] external genitalia normal, normal Bartholin's glands, urethra, Canistota's glands, no vulvar lesions, good vaginal support, [...] EMERGENCY DEPARTMENT Observed: 03/30/2018 Status: F Source: [place] SUMMARY 4:32 PM [facility] REPOSITORY [facility] Medical Records Department [address] [place] [address] Emergency Department Summary 03/30/18 1446 MR#: [id number] Acct: [id number] Name: RUBY COTTER Rep #: [id number] : 1985 32 From: Lynsey Hernandez MD [...] naproxen was this morning. Last dose of [place] was last night. She is an appointment to see her RN LVN next week. Physical Examination: Vital signs unremarkable. [...] given a perception for 6 tabs of [place] only. She is to follow-up with her RN LVN next week. Treatment Plan: [] Disposition: Discharge Impression: Abdominal pain secondary to ruptured ovarian cyst This note was generated with TradeTools FX dictation software. It may contain incorrect words, [...] your Primary Care Provider. Call [facility] ([phone]) or report to the closest Emergency Room. Call 911 if necessary. 03/30/18 1632 <Electronically signed by Lynsey Hernandez MD> Date Lynsey Hernandez MD Cosigner Signature (If Indicated): Date CC: Shady Sahni MD DISCHARGE INSTRUCTION Observed: 03/30/2018 Status: F Source: [place] 2:50 PM [facility] REPOSITORY [facility] Medical Records Department [address] [place] [address] Discharge Instruction 03/30/18 1449 MR#: [id number] Acct: [id number] Name: RUBY COTTER Rep #: [id number] : 1985 32 From: Lynsey Hernandez MD PCP: Shady Sahni MD Status: REG ER ED Disposition - Plan for ED Patient: Disposition: Home or Assisted Living Chief Complaint: Abd Pain Instructions: ED Cyst Ovarian Prescriptions: Hydrocodone Bitart/Apap 5-325 [[place] 5MG-325MG] 1 tablet PO Q6H PRN PRN 3 Days #6 tablet PRN Reason: Pain Referrals: Shady Sahni MD [Primary Care Provider] - Additional Instructions: Follow-up with RN LVN next week as scheduled. What to do if you have Problems For any increased pain, shortness of breath, bleeding, nausea or vomiting, chest pain, or any unexpected problems, contact your Primary Care Provider. Call [facility] ([phone]) or report to the closest Emergency Room. Call 911 if necessary. 03/30/18 1450 <Electronically signed by Lynsey Hernandez MD> Date Lynsey Hernandez MD Cosigner Signature (If Indicated): Date CC: Shady Sahni MD CBC W/DIFF, AUTOMATED Collected: 03/30/2018 Status: F Source: [place] 12:44 PM [facility] REPOSITORY TYPE CODE TESTS RESULT OUT OF [...] Lymph 1.73 Performed By: #### L100.0100 #### [facility] [address] [place], [place], [address] BASIC METABOLIC Collected: 03/30/2018 Status: F Source: [place] PROFILE ([facility]) 12:44 PM [facility] REPOSITORY TYPE CODE TESTS RESULT OUT OF [...] GAP 8 Performed By: #### L500.2500 #### [facility] [address] [place], [address] URINALYSIS, COMPLETE Collected: 03/30/2018 Status: F Source: [place] 12:37 PM [facility] REPOSITORY Order Comment: Order Date: 03/30/18 Has [...] URINE SEEN Performed By: #### L400.0001 #### [facility] [address] [place], [address] TRANSVAGINAL Observed: 03/30/2018 Status: F Source: FAITH NON- 12:25 PM [facility] REPOSITORY [facility] Imaging Services [address] [place] [address] Transvaginal Non- MR#: [id number] Acct: [id number] Name: RUBY COTTER Rep #: [id number] : 1985 F 32 From: Gerson Milton MD PCP: Shady Sahni MD Status: REG ER Study: Transvaginal Non- Date of Exam: 03/30/18 Exam# [id number] Ordering Dr: Lynsey Hernandez MD STUDY: ULTRASOUND [...] CC: Lynsey Hernandez MD; Shady Sahni MD Meat 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 EMERGENCY DEPARTMENT Observed: 03/25/2018 Status: F Source: [place] SUMMARY 4:06 PM [facility] REPOSITORY [facility] Medical Records Department [address] [place] [address] Emergency Department Summary 03/25/18 0746 MR#: [id number] Acct: [id number] Name: RUBY COTTER Rep #: [id number] : 1985 32 From: Judah Lowe MD [...] I explained she is follow-up with her tunnel kiln repairer next few days return for change in symptoms and she will do so, she will start on Naprosyn and [place] as rescue medicine, and again she is much improved and she agrees with this plan Treatment Plan: [] Disposition: [] Home stable Impression: [] Right flank pain etiology unclear, right ovarian cyst This note was generated with [employer] FX dictation software. It may contain incorrect words, [...] problems, contact your Primary Care Provider. Call [facility] ([phone]) or report to the closest Emergency Room. Call 911 if necessary. 03/25/18 1606 <Electronically signed by Judah Lowe MD> Date Judah Lowe MD Cosigner Signature (If Indicated): Date CC: Shady Sahni MD DISCHARGE INSTRUCTION Observed: 03/25/2018 Status: F Source: [place] 10:48 AM [facility] REPOSITORY [facility] Medical Records Department [address] [facility] [place] [address] Discharge Instruction 03/25/18 1047 MR#: [id number] Acct: [id number] Name: CYNDEERUBY Fili Rep #: [id number] : 1985 32 From: Judah Lowe MD PCP: Shady Sahni MD Status: REG ER ED Disposition - Plan for ED Patient: Chief Complaint: Abd Pain Instructions: ED Abdominal Pain Unkn Cause, ED Pelvic Pain UKO Prescriptions: Hydrocodone Bitart/Apap 5-325 [[place] 5MG-325MG] 1 tab PO Q4H PRN PRN 2 Days #10 tab PRN Reason: Pain Naproxen [Naprosyn] 500 mg PO BID PRN #20 tab Referrals: Shady Sahni MD [Primary Care Provider] - What to do if you have Problems For any increased pain, shortness of breath, bleeding, nausea or vomiting, chest pain, or any unexpected problems, contact your Primary Care Provider. Call [facility] ([phone]) or report to the closest Emergency Room. Call 911 if necessary. 03/25/18 1048 <Electronically signed by Judah Lowe MD> Date Judah Lowe MD Cosigner Signature (If Indicated): Date CC: Shady Sahni MD TRANSVAGINAL Observed: 03/25/2018 Status: F Source: [place] NON- 8:24 AM [facility] REPOSITORY [facility] Imaging Services [address] [place] [address] Transvaginal Non- MR#: [id number] Acct: [id number] Name: RUBY COTTER Rep #: [id number] : 1985 F 32 From: Patric Hernandez MD PCP: Shady Sahni MD Status: REG ER Study: Transvaginal Non- Date of Exam: 03/25/18 Exam# [id number] Ordering Dr: Judah Lowe MD STUDY: ULTRASOUND [...] CC: MD Hermila Lowe; Shady Sahni MD Meat 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 URINALYSIS, COMPLETE Collected: 03/25/2018 Status: F Source: [place] 7:29 AM [facility] REPOSITORY Order Comment: Order Date: 03/25/18 How was Urine Obtained? PRECISION AGRONOMIST TO SPECIFY TYPE CODE TESTS RESULT OUT [...] URINE SEEN Performed By: #### L400.0001 #### [facility] [address] [place], [address] ABDOMEN/PELVIS WITHOUT Observed: 03/25/2018 Status: F Source: [place] CONT 7:18 AM [facility] REPOSITORY [facility] Imaging Services [address] [place] [address] Abdomen/Pelvis without Cont MR#: [id number] Acct: [id number] Name: RUBY COTTER Rep #: [id number] : 1985 F 32 From: Gesron Milton MD PCP: Shady Sahni MD Status: PRE ER Study: Abdomen/Pelvis without Cont Date of Exam: 03/25/18 Exam# [id number] Ordering Dr: Judah Lowe MD STUDY: CT [...] CC: MD Hermila Lowe; Shady Sahni MD Meat 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 CBC W/DIFF, AUTOMATED Collected: 03/25/2018 Status: F Source: FAITH 6:40 AM [facility] REPOSITORY TYPE CODE TESTS RESULT OUT OF [...] Lymph 2.41 Performed By: #### L100.0100 #### [facility] [address] [place], [place], [address] BASIC METABOLIC Collected: 03/25/2018 Status: F Source: [place] PROFILE ([facility]) 6:40 AM [facility] REPOSITORY TYPE CODE TESTS RESULT OUT OF [...] GAP 7 Performed By: #### L500.2500 #### [facility] [address] [place], [address] ,SERUM,HCG QUALI. Collected: Status: F Source: FAITH 03/25/2018 6:30 AM [facility] REPOSITORY TYPE CODE TESTS RESULT OUT OF REFERENCE UNITS RANGE LAB L700.7000 0-9 Nonpreg Negative Normal HCGSQUAL NEGATIVE LAB L700.6700 =>Qualitative mIU/mL Normal HCG Qual < 1 triggr Performed By: #### L700.6800 #### [facility] [address] [place], [address] GROUP A STREP BY Collected: 03/02/2018 Status: F Source: [place] PCR 4:00 PM [facility] REPOSITORY TYPE CODE TESTS RESULT OUT OF REFERENCE UNITS RANGE LAB GASSRC Throat Swab GAS Specimen Source LAB PCRGAS Negative for Group A Strep Group A PCR Streptococcus by PCR. Result Comment: This test was developed and its performance characteristics determined by [facility]'s Kike Tanesha [facility] [place] ([facility] It has not been cleared or approved by the FDA. -[facility] is regulated under CLIA as qualified to perform high-complexity testing. This test is used for clinical purposes. It should not be regarded as inv estigational or for research. Performed By: #### GASPCR #### [facility] [address] [place], [place] [address] PROGRESS Observed: 03/01/2018 Status: COMPLETED Source: [place] 4:17 PM [facility] REPOSITORY HNO ID: [id number] Author: Courtney Newell (Pa) Service: (none) Author Type: Physician Show Girl Type: Progress Notes Filed: 03/01/2018 4:27 PM [...] PA-C CNOV Observed: 03/01/2018 Status: COMPLETED Source: [place] 3:15 PM [facility] REPOSITORY Office Visit (UCWSTR) RUBY COTTER ([id number]) 1985 F Date Time Provider Department 03/01/18 [...] Diagnosis:Viral URI [J06.9] Order(s):RAPID STREP TEST B/O [1189693] Order #: [id number] GROUP A STREPTOCOCCUS BY PCR [SQGASPCR] Order #: [id number] cetirizine (ZYRTEC) 10 mg tabletTake 1 tablet [...] 03/01/18 CNNURSE Observed: 02/13/2018 Status: COMPLETED Source: [place] 1:15 PM [facility] REPOSITORY Nurse Visit (FAMPWS) RUBY COTTER ([id number]) 1985 F Date Time Provider Department 02/13/18 1:15 PM OR NURSE FAMPWS During your visit today, we recorded the following information about you: Violeta Yeboah LPN 02/13/2018 12:49 PM Signed Patient presents for B-12 injection. Denies any problems at this time. Tolerated injection well. Violeta Yeboah LPN Referring Provider: SHADY SAHNI [[id number]] Allergies As of Date: 02/13/2018 (No Known Allergies) Date Reviewed: 06/29/2017 Reviewed by: Dede Lam [employer] - Fully Assessed Reason for Visit: Imm/Inj [58] Primary Visit Diagnosis:Need for vaccination [Z23] Problem List As Of Date 02/13/2018 Noted Resolved PTSD (post-traumatic stress disorder) [F43.10] INVALID FOR* Depression [F32.9] INVALID FOR* Anxiety [F41.9] INVALID FOR* Chronic headaches [R51] INVALID FOR* Encounter Status:Closed by VIOLETA YEBOAH LPN on 02/13/18 PROGRESS Observed: 02/13/2018 Status: COMPLETED Source: [place] 12:48 PM [facility] [place] REPOSITORY [facility] ID: [id number] Author: Violeta Yeboah LPN Service: (none) Author Type: (none) Type: Progress Notes Filed: 02/13/2018 12:49 PM Note Text: Patient presents for B-12 injection. Denies any problems at this time. Tolerated injection well. Violeta Yeboah LPN EMERGENCY DEPARTMENT Observed: 02/02/2018 Status: F Source: [facility] 4:27 PM [facility] REPOSITORY [facility] Medical Records Department [address] [place] [address] Emergency Department Summary 02/01/18 1014 MR#: [id number] Acct: [id number] Name: RUBY COTTER Rep #: [id number] : 1985 32 From: Juan Pablo Tee [...] Migraine headache. This note was generated with Trade[employer] FX dictation software. It may contain incorrect words, [...] problems, contact your Primary Care Provider. Call [facility] ([phone]) or report to the closest Emergency Room. Call 911 if necessary. 02/02/18 1976 <Electronically signed by Juan Pablo Tee MD> Date Juan Pablo Tee MD Cosigner Signature (If Indicated): Date CC: Shady Sahni MD PROGRESS Observed: 01/26/2018 Status: COMPLETED Source: [place] 1:35 PM [facility] [place] REPOSITORY HNO ID: [id number] Author: Violeta Yeboah LPN Service: (none) Author Type: (none) Type: Progress Notes Filed: 01/26/2018 1:37 PM Note Text: Patient presents for PPD read only. Denies any problems at this time. Violeta Yeboah LPN CNNURSE Observed: 01/26/2018 Status: COMPLETED Source: [place] 1:30 PM [facility] REPOSITORY Nurse Visit (FAMPWS) RUBY COTTER ([id number]) 1985 F Date Time Provider Department 01/26/18 1:30 [facility] During your visit today, we recorded the following information about you: Violeta Yeboah LPN 01/26/2018 1:37 PM Signed Patient presents for PPD read only. Denies any problems at this time. Violeta Yeboah LPN Referring Provider: SHADY SAHNI [[id number]] Allergies As of Date: 01/26/2018 (No Known Allergies) Date Reviewed: 06/29/2017 Reviewed by: Dede Lam [facility] - Fully Assessed Reason for Visit: PPD Read [3594] Primary Visit Diagnosis:Screening examination for pulmonary tuberculosis [Z11.1] Problem List As Of Date 01/26/2018 Noted Resolved PTSD (post-traumatic stress disorder) [F43.10] INVALID FOR* Depression [F32.9] INVALID FOR* Anxiety [F41.9] INVALID FOR* Chronic headaches [R51] INVALID FOR* Encounter Status:Closed by VIOLETA YEBOAH LPN on 01/26/18 CNNURSE Observed: 01/23/2018 Status: COMPLETED Source: [place] 3:00 PM [facility] REPOSITORY Nurse Visit (FAMPWS) RUBY COTTER ([id number]) 1985 F Date Time Provider Department 01/23/18 3:00 PM OR NURSE GAETANO During your visit today, we recorded the following information about you: Violeta Yeboah LPN 01/23/2018 2:51 PM Signed Patient presents for PPD administration only. Denies any problems at this time. Tolerated injection well. Violeta Yeboah LPN Referring Provider: SHADY SAHNI [[id number]] Allergies As of Date: 01/23/2018 (No Known Allergies) Date Reviewed: 06/29/2017 Reviewed by: Dede Lam [employer] - Fully Assessed Reason for Visit: Imm/Inj [58] Primary Visit Diagnosis:Screening examination for pulmonary tuberculosis [Z11.1] Problem List As Of Date 01/23/2018 Noted Resolved PTSD (post-traumatic stress disorder) [F43.10] INVALID FOR* Depression [F32.9] INVALID FOR* Anxiety [F41.9] INVALID FOR* Chronic headaches [R51] INVALID FOR* Encounter Status:Closed by VIOLETA YEBOAH LPN on 01/23/18 PROGRESS Observed: 01/23/2018 Status: COMPLETED Source: [place] 2:50 PM [facility] REPOSITORY HNO ID: [id number] Author: Violeta Yeboah LPN Service: (none) Author Type: (none) Type: Progress Notes Filed: 01/23/2018 2:51 PM Note Text: Patient presents for PPD administration only. Denies any problems at this time. Tolerated injection well. Violeta Yeboah LPN CNNURSE Observed: 01/13/2018 Status: COMPLETED Source: [place] 2:15 PM [facility] REPOSITORY Nurse Visit (FAMPWS) RUBY COTTER ([id number]) 1985 F Date Time Provider Department 01/13/18 2:15 PM OR NURSE GAETANO During your visit today, we recorded the following information about you: Violeta Yeboah LPN 01/13/2018 2:14 PM Signed Patient presents for PPD read only. Denies any problems at this time. Violeta Yeobah LPN Referring Provider: SHADY SAHNI [[id number]] Allergies As of Date: 01/13/2018 (No Known [...] 01/13/18 PROGRESS Observed: 01/13/2018 Status: COMPLETED Source: [place] 2:09 PM [facility] REPOSITORY HNO ID: [id number] Author: Violeta Yeboah LPN Service: (none) Author Type: (none) Type: Progress Notes Filed: 01/13/2018 2:14 PM Note Text: Patient presents for PPD read only. Denies any problems at this time. Violeta Yeboah LPN CNNURSE Observed: 01/11/2018 Status: COMPLETED Source: [place] 2:00 PM [facility] REPOSITORY Nurse Visit (GAETANO) RUBY COTTER ([id number]) 1985 F Date Time Provider Department 01/11/18 2:00 PM OR NURSE VIKKIPWS During your visit today, we recorded the following information about you: Violeta Yeboah LPN 01/11/2018 2:17 PM Signed Patient presents for TDaP, Hepatitis B, and PPD administrations. Denies any problems at this time. Tolerated injections well. Violeta Yeboah LPN Referring Provider: SHADY SAHNI [[id number]] Allergies As of Date: 01/11/2018 (No Known Allergies) Date Reviewed: 06/29/2017 Reviewed by: Dede Lam [employer] - Fully Assessed Reason for Visit: Imm/Inj [58] Visit Diagnoses:Need for vaccination [Z23] Screening examination for pulmonary tuberculosis [Z11.1] Problem List As Of Date 01/11/2018 Noted Resolved PTSD (post-traumatic stress disorder) [F43.10] INVALID FOR* Depression [F32.9] INVALID FOR* Anxiety [F41.9] INVALID FOR* Chronic headaches [R51] INVALID FOR* Encounter Status:Closed by VIOLETA YEBOAH LPN on 01/11/18 RUBELLA IGG ANTIBODY Collected: 01/11/2018 Status: F Source: [place] 2:00 PM [facility] [place] REPOSITORY TYPE CODE TESTS RESULT OUT OF [...] By: #### RUBIGG, MUMPSG, MEASLG, VZVG2 #### [facility] [address] [place], [place] [address] MUMPS IGG AB Collected: 01/11/2018 Status: F Source: [place] 2:00 PM [facility] [place] REPOSITORY TYPE CODE TESTS RESULT OUT OF [...] By: #### RUBIGG, MUMPSG, MEASLG, VZVG2 #### [facility] [address] [place] [address] MEASLES IGG ANTIBODY Collected: 01/11/2018 Status: F Source: [place] 2:00 PM [facility] REPOSITORY TYPE CODE TESTS RESULT OUT [...] By: #### RUBIGG, MUMPSG, MEASLG, VZVG2 #### [place] [address] [place] [address] VARICELLA ZOSTER IGG Collected: 01/11/2018 Status: F Source: [place] 2:00 PM [facility] REPOSITORY TYPE CODE TESTS RESULT OUT [...] By: #### RUBIGG, MUMPSG, MEASLG, VZVG2 #### [facility] [place] [address] PROGRESS Observed: 01/11/2018 Status: COMPLETED Source: [place] 1:52 PM [facility] [place] REPOSITORY O ID: [id number] Author: Violeta Yeboah LPN Service: (none) Author Type: (none) Type: Progress Notes Filed: 01/11/2018 2:17 PM Note Text: Patient presents for TDaP, Hepatitis B, and PPD administrations. Denies any problems at this time. Tolerated injections well. Violeta Yeboah LPN EMERGENCY DEPARTMENT Observed: 11/03/2017 Status: F Source: [place] SUMMARY 2:53 PM [facility] REPOSITORY [facility] Medical Records Department [address] [place] [address] Emergency Department Summary 10/27/17 1712 MR#: [id number] Acct: [id number] Name: RUBY COTTER Rep #: [id number] : 1985 31 From: David Seaman DO [...] wrist sprain This note was generated with TradeTools FX dictation software. It may contain incorrect words, [...] your Primary Care Provider. Call [facility] ([phone]) or report to the closest Emergency Room. Call 911 if necessary. 11/03/17 4243 <Electronically signed by David Seaman DO> Date David Seaman DO Cosigner Signature (If Indicated): Date CC: Shady Sahni MD WRIST MIN 3 VIEWS Observed: 10/27/2017 Status: F Source: [place]ITH 4:36 PM [facility] REPOSITORY [facility] Imaging Services [address] [place] [address] Wrist min 3 Views MR#: [id number] Acct: [id number] Name: RUBY COTTER Rep #: [id number] : 1985 F 31 From: Gerson Brown MD PCP: Shady Sahni MD Status: PRE ER Study: Wrist min 3 Views Date of Exam: 10/27/17 Exam# [id number] Ordering Dr: David Seaman DO STUDY: X-RAY [...] CC: David Seaman DO; Shady Sahni MD Meat 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 It may contain incorrect words, [...] your Primary Care Provider. Call [facility] ([phone]) or report to the closest Emergency Room. Call 911 if necessary. 09/30/17 1046 <Electronically signed by Lynsey Hernandez MD> Date Lynsey Hernandez MD Cosigner Signature (If Indicated): Date CC: Shady Sahni MD DISCHARGE INSTRUCTION Observed: 09/30/2017 Status: F Source: [place]ITH 8:21 AM [facility] REPOSITORY [facility] Medical Records Department [address] [place] [address] Discharge Instruction 09/30/17819 MR#: [id number] Acct: [id number] Name: RUBY COTTER Rep #: [id number] : 1985 31 From: Lynsey Hernandez MD [...] your Primary Care Provider. Call [facility] ([phone]) or report to the closest Emergency Room. Call 911 if necessary. 09/30/17 08 <Electronically signed by Lynsey Hernandez MD> Date Lynsey Hernandez MD Cosigner Signature (If Indicated): Date CC: Shady Sahni MD ABD INC DECUB Observed: 09/30/2017 Status: F Source: [place]ITH AND/OR ERECT 7:24 AM [facility] REPOSITORY [facility] Imaging Services [address] [place] [address] Abd Inc Decub and/or Erect MR#: [id number] Acct: [id number] Name: RUBY COTTER Rep #: [id number] : 1985 F 31 From: Ji Bloom MD PCP: Shady Sahni MD Status: REG ER Study: Abd Inc Decub and/or Erect Date of Exam: 09/30/17 Exam# [id number] Ordering Dr: Lynsey Hernandez MD STUDY: X-RAY [...] Ji Bloom MD at 8:09 EDT Tel [phone], Service support , CC: Lynsey Hernandez MD; Shady Sahni MD Meat 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 PROGRESS Observed: 08/22/2017 Status: COMPLETED Source: [place] 2:30 PM [facility] [place] REPOSITORY HNO ID: [id number] Author: Shady Sahni Service: (none) Author Type: [...] SEVERITY SOURCE 08/06/2018 Drug No Known Unknown [facility] Allergy/416 Allergies/Z82769 [facility] 943464(SNOM 0388(RXNORM) Repository ED CT) Drug NO KNOWN [facility] Class/03152 ALLERGIES [place] 1003(SNOMED Repository CT) ENCOUNTERS ENCOUNTERS ADMIT/DISCHARGE ACCOUNT ADMITTING ENCOUNTER LOCATION SOURCE NUMBER CLASS 08/06/2018/08/06/19 [id number] Emergency [address] ing:ED Repository 07/25/2018/07/25/19 [id number] Emergency [address] ing:ED Repository 07/04/2018/07/05/20 [id number] Ambulatory [address] Repository 06/29/2018/06/29/20 [id number] Emergency [address] ing:ED Repository 06/28/2018/06/29/20 [id number] Ambulatory [address] Repository 05/22/2018/05/23/20 [id number] Ambulatory [address] Repository 05/15/2018/05/16/20 [id number] Ambulatory [address] Repository 05/04/2018/05/05/20 [id number] Ambulatory [address] Repository 04/07/2018/04/10/20 [id number] Ambulatory [address] Repository 04/07/2018/04/10/20 [id number] Ambulatory [place] [facility] [place] Repository 03/30/2018/03/30/20 [id number] Emergency [place] [facility] ing:ED Repository 03/25/2018/03/25/20 [id number] Emergency [place] [facility] ing:ED Repository 03/01/2018/03/02/20 [id number] Ambulatory [place] [facility] [place] Repository 02/13/2018/02/15/20 [id number] Ambulatory [place] [facility] [place] Repository 02/01/2018/02/02/20 [id number] Emergency [place] [facility] ing:ED Repository 01/26/2018/01/28/20 [id number] Ambulatory [address] [place] Repository 01/23/2018/01/25/20 [id number] Ambulatory [place] [facility] [place] Repository 01/13/2018/01/14/20 [id number] Ambulatory [place] [facility] [place] Repository 01/11/2018/01/12/20 [id number] Ambulatory [place] [facility] [place] Repository 01/11/2018/08/09/19 [id number] Ambulatory [address] [place] Repository 10/27/2017/10/28/19 [id number] Emergency [place] [facility] ing:ED Repository 09/30/2017/10/01/19 [id number] Emergency [place] [facility] ing:ED Repository 08/22/2017/08/22/19 [id number] Ambulatory [address] [place] Repository PAYERS PAYERS ENCOUNTER GUARANTOR PAYER SUBSCRIBER SOURCE 08/06/2018 RUBY LEMA Primary RUBY LEMA [place] [id number] [facility] LUZMA: On License Of [facility] 07/19 CHRIS fannie Number: [id number] [id number] Repository [address]Bml: [phone]) Date:2018-08-06 O [phone] (IK) [address]ATTN: [place] [address]AV: 08/06/2018 Secondary NOT GIVENUNK [place] Insurance:SELF PAY [facility] Number: Effective Repository Date:2018-08-06 07/25/2018 RUBY LEMA Primary RUBY LEMA [place] [id number] Insurance:CARESOURCEP STELMARSKIDOB: Community 1/2 SPINMat [place] Number: [id number], [place] [id number] Repository [address]Rwf: ([phone]) Date:2018-07-25P O [phone] () [address]ATTN: [place] [address]SZ: 07/25/2018 Secondary NOT GIVENUNK [place] Insurance:SELF PAY [facility] Number: Effective Repository Date:2018-07-25 06/29/2018 RUBY Penn Primary RUBY Penn [place] [id number] Insurance:CARESOURCEP DONNAMONADOB: On License Of [facility] 1/2 SPINMat [facility] Number: [id number], [place] [id number] Repository [address]Nct: ([phone]) Date:2018-06-29P O [phone] () [address]ATTN: [place] [address]BB: 06/29/2018 Secondary NOT GIVENUNK [place] Insurance:SELF PAY [facility] Number: Effective Repository Date:2018-06-29 03/30/2018 RUBY Penn Primary RUBY Penn [place] [id number] Insurance:CARESOURCEP STEODINEDMARDOB: On License Of [facility] 1/2 SPINMat [facility] Number: [id number], [place] [id number] Repository [address]Cpc: ([phone]) Date:2018-03-30P O [phone] () [address]ATTN: [place] [address]TK: 03/30/2018 Secondary NOT GIVENUNK [place] Insurance:SELF PAY [facility] Number: Effective Repository Date:2018-03-30 03/25/2018 RUBY Penn Primary RUBY Penn [place] [id number] Insurance:CARESOURCEP STELMHNERRYKIDOB: Community 1/2 SPINK fanniey Number: [id number], [place] [id number] Repository [address]Ixa: ([phone]) Date:2018-03-25P O [phone] () [address]ATTN: [place] [address]DE: 03/25/2018 Secondary NOT GIVENUNK [place] Insurance:SELF PAY [facility] Number: Effective Repository Date:2018-03-25 02/01/2018 RUBY Penn Primary RUBY [id number] Insurance:CARESOURCEP STEHEATHKIDOB: Community 1/2 HUBER [place] Number: [id number], [place] [id number] Repository [address]Fdn: ([phone]) Date:2018-02-01P O [phone] () [address]ATTN: [place] [address]MV: 02/01/2018 Secondary NOT GIVENUNK [place] Insurance:SELF PAY [facility] Number: Effective Repository Date:2018-02-01 10/27/2017 RUBY Penn Primary RUBY Penn [place] [id number] Insurance:CARESOURCEP DONNAHEATHKIDOB: On License Of [facility] SPRUCE [facility] Number: [id number], [place] [id number] Repository [address]Wnq: [phone]) Date:2017-10-27 O [phone] () [address]ATTN: [place] [address]OD: 10/27/2017 Secondary NOT GIVENUNK [place] Insurance:SELF PAY [facility] Number: Effective Repository Date:2017-10-27 09/30/2017 RUBY Penn Primary RUBY Penn Faith [id number] Insurance:CARESOURCEP STELMHENRRYKIDOB: Community SPRUCE olic Number: [id number], [place] [id number] Repository [address]Diq: ([phone]) Date:2017-09-30P O [phone] () [address]ATTN: [place] [address]CN: 09/30/2017 Secondary NOT GIVENUNK [place] Insurance:SELF PAY [facility]: Effective Repository Date:2017-09-30
== END 2018-08-06 17:54 | disposition home or self-care (01) ==
LOC: ED 16:52
PROVIDERS: Emergency Provider Emergency Medicine; Family Provider Family Medicine; PCP Family Medicine
DX: G43.909 Migraine, unspecified, not intractable, without status migrainosus (principal); Z72.0 Tobacco use
CPT/HCPCS: 96374; 96375; 99284; A4216

== ENCOUNTER 2018-10-30 22:24 | Emergency (ER) | payer MEDICAID, SELFPAY ==
[2018-10-30 22:25] VITALS: BP 128/90; PULSE 89; RESP 16; TEMP 36.6; O2SAT 96; BMI 30.8
--- NOTE | 2018-10-30 22:43 | CT_ITS ---
STUDY: CT ABDOMEN AND PELVIS WITH CONTRAST REASON FOR EXAM: Female, 32 years old. 1 small bowel movement. Discomfort. RADIATION DOSAGE (If Supplied By Facility): CTDIvol = ( 13.71 ) mGy, DLP = ( 885.54 ) mGycm TECHNIQUE: Transaxial images were obtained from the dome of the diaphragm to the symphysis pubis without oral contrast. 100ML IV Isovue 370 was administered. Sagittal and coronal images were reconstructed. Individualized dose optimization techniques were used for this CT. COMPARISON: CT of the abdomen and pelvis, March 25, 2018. FINDINGS: The visualized lung bases are unremarkable. The visualized portions of the heart are within normal limits. Normal liver. Normal gallbladder and extrahepatic biliary system. Normal spleen. Normal pancreas. Normal bilateral adrenal glands. Normal right kidney. Normal left kidney. Normal visualized stomach. Normal small intestine. Normal colon. The appendix is visualized and appears normal. Normal abdominal aorta. Normal inferior vena cava. Normal retroperitoneum. Normal urinary bladder. The uterus is absent. There is a retained left ovary containing a 2 cm cyst. The right ovary appears normal. There is no pelvic lymphadenopathy. No free air or free fluid is seen within the peritoneal cavity. Umbilical hernia of omental fat. The abdominal wall is otherwise unremarkable. There are mild degenerative changes of the lumbar spine. CT/Abdomen/Pelvis W IV Cont ONLY IMPRESSION: 1. 2 cm cyst in the retained left ovary. This was not previously noted. 2. No other evidence of abdominal or pelvic abnormality. 3. No other major interval change. Electronically Signed: Gibran Malloy DO at 23:31 EDT Tel [phone], Service support ,
--- NOTE | 2018-10-30 22:45 | ED.DCSUM_ITS ---
- ER Visit Summary Date of Service: 10/30/18 Chief Complaint: Constipation and abdominal pain History of Present Illness: The patient is a 32 F who presents for evaluation of constipation and abdominal pain. Patient states she has not had a bowel movement in 4-5 days. Today she was seen at her primary care office and was given a bottle of mag citrate to drink. She drank half at noon and half at 2 PM. She also tried MiraLAX this morning and Ex-Lax this evening. She states she had a very tiny bowel movement. She is having worsening left lower quadrant abdominal pain. She has associated nausea. No fever, vomiting, diarrhea, chest pain, shortness of breath or urinary symptoms. Patient is status post hysterectomy and has had 2 deliveries. She uses tobacco. Physical Examination: Vital signs: afebrile, hemodynamically stable, no hypoxia on room air General: well nourished, well developed, in no distress, tearful Skin: warm, dry, no rash, no pallor HEENT: normocephalic and atraumatic; PERRL, EOMI, moist mucous membranes Cardiovascular: regular rate and rhythm without murmurs, no peripheral edema, 2+ pulses all distal extremities Respiratory: No increased work of breathing, lungs are clear to auscultation bilaterally, no rales, rhonchi or wheezing Abdominal: Abdomen is soft, tender in the left lower quadrant with hypoactive bowel sounds, no guarding or rebound, no masses, rectal exam shows no hemorrhoids, masses, no stool in the rectal vault MSK: Moves all extremities, no deformities, normal strength Neuro: Awake and alert, oriented ?4. No facial droop, sensation and motor function intact and symmetric Test Results: Abnormal Lab Results 10/30/18 10/30/18 22:55 22:55 WBC 8.3 RBC 4.26 Hgb 13.9 Hct 41.7 MCV 97.9 MCH 32.6 H MCHC 33.3 RDW 12.7 RDW Differential 45.6 H Plt Count 268 MPV 9.0 Immature Gran % (Auto) 0.200 Neut % (Auto) 57.8 Lymph % (Auto) 30.8 [place] % (Auto) 8.9 Eos % (Auto) 1.9 Baso % (Auto) 0.4 Absolute Neuts (auto) 4.8 Absolute Lymphs (auto) 2.55 Total Counted Not Reportable Sodium 139 Potassium 4.0 Chloride 107 Carbon Dioxide 29.0 Anion Gap 3 L BUN 13 Creatinine 0.82 Estim Creat Clear Calc 81.48 Est GFR (MDRD) Af Amer 103 Est GFR (MDRD) Non-Af 85 BUN/Creatinine Ratio 15.8 Glucose 92 Calcium 8.4 L Total Bilirubin 0.50 AST 17 ALT 20 Alkaline Phosphatase 32 L Total Protein 6.7 Albumin 3.9 Globulin 2.8 Albumin/Globulin Ratio 1.4 Clinical Impression(s) from Imaging Studies Abdomen/Pelvis CT 10/30/18 22:43 IMPRESSION: 1. 2 cm cyst in the retained left ovary. This was not previously noted. 2. No other evidence of abdominal or pelvic abnormality. 3. No other major interval change. Electronically Signed: Gibran Malloy DO at 23:31 EDT Tel [phone], Service support , Medications Given Discontinued Medications Sodium Chloride () 1,000 mls @ 1,000 mls/hr IV .Q1H ONE Stop: 10/30/18 23:42 Last Admin: 10/30/18 22:53 Dose: 1,000 mls/hr Ketorolac Tromethamine (Toradol) 15 mg IV X1 ONE Stop: 10/30/18 22:44 Last Admin: 10/30/18 22:53 Dose: 15 mg Ondansetron HCl (Zofran) 4 mg IV X1 ONE Stop: 10/30/18 22:44 Last Admin: 10/30/18 22:53 Dose: 4 mg Emergency Department Course and Treatment: Patient presents complaining of constipation, however based on her history and physical exam, her left lower quadrant abdominal pain is concerning for other possible pathologies other than constipation. Patient does not have any stool noted on examination that would be amenable to disimpaction. Patient was given Toradol, Zofran and IV fluids. She does have a history of C-sections and hysterectomy, thus bowel obstruction is on the differential. Labs showed no leukocytosis, or any derangements on the CMP. CT the abdomen pelvis showed no sign of diverticulitis, colitis, small bowel obstruction, and was remarkable only for a 2 cm left ovarian cyst. Possibility of ovarian torsion was considered, however patient's pain is been constant, not severe, and her pain is more in the upper region of the left lower quadrant rather than in the pelvic region. On reevaluation patient was feeling much better. In my professional opinion at this time, ultrasound is not indicated to evaluate for torsion, as it is an unlikely diagnosis. Patient's tenderness had improved on reevaluation. She was given a prescription for napro xen and Zofran for symptomatic relief at home. Patient discharged in improved condition. Treatment Plan: [] Disposition: [] Impression: Abdominal pain, left ovarian cyst This note was generated with [employer] dictation software. It may contain incorrect words, spelling, and punctuation that were not noted in review of the chart jenna or to signing ED Disposition - Plan for ED Patient: Instructions: ED Cyst Ovarian, ED Abdominal Pain Unkn Cause Prescriptions: Ondansetron [Zofran Odt] 4 mg PO Q8H PRN PRN #10 tab PRN Reason: Nausea Naproxen [Naprosyn] 500 mg PO BID PRN #20 tab Referrals: Shady Sahni MD [Primary Care Provider] - 3-5 Days if not improving Additional Instructions: Please follow-up with your [facility] for further evaluation of your ovarian cysts. Follow-up with your doctor if you continue to have the abdominal pain. Use the medications as prescribed for symptom control. If you have any worsening of your condition or any new concerning symptoms, please return immediately to the emergency department for another evaluation.
[2018-10-30] MEDS: Ondansetron 4 MG/2 ML Vial IV (22:53)
[2018-10-30] MEDS: 0.9% Normal Saline 1,000 ML 1000 ML IV (22:53)
[2018-10-30] MEDS: Ketorolac 30 MG/ML Syringe 15 MG IV (22:53)
[2018-10-30 23:05] LABS: Absolute Lymphocyte Count 2.55 X10^3/ul (0.83-4.51); Absolute Neutrophil Count 4.8 X10^3/uL (2.0-7.7); Basophil# 0.03 X10^3/uL; Basophil% 0.4 % (0-1); Eosinophil# 0.16 X10^3/uL; Eosinophils% 1.9 % (0-5); Hematocrit 41.7 % (37-47); Hemoglobin 13.9 g/dl (12.0-15.0); Lymphocyte # 2.55 X10^3/ul (4.0); Lymphocyte % 30.8 % (19-41); Mean Corp Hgb Conc 33.3 g/gl (32-36); Mean Corpuscular Hgb 32.6 pg (27.0-32.0); Mean Corpuscular Volume 97.9 fL (81-99); Monocyte# 0.74 X10^3/uL; Monocyte% 8.9 % (0-10); Neutrophil # 4.77 X10^3/uL (2.7-7.7); Neutrophil % 57.8 % (47-70); POSITIVE COUNT NO; POSITIVE DIFFERENTIAL NO; POSITIVE MORPHOLOGY NO; Platelet Count 268 K/mm3 (150-450); RBC Distribution Width CV 12.7 % (11.6-14.6); RBC Distribution Width SD 45.6 fl (35.1-43.9); Red Blood Count 4.26 M/mm3 (4.2-5.4); White Blood Count 8.3 K/mm3 (4.4-11.0)
[2018-10-30 23:26] LABS: ALB/GLOB Ratio 1.4 RATIO (0.9-2.4); AST(SGOT) 17 U/L (15-37); Alanine Aminotransfer ALT/SGPT 20 U/L (13-56); Albumin, Serum 3.9 g/dL (3.2-5.0); Alkaline Phosphatase 32 U/L (45-117); Anion Gap 3 (5-15); BUN 13 mg/dL (7-18); BUN/Creat Ratio 15.8 RATIO (10-20); Calcium,Total 8.4 mg/dL (8.5-10.1); Chloride 107 mmol/L (98-107); Creatinine, Serum 0.82 mg/dL (0.55-1.02); EST Glomerular Filtration Rate 85 mL/min (>60); Est Glom Filt Rate - Afr Amer 103 mL/min (>60); Estimated Creatinine Clearance 81.48 ml/min; Globulin 2.8 g/dL (2.2-4.2); Glucose 92 mg/dL (74-106); Protein, Total 6.7 g/dL (6.4-8.2); Sodium Level 139 mmol/L (136-145)
[2018-10-31 00:07] VITALS: BP 122/71; PULSE 71; TEMP -7.7; TEMP 18; O2SAT 99
== END 2018-10-31 00:07 | disposition home or self-care (01) ==
LOC: ED 22:59
PROVIDERS: Emergency Provider Emergency Medicine; Family Provider Family Medicine; PCP Family Medicine
DX: N83.202 Unspecified ovarian cyst, left side (principal); R10.32 Left lower quadrant pain; F17.290 Nicotine dependence, other tobacco product, uncomplicated
CPT/HCPCS: 74177; 80053; 85025; 96361; 96374; 96375; 99283; J7030; Q9967; J2405

== ENCOUNTER 2019-07-02 10:53 | Emergency (ER) | payer SELFPAY ==
[2019-07-02 10:54] VITALS: BP 127/77; PULSE 73; RESP 17; TEMP 36.7; O2SAT 98; BMI 31.5
--- NOTE | 2019-07-02 11:17 | RAD_ITS ---
STUDY: X-RAY CHEST REASON FOR EXAM: Female, 33 years old. Right flank pain. TECHNIQUE: PA and lateral views of the chest. COMPARISON: None. FINDINGS: The lungs are clear and expanded. There is no demonstrated pleural abnormality. Normal size heart. Normal mediastinum and dima. Normal visualized pulmonary arteries. Normal visualized aortic arch and descending thoracic aorta. There are degenerative changes of the visualized thoracic spine. Normal visualized ribs, clavicles, and shoulders. There is no demonstrated abnormality of the visualized soft tissue structures of the upper abdomen. RAD/Chest PA and Lateral IMPRESSION: Normal x-ray examination of the chest. Electronically Signed: Ji Bloom, at 11:39 EST , Service support ,
--- NOTE | 2019-07-02 12:19 | ED.VIS.GEN ---
History of Present Illness Chief Complaint: Cold Sx Informant: Patient Onset: Yesterday Maximum Severity: Mild Narrative: Runny nose sore throat ear pressure harsh cough since yesterday all began suddenly, no flu vaccination, the cough is dry nonproductive she notes when she coughs he sometimes feels pain to the right chest, she also complains of ear pressure right more than left, slight sore throat she is able to eat and drink no nausea or vomiting no abdominal pain, no history of [place] PE or DVT or pneumonia, she indicates she does vape electronic cigarettes and was able to do so today even with these symptoms she has had no complications from vaping these electronic cigarettes and understands the risk of this activity including cardiopulmonary failure Past Medical History - Allergies and Home Meds Allergies/Adverse Reactions: Allergies No Known Allergies Allergy (Verified 07/02/19 10:54) Primary Care Physician: Shady Sahni MD [Primary Care Provider] - Past Medical History: - Smoking Status: Current every day smoker Review of Systems ROS: - He denies General: Denies: Chills, Fever, Sweats Eyes: Denies: Visual changes - bilaterally, Diplopia ENT: Reports: Bilateral ear pain, Rhinorrhea. Denies: Sore throat Cardiovascular: Denies: Chest pain, Palpitations Respiratory: Reports: Cough. Denies: Dyspnea, Dyspnea on exertion Gastrointestinal: Denies: Abdominal pain, Nausea, Vomiting, Diarrhea, Melena, Hematochezia Genitourinary: Denies: Dysuria, Hematuria, Frequency Musculoskeletal: Denies: Back pain, Extremity Pain Skin: Denies: Rash, Wounds Neurological: Denies: Headache, Weakness, Numbness Physical Exam Vital Signs/Narrative: Vital Signs Temp Pulse Resp BP Pulse Ox 07/02/19 10:54 98.1 F 73 17 127/77 H 98 General: Well nourished, Well developed, No Acute Distress Head: Normocephalic, Atraumatic Eyes: Perrl, EOMI ENT: Moist mucous membranes, Nasal congestion Neck: Supple, Nontender Cardiovascular: Regular rate, Regular rhythm, No murmurs Respiratory: No distress, CTA bilaterally, Chest nontender Abdomen: Soft, Nontender, Nondistended, Normal bowel sounds Back: Nontender, Normal Inspection Extremities: Nontender, No edema Skin: Normal color, No rash Neurological: Alert, Oriented x3, Cranial nerves II-XII grossly intact, Normal Strength, Normal Sensation Psychological: Normal affect, Normal Mood Diagnostic/Tx/Re-eval - Medical Decision Making The patient is in no distress her vital signs are normal her nose is congested her throat unremarkable her TMs unremarkable neck very supple unremarkable her lungs are clear nonpalpable pain abdomen soft nontender no back pain she currently has no cough she is upset that she is had to wait in the emergency department for evaluation I explained to her she Her when ED evaluation shortly after her arrival, waiting for x-ray report she is receiving aerosols Toradol Afrin nasal spray chest x-ray is unremarkable she has been treated medicated she is status is stable, I explained to the patient this time she should 1 stop vaping, I explained this can cause cardiopulmonary failure and she will be started on Flonase Proventil inhaler Naprosyn and she should follow with her outpatient providers and return for change in symptoms Home stable Impression final acute URI cough ED Disposition - Plan for ED Patient: Diagnosis: URI (upper respiratory infection) Instructions: BRONCHITIS, No Antibiotic (Adult) Prescriptions: Fluticasone 0.05% [Flonase Nasal [place]] 1 spray NASAL BID #1 bottle Prescription Printed Naproxen [Naprosyn] 500 mg PO BID PRN #20 tab Prescription Printed Albuterol Inhaler [Ventolin Hfa] 1 - 2 puff INHALATION Q4H PRN PRN #1 inhaler PRN Reason: Wheezing Prescription Printed Referrals: Shady Sahni MD [Primary Care Provider] -
[2019-07-02] MEDS: Albuterol 2.5 MG/3 ML VIAL.NEB. INHALATION (12:33)
[2019-07-02 12:34] VITALS: PULSE 64; RESP 20
[2019-07-02 13:00] VITALS: BP 120/80; PULSE 60; RESP 16; O2SAT 98
[2019-07-02] MEDS: Ketorolac 60 MG/2 ML Vial IM (13:06)
[2019-07-02] MEDS: Oxymetazoline 0.05% 1 SPRAY SPRAY.BTL NASAL (13:12)
== END 2019-07-02 13:39 | disposition home or self-care (01) ==
PROVIDERS: Emergency Provider Emergency Medicine; Family Provider Family Medicine; PCP Family Medicine
DX: J06.9 Acute upper respiratory infection, unspecified (principal); F17.290 Nicotine dependence, other tobacco product, uncomplicated
CPT/HCPCS: 71046; 94640; 96372; 99283

== ENCOUNTER → 2020-05-15 17:17 | Outpatient (CLI) | payer OTHER, SELFPAY | PROVIDERS: PCP Family Medicine; Referring Provider Nurse Practitioner Family; Visit Provider Nurse Practitioner Family | DX: Z03.818 Encounter for observation for suspected exposure to other biological agents ruled out (principal) | CPT/HCPCS: 87635; C9803; U0003 ==

== ENCOUNTER 2020-09-16 10:43 | Emergency (ER) | payer OTHER, SELFPAY ==
[2020-09-16 10:43] VITALS: BP 158/107; PULSE 73; PULSE 85; RESP 11; RESP 19; TEMP 37.1; O2SAT 100; BMI 33.5
--- NOTE | 2020-09-16 11:10 | ED.VISSUMM ---
- ER Visit Summary Date of Service: 09/16/20 Chief Complaint: Chest pain but I think I am having anxiety attacks History of Present Illness: The patient is a [address] of weekly anxiety attacks. She states she was supposed to start generic Seroquel but she did not want take medication so she has not she started it as of yet. States today she started an anxiety attack with associated chest pain. She is never had a history of DVT or PE. She has no risk factors for PE. No recent travel, surgery, immobilization. She is not on hormone replacement or control pills. She has no leg pain or swelling. No hemoptysis. No pleuritic pain. She denies being short of breath. She has no cardiac history nor any family history of DVT or PE before the age of 40. Physical Examination: Young female tearful and upset. Vital signs stable afebrile. Pulse ox 100% on room air no signs of hypoxia. She is obviously anxious. HEENT exam unremarkable. Neck nontender no JVD. No lymphadenopathy. Lungs clear to auscultation bilaterally. Heart regular rhythm rate about 70 no murmur. Chest wall nontender. Soft nontender normal bowel sounds no peritoneal signs. Patient moving all 4 extremities. Calves are nontender without edema or cords. Radial pulses are equal symmetrical. Back is nontender. Neurologically she is awake alert with no focal motor deficits. Test Results: EKG shows a normal sinus rhythm rate of 71 with no acute signs of [place] or ischemia. No S1Q3T3. Emergency Department Course and Treatment: Clinically I agree with the patient diagnoses and acute panic or anxiety attack. She will be given 1 mg p.o. of Ativan. I do not think she needs any further cardiac work-up. She has no DVT or PE risk factors nor history. Treatment Plan: Follow-up with primary care physician for her anxiety. Start on her anxiety medication at home. Return if feeling worse. Disposition: Discharge Impression: Acute anxiety attack Acute chest pain secondary to anxiety This note was generated with [employer] dictation software. It may contain incorrect words, spelling, and punctuation that were not noted in review of the chart prior to signing ED Disposition - Plan for ED Patient: Referrals: Shady Sahni MD [Primary Care Provider] -
--- NOTE | 2020-09-16 11:11 | EKG12_ITS ---
Test Reason : CP Blood Pressure : / mmHG Vent. Rate : 071 BPM Atrial Rate : 071 BPM P-R Int : 138 ms QRS Dur : 086 ms QT Int : 398 ms P-R-T Axes : 029 063 025 degrees QTc Int : 432 ms Normal sinus rhythm with sinus arrhythmia Normal ECG Confirmed by LOUIS BEST, CESAR ([id number]), editor & co founder TASHA HOLT ([id number]) on 09/22/2020 2:07:40 PM Referred By: NILESH Confirmed By:CESAR MYERS MD
--- NOTE | 2020-09-16 11:15 | ED.DEP ---
ED Disposition - Plan for ED Patient: Disposition: Home or Assisted Living Instructions: ED Panic Attack Referrals: Shady Sahni MD [Primary Care Provider] - 3-5 Days Additional Instructions: Follow-up with your primary care doctor as needed. Begin your anxiety medication.
[2020-09-16] MEDS: LORazepam 1 MG Tablet PO (11:19)
[2020-09-16 11:53] VITALS: BP 145/95
[2020-09-16 12:05] VITALS: PULSE 100; RESP 16; O2SAT 98
== END 2020-09-16 12:06 | disposition home or self-care (01) ==
PROVIDERS: Emergency Provider Emergency Medicine; PCP Family Medicine
DX: F41.0 Panic disorder [episodic paroxysmal anxiety] (principal); Z72.0 Tobacco use
CPT/HCPCS: 93005; 99284

== ENCOUNTER 2020-11-06 07:56 | Emergency (ER) | payer OTHER, SELFPAY ==
[2020-11-06 07:57] VITALS: BP 156/64; PULSE 99; RESP 16; TEMP 35.6; O2SAT 99; BMI 34.7
--- NOTE | 2020-11-06 08:18 | EKG12_ITS ---
Test Reason : Blood Pressure : / mmHG Vent. Rate : 082 BPM Atrial Rate : 082 BPM P-R Int : 144 ms QRS Dur : 088 ms QT Int : 360 ms P-R-T Axes : 033 063 005 degrees QTc Int : 420 ms Normal sinus rhythm Normal ECG Confirmed by DOUG BEST, MAGDALENO ([id number]), web content editor TASHA HOLT ([id number]) on 11/07/2020 8:21:12 AM Referred By: GHAZAL Confirmed By:SIRI CAMACHO MD
--- NOTE | 2020-11-06 08:18 | RAD_ITS ---
STUDY: X-RAY CHEST REASON FOR EXAM: Female, 34 years old. Chest pain TECHNIQUE: Single AP portable view of the chest. COMPARISON: Comparison is made with prior study dated 07/02/2019. FINDINGS: The lungs are clear and expanded. Scattered calcified granulomas. There is no demonstrated pleural abnormality. Normal size heart. Normal mediastinum and dima. Normal visualized pulmonary arteries. Normal visualized aortic arch and descending thoracic aorta. Normal visualized thoracic spine. Normal visualized ribs, clavicles, and shoulders. There is no demonstrated abnormality of the visualized soft tissue structures of the upper abdomen. RAD/Chest 1 View (Portable) IMPRESSION: Normal x-ray examination of the chest. Electronically Signed: Ji Bloom MD at 9:21 EDT , Service support ,
--- NOTE | 2020-11-06 08:19 | ED.DCSUM_ITS ---
History of Present Illness Chief Complaint: Anxiety Informant: Patient Narrative: 34-year-old female presents to the emergency department with a panic attack. Patient states that she was at work developed chest pain and then shortness of breath and then began to have severe anxiety to the point where she needed to leave. She tells me that she has been battling anxiety and several months ago went to see her doctor and was started on Seroquel. She states that that has made her have difficulties at work where she felt like she was not there and would not perform her job satisfactorily. Couple days ago she states she was changed to Seroquel XR. She states that over the past year she had significant stressors during the pandemic and began drinking up to a 12 pack of beer a day. But a week and a half ago she stopped that and has only had about 3 beers since. She states she has a lot of anxiety about coronary artery disease because she has a strong family history of that. She denies any suicidal or homicidal ideation. She states that her anxiety is causing her not to sleep. She states she has been eating. She states her anxiety has not been bad enough that she has had to come to the hospital for a very long time. Past Medical History - Allergies and Home Meds Allergies/Adverse Reactions: Allergies No Known Allergies Allergy (Verified 11/06/20 07:59) Primary Care Physician: Shady Sahni MD [Primary Care Provider] - Keep Ram[facility] appointment Past Medical History: - - Generalized anxiety disorder Surgical History: noncontributory Smoking Status: Current every day smoker Alcohol: Heavy - See history of present illness Drugs: None Review of Systems General: Denies: Chills, Fever, Sweats Eyes: Denies: Visual changes - bilaterally, Diplopia ENT: Denies: Rhinorrhea, Sore throat Cardiovascular: Reports: Chest pain. Denies: Palpitations Respiratory: Reports: Dyspnea. Denies: Cough, Dyspnea on exertion Gastrointestinal: Denies: Abdominal pain, Nausea, Vomiting, Diarrhea, Melena, Hematochezia Genitourinary: Denies: Dysuria, Hematuria, Frequency Musculoskeletal: Denies: Back pain, Extremity Pain Skin: Denies: Rash, Wounds Neurological: Denies: Headache, Weakness, Numbness Psych: Reports: Depression, Anxiety. Denies: Suicidal thoughts, Suicidal ideations Physical Exam Vital Signs/Narrative: Vital Signs Temp Pulse Resp BP Pulse Ox 11/06/20 07:57 96.1 F L 99 16 156/64 H 99 Inital Vital Signs reviewed: Yes General: Well nourished, Well developed, No Acute Distress Head: Normocephalic, Atraumatic Eyes: Perrl, EOMI ENT: Moist mucous membranes, No rhinorrhea Neck: Supple, Nontender Cardiovascular: Regular rate, Regular rhythm, No murmurs Respiratory: No distress, CTA bilaterally, Chest nontender Abdomen: Soft, Nontender, Nondistended, Normal bowel sounds Back: Nontender, Normal Inspection Extremities: Nontender, No edema Skin: Normal color, No rash Neurological: Alert, Oriented x3, Cranial nerves II-XII grossly intact, Normal Strength, Normal Sensation Psychological: Depressed, Tearful - Patient denies suicidal homicidal ideation. Diagnostic/Tx/Re-eval Laboratory Last Values WBC 8.2 K/mm3 (4.4-11.0) 11/06/20 08:40 RBC 4.64 M/mm3 (4.2-5.4) 11/06/20 08:40 Hgb 15.2 g/dL (12.0-15.0) H 11/06/20 08:40 Hct 46.1 % (37-47) 11/06/20 08:40 MCV 99.4 fL (81-99) H 11/06/20 08:40 MCH 32.8 pg (27.0-32.0) H 11/06/20 08:40 MCHC 33.0 g/dL (32-36) 11/06/20 08:40 RDW Std Deviation 43.9 fl (35.1-43.9) 11/06/20 08:40 RDW Coeff of Marguerite 12.0 % (11.6-14.6) 11/06/20 08:40 Plt Count 333 K/mm3 (150-450) 11/06/20 08:40 MPV 9.1 fl (6.2-12.0) 11/06/20 08:40 Immature Gran % (Auto) 0.100 % (0.0-0.9) 11/06/20 08:40 Neut % (Auto) 70.9 % (47-70) H 11/06/20 08:40 Lymph % (Auto) 20.7 % (19-41) 11/06/20 08:40 [place] % (Auto) 6.1 % (0-10) 11/06/20 08:40 Eos % (Auto) 1.6 % (0-5) 11/06/20 08:40 Baso % (Auto) 0.6 % (0-1) 11/06/20 08:40 Absolute Neuts (auto) 5.8 X10^3/uL (2.0-7.7) 11/06/20 08:40 Absolute Lymphs (auto) 1.69 X10^3/uL (0.83-4.51) 11/06/20 08:40 Nucleated RBC % 0 % (0-5) 11/06/20 08:40 Sodium 139 mmol/L (136-145) 11/06/20 08:40 Potassium 3.6 mmol/L (3.5-5.1) 11/06/20 08:40 Chloride 108 mmol/L (98-107) H 11/06/20 08:40 Carbon Dioxide 27.0 mmol/L (21.0-32.0) 11/06/20 08:40 Anion Gap 4 (5-15) L 11/06/20 08:40 BUN 11 mg/dL (7-18) 11/06/20 08:40 Creatinine 0.78 mg/dL (0.55-1.02) 11/06/20 08:40 Estim Creat Clear Calc 84.07 ml/min 11/06/20 08:40 Est GFR (MDRD) Af Amer 108 mL/min (>60) 11/06/20 08:40 Est GFR (MDRD) Non-Af 89 mL/min (>60) 11/06/20 08:40 BUN/Creatinine Ratio 14.1 RATIO (10-20) 11/06/20 08:40 Glucose 89 mg/dL (74-106) 11/06/20 08:40 Calcium 9.4 mg/dL (8.5-10.1) 11/06/20 08:40 Total Bilirubin 0.40 mg/dL (0.20-1.00) 11/06/20 08:40 AST 10 U/L (15-37) L 11/06/20 08:40 ALT 25 U/L (13-56) 11/06/20 08:40 Alkaline Phosphatase 41 U/L (45-117) L 11/06/20 08:40 Total Protein 7.4 g/dL (6.4-8.2) 11/06/20 08:40 Albumin 4.1 g/dL (3.2-5.0) 11/06/20 08:40 Globulin 3.3 g/dL (2.2-4.2) 11/06/20 08:40 Albumin/Globulin Ratio 1.2 RATIO (0.9-2.4) 11/06/20 08:40 TSH 0.66 uIU/mL (0.358-3.74) 11/06/20 08:40 Serum , Qual NEGATIVE Negative 11/06/20 08:40 Urine Opiates Screen NEGATIVE (< 300 ng/mL) 11/06/20 09:15 Urine Methadone Screen NEGATIVE (< 300 ng/mL) 11/06/20 09:15 Ur Barbiturates Screen NEGATIVE (< 200 ng/mL) 11/06/20 09:15 Ur Phencyclidine Scrn NEGATIVE (< 25 ng/mL) 11/06/20 09:15 Ur Amphetamines Screen NEGATIVE (<1000 ng/mL) 11/06/20 09:15 U Methamphetamin-MDMA NEGATIVE (< 500 ng/mL) 11/06/20 09:15 U Benzodiazepines Scrn NEGATIVE (< 200 ng/mL) 11/06/20 09:15 Urine Cocaine Screen NEGATIVE (< 300 ng/mL) 11/06/20 09:15 U Cannabinoids Screen NEGATIVE (< 50 ng/mL) 11/06/20 09:15 Ur Drug Screen Comment 11/06/20 09:15 Ethyl Alcohol < 3.0 mg/dL 11/06/20 08:40 Clinical Impression(s) from Imaging Studies Chest X-Ray 11/06/20 08:18 IMPRESSION: Normal x-ray examination of the chest. Electronically Signed: Ji Bloom MD at 9:21 EDT , Service support , - Medical Decision Making My interpretation of the single view portable chest x-ray is no acute process. Radiology concurs. Basic work-up is negative. Patient received Ativan. I have asked our social service director to evaluate the patient. They are in agreement that the patient does not seem to be at risk and require inpatient psychiatric care. She has an appointment upcoming with psychiatry. We talked about IOP program but with her work schedule that is not an option at the current time. I am going to write for her to have a few Ativan at home should her panic attacks get worse before she sees her psychiatrist. Return if worsening or concerns. ED Disposition - Plan for ED Patient: Disposition: Home or Assisted Living Diagnosis: Panic attacks, Chest pain Instructions: ED Panic Attack Prescriptions: Lorazepam [Ativan] 1 mg PO TID PRN #10 tab PRN Reason: Anxiety Transmission Status: Received by [id number] Referrals: Shady Sahni MD [Primary Care Provider] - Keep Ramon appointment Additional Instructions: Please follow-up with psychiatry as scheduled.
[2020-11-06] MEDS: LORazepam 1 MG Tablet PO (08:36)
[2020-11-06 08:48] LABS: Absolute Lymphocyte Count 1.69 X10^3/uL (0.83-4.51); Absolute Neutrophil Count 5.8 X10^3/uL (2.0-7.7); Basophil# 0.05 X10^3/uL; Basophil% 0.6 % (0-1); Eosinophil# 0.13 X10^3/uL; Eosinophils% 1.6 % (0-5); Hematocrit 46.1 % (37-47); Hemoglobin 15.2 g/dL (12.0-15.0); Lymphocyte # 1.69 X10^3/ul (0.83-4.51); Lymphocyte % 20.7 % (19-41); Mean Corpuscular Hgb 32.8 pg (27.0-32.0); Mean Corpuscular Volume 99.4 fL (81-99); Mean Platelet Vol. 9.1 fl (6.2-12.0); Monocyte% 6.1 % (0-10); NRBC Flagged by Analyzer 0 % (0-5); Neutrophil # 5.78 X10^3/uL (2.7-7.7); Neutrophil % 70.9 % (47-70); Platelet Count 333 K/mm3 (150-450); RBC Distribution Width SD 43.9 fl (35.1-43.9); Red Blood Count 4.64 M/mm3 (4.2-5.4); White Blood Count 8.2 K/mm3 (4.4-11.0)
[2020-11-06 09:11] LABS: ALB/GLOB Ratio 1.2 RATIO (0.9-2.4); AST(SGOT) 10 U/L (15-37); Alanine Aminotransfer ALT/SGPT 25 U/L (13-56); Albumin, Serum 4.1 g/dL (3.2-5.0); Alkaline Phosphatase 41 U/L (45-117); Anion Gap 4 (5-15); BUN 11 mg/dL (7-18); BUN/Creat Ratio 14.1 RATIO (10-20); Calcium,Total 9.4 mg/dL (8.5-10.1); Chloride 108 mmol/L (98-107); Creatinine, Serum 0.78 mg/dL (0.55-1.02); EST Glomerular Filtration Rate 89 mL/min (>60); Est Glom Filt Rate - Afr Amer 108 mL/min (>60); Estimated Creatinine Clearance 84.07 ml/min; Globulin 3.3 g/dL (2.2-4.2); Glucose 89 mg/dL (74-106); Potassium 3.6 mmol/L (3.5-5.1); Protein, Total 7.4 g/dL (6.4-8.2); Sodium Level 139 mmol/L (136-145); Thyroid Stim Hormone (TSH) 0.66 uIU/mL (0.358-3.74)
[2020-11-06 09:21] LABS: Alcohol, Blood (Medical)-Serum < 3.0 mg/dL
[2020-11-06 09:32] LABS: Internal QC Validated? YES +Cl - CLEAR BKGD; Pregnancy, Serum, hCG Quali. NEGATIVE Negative
[2020-11-06 09:41] LABS: Amphetamine Urine VISTA NEGATIVE (<1000 ng/mL); Barbiturate Urine VISTA NEGATIVE (< 200 ng/mL); Benzodiazepine Urine VISTA NEGATIVE (< 200 ng/mL); Cocaine Urine VISTA NEGATIVE (< 300 ng/mL); Ecstacy Urine VISTA NEGATIVE (< 500 ng/mL); Methadone Urine VISTA NEGATIVE (< 300 ng/mL); PCP Urine VISTA NEGATIVE (< 25 ng/mL); THC Urine VISTA NEGATIVE (< 50 ng/mL); Vista UDS pH Range 7
[2020-11-06 11:22] VITALS: BP 127/82; PULSE 67; RESP 15; O2SAT 99
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
== END 2020-11-06 11:23 | disposition home or self-care (01) ==
PROVIDERS: Emergency Provider Emergency Medicine; PCP Family Medicine
DX: F41.0 Panic disorder [episodic paroxysmal anxiety] (principal); F17.200 Nicotine dependence, unspecified, uncomplicated
CPT/HCPCS: 71045; 80053; 80307; 82077; 84443; 84703; 85025; 93005; 99283; A4216

== ENCOUNTER 2021-01-13 11:54 | Emergency (ER) | payer OTHER, SELFPAY ==
[2021-01-13 11:54] VITALS: BP 149/76; PULSE 85; RESP 16; TEMP 36.6; O2SAT 98; BMI 34.6
--- NOTE | 2021-01-13 12:05 | RAD_ITS ---
HISTORY: FALL. TECHNIQUE: XR Shoulder Min 2 Views. Number of images including paperwork: 4. COMPARISON: None. FINDINGS: OSSEOUS STRUCTURES: No acute fracture identified. Mineralization unremarkable. JOINT SPACES: No glenohumeral dislocation. Acromioclavicular joint maintained without subluxation. SOFT TISSUES: Visualized upper lung clear. RAD/Shoulder min 2 Views IMPRESSION: No acute fracture or dislocation identified in the left shoulder. at 1221 Reported and signed by: Anne Anderson MD Electronically Signed: Anne Anderson MD at 12:20 EDT Tel , Service support ,
--- NOTE | 2021-01-13 12:05 | RAD_ITS ---
HISTORY: FALL. TECHNIQUE: XR Wrist Min 3 Views. Number of images including paperwork: 3. COMPARISON: 10/27/2017. FINDINGS: OSSEOUS STRUCTURES: No acute fracture. Mineralization unremarkable. JOINT SPACES: Maintained. No dislocation. RAD/Wrist min 3 Views IMPRESSION: No acute fracture or dislocation identified in the right wrist. at 1222 Reported and signed by: Anne Anderson MD Electronically Signed: Anne Anderson MD at 12:21 EDT Tel , Service support ,
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
[2021-01-13 13:19] VITALS: RESP 16
== END 2021-01-13 13:26 | disposition home or self-care (01) ==
PROVIDERS: Emergency Provider Emergency Medicine; PCP Family Medicine
DX: S40.012A Contusion of left shoulder, initial encounter (principal); S63.501A Unspecified sprain of right wrist, initial encounter; W19.XXXA Unspecified fall, initial encounter; Y93.9 Activity, unspecified; Y92.9 Unspecified place or not applicable; F17.200 Nicotine dependence, unspecified, uncomplicated
CPT/HCPCS: 73030; 73110; 99282

== ENCOUNTER 2021-03-14 08:31 | Emergency (ER) | payer OTHER, SELFPAY ==
[2021-03-14 08:32] VITALS: BP 138/102; PULSE 84; RESP 16; TEMP 36.7; O2SAT 98; BMI 33.6
--- NOTE | 2021-03-14 09:13 | EKG12_ITS ---
Test Reason : CP Blood Pressure : / mmHG Vent. Rate : 083 BPM Atrial Rate : 083 BPM P-R Int : 140 ms QRS Dur : 084 ms QT Int : 366 ms P-R-T Axes : 032 071 012 degrees QTc Int : 430 ms Normal sinus rhythm Normal ECG Confirmed by RAVI NXI MD ([id number]), photography editor TASHA HOLT ([id number]) on 03/16/2021 12:29:29 PM Referred By: ROGERIO Confirmed By:RAVI NIX MD
--- NOTE | 2021-03-14 09:13 | RAD_ITS ---
History: chest pain EXAMINATION/TECHNIQUE: XR Chest 1 View: Portable COMPARISON: November 06, 2020 FINDINGS: LINES/DEVICES: None. LUNGS: No consolidation, edema or effusion. No pneumothorax. MEDIASTINUM AND CARDIOVASCULAR STRUCTURES: Cardiac silhouette not enlarged. Central airways and mediastinal contour are unremarkable. BONES AND SOFT TISSUES: Unremarkable. RAD/Chest 1 View (Portable) IMPRESSION: No radiographic evidence of acute cardiopulmonary disease. at 0958 Reported and signed by: Joseph Batista MD Electronically Signed: Joseph Batista MD at 9:56 EDT Tel , Service support ,
--- NOTE | 2021-03-14 09:14 | ED.VIS.CHEST ---
HPI History of Present Illness Chief Complaint: Chest Pain Narrative Narrative: Patient presents with chest pain radiating towards her back that began at 7:00 this morning, approximately 2 hours ago. She states that she got up at 4:00 this morning when her was getting ready to go to work. She was having coffee, and began having chest pain that radiated towards her back. She takes Lexapro for anxiety, but forgot to take it yesterday. She is unsure if this is related to a panic attack. She denies any nausea or vomiting. No shortness of breath. No exacerbating or alleviating factors to the sharp pain that has been constant in her chest and back. She denies any leg swelling. No PE or DVT risk factors. She has had partial hysterectomy. She was afraid to take her medications for anxiety at home because she was alone. [facility] Medical History (Updated 03/14/21 @ 12:41 by Fernando Araiza MD) Anxiety Home Medications multivitamin with minerals [Multiple Vitamin] 1 ea PO DAILY 10/30/18 [History Last Taken Unknown] lorazepam 1 mg PO TID PRN #10 tab 11/06/20 [Rx Last Taken Unknown] quetiapine 50 mg PO QHS 11/06/20 [History Last Taken Unknown] Allergy/AdvReac Type Severity Reaction Status Date / Time No Known Allergies Allergy Verified 03/14/21 08:37 Surgical History (Updated 03/14/21 @ 09:29 by Gala Ray) History of hysterectomy Social History Smoking Status: Current every day smoker tobacco type: cigarettes ROS ROS ED ROS Narrative Constitutional: No fever, no chills. HEENT: No sore throat. No neck pain. No loss of vision. No rhinorrhea. Cardiovascular: Positive chest pain radiating to back. No palpitations. No pedal edema. Respiratory: No cough, no shortness of breath. Abdominal: No abdominal pain. No nausea. No vomiting. Genitourinary: No dysuria. No hematuria. Musculoskeletal: No myalgias. No arthralgias. Neurologic: No headaches. No dizziness. No lightheadedness. Skin: No rash. No change in color. Psychiatric: No depression. Positive anxiety. EXAM Physical Exam Narrative Exam Narrative: Afebrile. Vital signs noted. HEENT: Normocephalic. Atraumatic. PERRL, EOMI. Neck soft and supple. No point tenderness or step off. Cardiovascular: Regular rate and rhythm with intermittent tachycardia. No murmurs, rubs, or gallops appreciated. Respiratory: Mild tachypnea. Lungs clear to auscultation bilaterally. Gastrointestinal: Abdomen soft, nontender, with normoactive bowel sounds. No rebound or guarding. Neurological: Awake. Alert. Nonfocal, nonlateralizing. Skin: No rash. Normal color. No pallor. Musculoskeletal: No pedal edema. Full range of motion extremities. Psychiatric: Tearful on examination. Positive anxiety. Const Vital Signs: 03/14/21 08:32 03/14/21 09:28 03/14/21 09:31 Temperature 98.0 F Temperature Source Temporal Pulse Rate 84 70 Respiratory Rate 16 12 Respiratory Pattern Normal Blood Pressure 138/102 H 129/80 H Blood Pressure Mean 114 96 Pulse Ox 98 100 Oxygen Delivery Method Room Air Room Air 03/14/21 11:00 Temperature Temperature Source Pulse Rate 71 Respiratory Rate 16 Respiratory Pattern Blood Pressure Blood Pressure Mean Pulse Ox 99 Oxygen Delivery Method Room Air MDM MDM MDM Narrative Medical decision making narrative: Comprehensive work-up was pursued. Patient is hyperventilating intermittently and tearful. Chest pain work-up was pursued. Her EKG demonstrates normal sinus rhythm at 83 bpm without ectopy or acute ST changes. She was administered Ativan 1 mg intravenously. Chest x-ray in one view is grossly unremarkable, no acute cardiopulmonary process. WBC count is normal at 8.7, hemoglobin stable at 14.6. Her D-dimer is normal. Her electrolyte panel is grossly unremarkable. Initial high-sensitivity troponin is normal at 4. After Ativan, upon repeat examination at approximately 1235, she is resting comfortably, using her cellular telephone. At this point in time, I will repeat a high-sensitivity troponin. I anticipate that it will be normal. As long as it is, she will be discharged to follow-up with her primary care physician. I do feel that the majority of her symptoms were probably anxiety related as she forgot to take her extended release medication yesterday because she did not have it with her. I have very low suspicion for aortic dissection. Her chest pain and hyperventilation has essentially resolved. Her second troponin is negative at 4, giving a delta troponin that is negative. Disposition is discharged home in stable condition. Lab Data Attestation: I reviewed the patient's lab results. Labs: Laboratory Results - last 24 hr 03/14/21 03/14/21 03/14/21 09:15 09:15 09:15 WBC 8.7 RBC 4.44 Hgb 14.6 Hct 43.7 MCV 98.4 MCH 32.9 H MCHC 33.4 RDW Std Deviation 45.2 H RDW Coeff of Marguerite 12.4 Plt Count 336 MPV 9.2 Immature Gran % (Auto) 0.200 Neut % (Auto) 65.4 Lymph % (Auto) 24.4 Briscoe % (Auto) 7.2 Eos % (Auto) 2.1 Baso % (Auto) 0.7 Absolute Neuts (auto) 5.7 Absolute Lymphs (auto) 2.12 Nucleated RBC % 0 D-Dimer Quant (PE/DVT) <= 0.27 Sodium 138 Potassium 4.0 Chloride 104 Carbon Dioxide 26.0 Anion Gap 8 BUN 11 Creatinine 0.68 Estim Creat Clear Calc 95.52 Est GFR (MDRD) Af Amer 126 Est GFR (MDRD) Non-Af 105 BUN/Creatinine Ratio 16.2 Glucose 95 Calcium 9.4 Troponin I High Sens 4 03/14/21 12:45 WBC RBC Hgb Hct MCV MCH MCHC RDW Std Deviation RDW Coeff of Marguerite Plt Count MPV Immature Gran % (Auto) Neut % (Auto) Lymph % (Auto) Briscoe % (Auto) Eos % (Auto) Baso % (Auto) Absolute Neuts (auto) Absolute Lymphs (auto) Nucleated RBC % D-Dimer Quant (PE/DVT) Sodium Potassium Chloride Carbon Dioxide Anion Gap BUN Creatinine Estim Creat Clear Calc Est GFR (MDRD) Af Amer Est GFR (MDRD) Non-Af BUN/Creatinine Ratio Glucose Calcium Troponin I High Sens 4 Radiography Diagnostic Testing: Radiology Impression Chest X-Ray 03/14/21 09:13 IMPRESSION: No radiographic evidence of acute cardiopulmonary disease. at 0958 Reported and signed by: Joseph Batista MD Electronically Signed: Joseph Batista MD at 9:56 EDT Tel , Service support , Discharge Plan Triage Chief Complaint: Chest Pain ED Provider: Fernando Araiza Dx/Rx/DC Orders Clinical Impression: Chest pain, Anxiety attack Instructions: ED Chest Pain, Uncertain Cause, ED Panic Attack Prescriptions: No Action multivitamin with minerals [Multiple Vitamin-Minerals] 1 EACH tablet 1 ea PO DAILY RF: 0 quetiapine 50 MG tablet extended release 24 hr 50 mg PO QHS RF: 0 lorazepam 1 MG tablet 1 mg PO TID PRN (Reason: Anxiety) Qty: 10 RF: 0 Primary Care Provider: Shady Sahni Referrals: Shady Sahni MD [Primary Care Provider] - 03/16/21 Disposition Disposition: Home, Self Care
[2021-03-14] MEDS: Aspirin 81 MG TAB.CHEW 324 MG PO (09:21)
[2021-03-14] MEDS: LORazepam 2 MG/ML Syringe 1 MG IV (09:23)
[2021-03-14 09:28] VITALS: PULSE 70; RESP 12; O2SAT 100
[2021-03-14 09:31] VITALS: BP 129/80
[2021-03-14 09:38] LABS: Absolute Lymphocyte Count 2.12 X10^3/uL (0.83-4.51); Absolute Neutrophil Count 5.7 X10^3/uL (2.0-7.7); Basophil# 0.06 X10^3/uL; Basophil% 0.7 % (0-1); Eosinophil# 0.18 X10^3/uL; Eosinophils% 2.1 % (0-5); Hematocrit 43.7 % (37-47); Hemoglobin 14.6 g/dL (12.0-15.0); Lymphocyte # 2.12 X10^3/ul (0.83-4.51); Lymphocyte % 24.4 % (19-41); Mean Corp Hgb Conc 33.4 g/dL (32-36); Mean Corpuscular Hgb 32.9 pg (27.0-32.0); Mean Corpuscular Volume 98.4 fL (81-99); Mean Platelet Vol. 9.2 fl (6.2-12.0); Monocyte# 0.63 X10^3/uL; Monocyte% 7.2 % (0-10); NRBC Flagged by Analyzer 0 % (0-5); Neutrophil # 5.69 X10^3/uL (2.7-7.7); Neutrophil % 65.4 % (47-70); Platelet Count 336 K/mm3 (150-450); RBC Distribution Width CV 12.4 % (11.6-14.6); RBC Distribution Width SD 45.2 fl (35.1-43.9); Red Blood Count 4.44 M/mm3 (4.2-5.4); White Blood Count 8.7 K/mm3 (4.4-11.0)
[2021-03-14 09:53] LABS: D-Dimer Quantitative (DVT/PE) <= 0.27 FEU/ug/m (0.27-0.49)
[2021-03-14 09:56] LABS: Anion Gap 8 (5-15); BUN 11 mg/dL (7-18); BUN/Creat Ratio 16.2 RATIO (10-20); Calcium,Total 9.4 mg/dL (8.5-10.1); Chloride 104 mmol/L (98-107); Creatinine, Serum 0.68 mg/dL (0.55-1.02); EST Glomerular Filtration Rate 105 mL/min (>60); Est Glom Filt Rate - Afr Amer 126 mL/min (>60); Estimated Creatinine Clearance 95.52 ml/min; Glucose 95 mg/dL (74-106); Sodium Level 138 mmol/L (136-145); Troponin-I HS 4 pg/mL (3.0-54.0)
[2021-03-14 11:00] VITALS: PULSE 71; RESP 16; O2SAT 99
[2021-03-14 13:25] LABS: Troponin-I HS 4 pg/mL (3.0-54.0)
== END 2021-03-14 13:47 | disposition home or self-care (01) ==
PROVIDERS: Emergency Provider Emergency Medicine; PCP Family Medicine
DX: F41.0 Panic disorder [episodic paroxysmal anxiety] (principal); R07.9 Chest pain, unspecified; Z79.899 Other long term (current) drug therapy; F17.210 Nicotine dependence, cigarettes, uncomplicated
CPT/HCPCS: 71045; 80048; 84484; 85025; 85379; 93005; 96374; 99285; A4216

== ENCOUNTER 2021-08-12 09:21 | Emergency (ER) | payer BC, SELFPAY ==
[2021-08-12 09:24] VITALS: BP 141/99; PULSE 87; RESP 17; TEMP 35.7; O2SAT 100; BMI 37.4
--- NOTE | 2021-08-12 09:46 | EKG12_ITS ---
Test Reason : MED CLEARANCE Blood Pressure : / mmHG Vent. Rate : 088 BPM Atrial Rate : 088 BPM P-R Int : 154 ms QRS Dur : 078 ms QT Int : 376 ms P-R-T Axes : 035 054 020 degrees QTc Int : 454 ms Normal sinus rhythm with sinus arrhythmia Normal ECG Confirmed by DOUG BEST, MAGDALENO ([id number]), proposal editor TASHA HOLT ([id number]) on 08/14/2021 1:05:04 PM Referred By: PL Confirmed By:SIRI CAMACHO MD
--- NOTE | 2021-08-12 09:46 | RAD_ITS ---
STUDY: X-RAY CHEST REASON FOR EXAM: Female, 35 years old. Cough TECHNIQUE: Single AP portable view of the chest. COMPARISON: Comparison is made with prior study dated 03/14/2021. FINDINGS: Mild increased markings in the posterior medial segment of the right lower lobe. Early infiltrate should be ruled out. There is no demonstrated pleural abnormality. Normal size heart. Normal mediastinum and dima. Normal visualized pulmonary arteries. Normal visualized aortic arch and descending thoracic aorta. There are diffuse degenerative changes of the visualized thoracic spine. Normal visualized ribs, clavicles, and shoulders. There is no demonstrated abnormality of the visualized soft tissue structures of the upper abdomen. RAD/Chest 1 View (Portable) IMPRESSION: Findings suggestive of an early right basilar infiltrate. Electronically Signed: Ji Bloom MD at 10:41 EST ,
--- NOTE | 2021-08-12 09:47 | EDS_ITS ---
HPI HPI - Psych History of Present Illness Chief Complaint: Mental Health Informant: patient Narrative Narrative: Patient was sent over by crisis for placement for worsening depression anxiety. Patient states she does not want to kill herself but she is having trouble functioning. She states she is still depressed she is getting agitated. She is causing fights with her . She is putting her life and lifestyle at risk. She is on BuSpar and taking it. She was on Seroquel but quit it just a few days ago. It really was not helping and there is no change since stopping it. She wants help. She wants to get better. She has no physical complaints now. She states when her anxiety gets bad she feels a tightness in her chest but she also gets tingling in fingertips. She has no history of heart disease. Patient has had hysterectomy. [facility] Medical History Anxiety Depression PTSD (post-traumatic stress disorder) Home Medications multivitamin with minerals [Multiple Vitamin] 1 ea PO DAILY 10/30/18 [History Last Taken Unknown] buspirone [BuSpar] 10 mg PO BID 08/12/21 [History Last Taken Unknown] Allergy/AdvReac Type Severity Reaction Status Date / Time No Known Allergies Allergy Verified 08/12/21 09:22 Surgical History History of hysterectomy Social History Smoking Status: Current every day smoker tobacco type: cigarettes ROS ROS ED Constitutional Constitutional ED: Denies fever(s) or subjective Eyes Eyes: Denies blurry vision ENT ENT ED: Denies rhinorrhea or sore throat Cardiovascular Cardiovascular: Reports palpitations; Denies chest pain Respiratory/Chest Respiratory/Chest: Denies cough or dyspnea Gastrointestinal Gastrointestinal: Denies diarrhea, nausea or vomiting Genitourinary Genitourinary ED: Denies dysuria Musculoskeletal Musculoskeletal: Denies myalgias Integumentary Denies rash Neurologic Neurologic: Denies headache(s) or weakness Psychiatric Psychiatric: Reports anxiety and depression; Denies suicidal ideation or suicidal thoughts Endocrine Endocrinology: Denies polyuria Hematologic/Lymphatic Hematologic/Lymphatic: Denies easy bleeding or easy bruising Allergic/Immunologic Allergic/Immunologic ED: Denies mouth swelling or urticaria EXAM Physical Exam Const Vital Signs: 08/12/21 09:24 Temperature 96.2 F L Temperature Source Temporal Pulse Rate 87 Respiratory Rate 17 Blood Pressure 141/99 H Blood Pressure Mean 113 Pulse Ox 100 Oxygen Delivery Method Room Air Positive well nourished and well developed Constitutional Narrative: Patient is actively crying when I walk in the room. General Appearance ED: well developed and NAD HEENT normocephalic Eyes PERRL General Eye ED: Negative for pale conjunctiva or scleral icterus Neck no JVD Resp normal respiratory effort and clear to auscultation bilaterally Auscultation: Negative for rales, rhonchi or wheezes Cardio no murmurs Rate: regular rate Rhythm: regular rhythm GI non-tender Palpation: soft Back/Spine no CVA tenderness Neuro oriented x3 Sensorium / Orientation: alert Psych cooperative Psych Narrative: Patient is pleasant and cooperative. She is very tearful. She does make poor eye contact. She seems to be depressed clinically. No flight of ideas. No paranoia. Attitude: No bizarre and No evasive Activity / Motor Behavior: avoids eye contact Thought Process: normal thought process Skin Lesions: no lesions Rashes: no rashes MDM MDM MDM Narrative Medical decision making narrative: CBC shows no acute process. Electrolytes are normal. Tox screen and alcohol are negative. X-ray is read as possible early right basilar infiltrate. However, I think this is likely breast tissue. She has no cough fever or white count. She has occasional tightness in the chest only when she is having anxiety attacks. The patient is medically cleared for psychiatric evaluation and admission if needed. Patient is excepted at [facility]. She has been seen by our social work. Lab Data Attestation: I reviewed the patient's lab results. Labs: Laboratory Results - last 24 hr 08/12/21 08/12/21 08/12/21 09:50 09:58 09:58 WBC 7.4 RBC 4.56 Hgb 14.9 Hct 44.8 MCV 98.2 MCH 32.7 H MCHC 33.3 RDW Std Deviation 44.3 H RDW Coeff of Marguerite 12.2 Plt Count 342 MPV 9.3 Immature Gran % (Auto) 0.300 Neut % (Auto) 65.6 Lymph % (Auto) 23.9 [place] % (Auto) 7.3 Eos % (Auto) 2.4 Baso % (Auto) 0.5 Absolute Neuts (auto) 4.8 Absolute Lymphs (auto) 1.76 Nucleated RBC % 0 Sodium 138 Potassium 4.0 Chloride 105 Carbon Dioxide 26.0 Anion Gap 7 BUN 13 Creatinine 0.76 Estim Creat Clear Calc 85.47 Est GFR (MDRD) Af Amer 112 Est GFR (MDRD) Non-Af 92 BUN/Creatinine Ratio 17.2 Glucose 90 Calcium 9.0 Urine Opiates Screen NEGATIVE Urine Methadone Screen NEGATIVE Ur Barbiturates Screen NEGATIVE Ur Phencyclidine Scrn NEGATIVE Ur Amphetamines Screen NEGATIVE U Methamphetamin-MDMA NEGATIVE U Benzodiazepines Scrn NEGATIVE Urine Cocaine Screen NEGATIVE U Cannabinoids Screen NEGATIVE Ur Drug Screen Comment Ethyl Alcohol 08/12/21 09:58 WBC RBC Hgb Hct MCV MCH MCHC RDW Std Deviation RDW Coeff of Marguerite Plt Count MPV Immature Gran % (Auto) Neut % (Auto) Lymph % (Auto) [place] % (Auto) Eos % (Auto) Baso % (Auto) Absolute Neuts (auto) Absolute Lymphs (auto) Nucleated RBC % Sodium Potassium Chloride Carbon Dioxide Anion Gap BUN Creatinine Estim Creat Clear Calc Est GFR (MDRD) Af Amer Est GFR (MDRD) Non-Af BUN/Creatinine Ratio Glucose Calcium Urine Opiates Screen Urine Methadone Screen Ur Barbiturates Screen Ur Phencyclidine Scrn Ur Amphetamines Screen U Methamphetamin-MDMA U Benzodiazepines Scrn Urine Cocaine Screen U Cannabinoids Screen Ur Drug Screen Comment Ethyl Alcohol < 3.0 Radiography Diagnostic Testing: Clinical Impression(s) from Imaging Studies Chest X-Ray 08/12/21 09:46 IMPRESSION: Findings suggestive of an early right basilar infiltrate. Electronically Signed: Ji Bloom MD at 10:41 EST , EKG Initial EKG: Comments: EKG done as part of medical clearance read by me shows sinus rhythm with slight sinus arrhythmia. No ventricular ectopy. No acute ST elevation or depression. NM interval, QRS duration and QTc are normal. Discharge Plan Triage Chief Complaint: Mental Health ED Provider: Delio Schumacher Dx/Rx/DC Orders Clinical Impression: Depression, Anxiety Prescriptions: No Action Multiple Vitamin-Minerals 1 EACH tablet 1 ea PO DAILY RF: 0 buspirone [BuSpar] 10 mg Tablet 10 mg PO BID RF: 0 Primary Care Provider: Shady Sahni Referrals: Shady Sahni MD [Primary Care Provider] - Disposition Disposition: Psychiatric Hospital or Unit Discharge Location: [facility]
[2021-08-12 10:10] LABS: Amphetamine Urine VISTA NEGATIVE (<1000 ng/mL); Barbiturate Urine VISTA NEGATIVE (< 200 ng/mL); Benzodiazepine Urine VISTA NEGATIVE (< 200 ng/mL); Cocaine Urine VISTA NEGATIVE (< 300 ng/mL); Ecstacy Urine VISTA NEGATIVE (< 500 ng/mL); Methadone Urine VISTA NEGATIVE (< 300 ng/mL); PCP Urine VISTA NEGATIVE (< 25 ng/mL); THC Urine VISTA NEGATIVE (< 50 ng/mL); Vista UDS pH Range 6
[2021-08-12 10:14] LABS: Absolute Lymphocyte Count 1.76 X10^3/uL (0.83-4.51); Absolute Neutrophil Count 4.8 X10^3/uL (2.0-7.7); Basophil# 0.04 X10^3/uL; Basophil% 0.5 % (0-1); Eosinophil# 0.18 X10^3/uL; Eosinophils% 2.4 % (0-5); Hematocrit 44.8 % (37-47); Hemoglobin 14.9 g/dL (12.0-15.0); Lymphocyte # 1.76 X10^3/ul (0.83-4.51); Lymphocyte % 23.9 % (19-41); Mean Corp Hgb Conc 33.3 g/dL (32-36); Mean Corpuscular Hgb 32.7 pg (27.0-32.0); Mean Corpuscular Volume 98.2 fL (81-99); Mean Platelet Vol. 9.3 fl (6.2-12.0); Monocyte# 0.54 X10^3/uL; Monocyte% 7.3 % (0-10); NRBC Flagged by Analyzer 0 % (0-5); Neutrophil # 4.81 X10^3/uL (2.7-7.7); Neutrophil % 65.6 % (47-70); Platelet Count 342 K/mm3 (150-450); RBC Distribution Width CV 12.2 % (11.6-14.6); RBC Distribution Width SD 44.3 fl (35.1-43.9); Red Blood Count 4.56 M/mm3 (4.2-5.4); White Blood Count 7.4 K/mm3 (4.4-11.0)
[2021-08-12 10:29] LABS: Alcohol, Blood (Medical)-Serum < 3.0 mg/dL
[2021-08-12 10:33] LABS: Anion Gap 7 (5-15); BUN 13 mg/dL (7-18); BUN/Creat Ratio 17.2 RATIO (10-20); Chloride 105 mmol/L (98-107); Creatinine, Serum 0.76 mg/dL (0.55-1.02); EST Glomerular Filtration Rate 92 mL/min (>60); Est Glom Filt Rate - Afr Amer 112 mL/min (>60); Estimated Creatinine Clearance 85.47 ml/min; Glucose 90 mg/dL (74-106); Sodium Level 138 mmol/L (136-145)
[2021-08-12] MEDS: Acetaminophen 500 MG Tablet 1000 MG PO (11:08)
--- NOTE | 2021-08-12 11:14 | CM.ED ---
Social Work Telephone call to [facility]. This social studies teacher making referral. [facility] reports that [facility] and is able to accept patient insurance. Clinical information faxed. Will continue to follow. Arlene GIRALDO, RADHA
--- NOTE | 2021-08-12 12:29 | CM.ED ---
Social Work Telephone call from [facility]. Patient has been accepted by Dr. Curran to [facility]. Nurse to call report to [phone]. Telephone call to Kristen i[facility]on. Updated patient disposition. [facility] to set up transportation. Attempted to update patient on above information, patient currently sleeping. Medical team updated on all above information. Arlene GIRALDO, RADHA
[2021-08-12 13:35] VITALS: BP 137/78; PULSE 90; RESP 17; TEMP 35.7; O2SAT 100
== END 2021-08-12 13:16 ==
PROVIDERS: Emergency Provider Emergency Medicine; PCP Family Medicine; Visit Provider Emergency Medicine
DX: F32.A Depression, unspecified (principal); F41.9 Anxiety disorder, unspecified; F17.210 Nicotine dependence, cigarettes, uncomplicated
CPT/HCPCS: 36415; 71045; 80048; 80307; 82077; 85025; 87426; 93005; 99285

== ENCOUNTER 2021-12-19 11:04 | Emergency (ER) | payer BC, SELFPAY ==
[2021-12-19 11:05] VITALS: BP 175/92; PULSE 82; RESP 14; TEMP 35.9; BMI 37.7
--- NOTE | 2021-12-19 11:18 | RAD_ITS ---
STUDY: X-RAY CHEST REASON FOR EXAM: Female, 36 years old. CP, covid TECHNIQUE: Single AP portable view of the chest. COMPARISON: August 12, 2021 chest x-ray FINDINGS: There is fairly similar-appearing mild increased interstitial markings in the right greater than left lung. . There is no demonstrated pleural abnormality. Normal size heart. Normal mediastinum and dima. Normal visualized pulmonary arteries. Normal visualized aortic arch and descending thoracic aorta. There are diffuse degenerative changes of the visualized thoracic spine. Normal visualized ribs, clavicles, and shoulders. There is no demonstrated abnormality of the visualized soft tissue structures of the upper abdomen. RAD/Chest 1 View (Portable) IMPRESSION: Stable lung markings. No definitive acute focal infiltrate. Electronically Signed: Gabriella Blancas MD at 12:01 EDT ,
--- NOTE | 2021-12-19 11:19 | EKG12_ITS ---
Test Reason : GEN ILLNESS Blood Pressure : / mmHG Vent. Rate : 077 BPM Atrial Rate : 077 BPM P-R Int : 144 ms QRS Dur : 078 ms QT Int : 392 ms P-R-T Axes : 040 070 025 degrees QTc Int : 443 ms Normal sinus rhythm Normal ECG Confirmed by DINAH BEST, RAVI ([id number]), society editor TASHA HOLT ([id number]) on 12/21/2021 12:42:44 PM Referred By: ALF Confirmed By:RAVI NIX MD
--- NOTE | 2021-12-19 11:20 | EDS_ITS ---
HPI History of Present Illness Chief Complaint: General Illness Detail of Chief Complaint: Chest pain, shortness of breath, anxiety Informant: patient Onset/Context/Timing Onset: Days Context: Gradual Onset Current Severity: Moderate Maximum Severity: Moderate Narrative Narrative: Patient presents secondary to chest pain and shortness of breath with COVID. She states she developed congestion with sore throat on Tuesday. Tuesday she tested positive for COVID. She reports chest pain with shortness of breath. She has cough with clear sputum production. T-max has been around 99. She does admit that her anxiety has been very high and she thinks this is contributing to a lot of her symptoms. She was not vaccinated for COVID. At the time of my exam her O2 sat is 100% on room air. [facility] Medical History Anxiety Depression History of COVID-19 PTSD (post-traumatic stress disorder) Home Medications albuterol sulfate 2 puff INHALATION Q4H PRN PRN 12/19/21 [History Last Taken Unknown] benzonatate 100 mg PO TID PRN PRN 12/19/21 [History Last Taken Unknown] buspirone 15 mg PO BID 12/19/21 [History Last Taken Unknown] fluoxetine 20 mg PO DAILY 12/19/21 [History Last Taken Unknown] lorazepam [Ativan] 0.5 mg PO TID PRN #10 tab 12/19/21 [Rx Last Taken Unknown] Allergy/AdvReac Type Severity Reaction Status Date / Time No Known Allergies Allergy Verified 12/19/21 11:05 Surgical History History of hysterectomy Social History Smoking Status: Current every day smoker tobacco type: cigarettes ROS ROS ED Constitutional Constitutional ED: Reports fever(s), subjective and sweats Eyes Eyes: Denies change in vision ENT ENT ED: Reports sore throat Cardiovascular Cardiovascular: Reports chest pain Respiratory/Chest Respiratory/Chest: Reports cough, dyspnea and sputum Gastrointestinal Gastrointestinal: Denies abdominal pain, diarrhea or vomiting Genitourinary Genitourinary ED: Denies dysuria Musculoskeletal Musculoskeletal: Denies back pain or neck pain Integumentary Denies rash Neurologic Neurologic: Denies headache(s) Psychiatric Psychiatric: Reports anxiety Endocrine Endocrinology: Denies polydipsia or polyuria Allergic/Immunologic Allergic/Immunologic ED: Denies urticaria EXAM Physical Exam Const Vital Signs: 12/19/21 11:05 12/19/21 11:18 Temperature 96.7 F L Temperature Source Temporal Pulse Rate 82 Respiratory Rate 14 Respiratory Effort Normal Non-Labored Respiratory Pattern Normal Blood Pressure 175/92 H Blood Pressure Mean 119 Positive well nourished and well developed General Appearance ED: well developed HEENT Reports moist mucous membranes Eyes PERRL and EOMs intact bilaterally Neck supple Chest Wall inspection of chest normal and palpation of chest normal Resp normal respiratory effort and clear to auscultation bilaterally Cardio regular rate and regular rhythm GI non-tender Palpation: soft Extremity normal to inspection Neuro oriented x3 Sensorium / Orientation: alert Psych Mood & Affect: anxious and tearful Skin no rashes or lesions noted MDM MDM MDM Narrative Medical decision making narrative: Patient placed on registered nurse cardiac telemetry. EKG, chest x-ray, lab work obtained. Patient given IV Ativan to help with anxiety. Lab Data Attestation: I reviewed the patient's lab results. Labs: Laboratory Results - last 24 hr 12/19/21 12/19/21 12/19/21 11:35 11:35 11:35 WBC 8.3 RBC 4.72 Hgb 15.7 H Hct 46.8 MCV 99.2 H MCH 33.3 H MCHC 33.5 RDW Std Deviation 46.8 H RDW Coeff of Marguerite 12.7 Plt Count 298 MPV 9.1 Immature Gran % (Auto) 0.400 Neut % (Auto) 52.9 Lymph % (Auto) 36.7 [place] % (Auto) 8.3 Eos % (Auto) 1.3 Baso % (Auto) 0.4 Absolute Neuts (auto) 4.4 Absolute Lymphs (auto) 3.05 Nucleated RBC % 0 D-Dimer Quant (PE/DVT) 0.37 Sodium 140 Potassium 3.6 Chloride 106 Carbon Dioxide 27.0 Anion Gap 7 BUN 16 Creatinine 0.95 Estim Creat Clear Calc 67.72 Est GFR (MDRD) Af Amer 85 Est GFR (MDRD) Non-Af 70 BUN/Creatinine Ratio 16.8 Glucose 85 Calcium 9.1 Troponin I High Sens < 3 L Radiography Chest X-Ray - ED: 1 View, Read by ED Physician and No Infiltrates Diagnostic Testing: Clinical Impression(s) from Imaging Studies Chest X-Ray 12/19/21 11:18 IMPRESSION: Stable lung markings. No definitive acute focal infiltrate. Electronically Signed: Gabriella Blancas MD at 12:01 EDT , EKG Initial EKG: Attestation: I personally reviewed and interpreted this EKG as follows: Interpretation: Sinus Rhythm (Sinus at 77 with no acute ischemia.) Treatment and Re-Evaluation Narrative: On repeat evaluation patient resting more comfortably. Test results discussed with her. Lab work is unremarkable including a negative D-dimer and negative troponin. Chest x-ray reveals no focal infiltrate per my interpretation as well as radiology. I did note that the patient was recently on prednisone and took her last dose yesterday. This may have worsened her anxiety. She is on BuSpar and Prozac currently. I will write her a short course of Ativan to use as needed to help with anxiety. Return instructions provided. Discharge Plan Triage Chief Complaint: General Illness ED Provider: Lynsey Hernandez Dx/Rx/DC Orders Clinical Impression: COVID-19, Anxiety Instructions: Coronavirus Disease 2019 (COVID-19): Overview, Coronavirus Disease 2019 (COVID-19): Caring for Yourself or Others, ED Anxiety Reaction Prescriptions: New lorazepam [Ativan] 0.5 mg tablet 0.5 mg PO TID PRN (Reason: anxiety) Qty: 10 RF: 0 No Action benzonatate 100 mg capsule 100 mg PO TID PRN PRN (Reason: coughing) RF: 0 albuterol sulfate 90 mcg/actuation HFA aerosol inhaler 2 puff INHALATION Q4H PRN PRN (Reason: Wheezing) RF: 0 fluoxetine 20 mg capsule 20 mg PO DAILY RF: 0 buspirone 15 mg tablet 15 mg PO BID RF: 0 Stand Alone Forms: ED Work / School Excuse Primary Care Provider: Shady Sahni Referrals: Shady Sahni MD [Primary Care Provider] - 1 Week Disposition Disposition: Home, Self Care
[2021-12-19] MEDS: LORazepam 2 MG/ML Syringe 0.5 MG IV (11:30)
[2021-12-19 11:45] LABS: Absolute Lymphocyte Count 3.05 X10^3/uL (0.83-4.51); Absolute Neutrophil Count 4.4 X10^3/uL (2.0-7.7); Basophil# 0.03 X10^3/uL; Basophil% 0.4 % (0-1); Eosinophil# 0.11 X10^3/uL; Eosinophils% 1.3 % (0-5); Hematocrit 46.8 % (37-47); Hemoglobin 15.7 g/dL (12.0-15.0); Lymphocyte # 3.05 X10^3/ul (0.83-4.51); Lymphocyte % 36.7 % (19-41); Mean Corp Hgb Conc 33.5 g/dL (32-36); Mean Corpuscular Hgb 33.3 pg (27.0-32.0); Mean Corpuscular Volume 99.2 fL (81-99); Mean Platelet Vol. 9.1 fl (6.2-12.0); Monocyte# 0.69 X10^3/uL; Monocyte% 8.3 % (0-10); NRBC Flagged by Analyzer 0 % (0-5); Neutrophil % 52.9 % (47-70); Platelet Count 298 K/mm3 (150-450); RBC Distribution Width CV 12.7 % (11.6-14.6); RBC Distribution Width SD 46.8 fl (35.1-43.9); Red Blood Count 4.72 M/mm3 (4.2-5.4); White Blood Count 8.3 K/mm3 (4.4-11.0)
[2021-12-19 12:01] LABS: D-Dimer Quantitative (DVT/PE) 0.37 FEU/ug/m (0.27-0.49)
[2021-12-19 12:02] LABS: Anion Gap 7 (5-15); BUN 16 mg/dL (7-18); BUN/Creat Ratio 16.8 RATIO (10-20); Calcium,Total 9.1 mg/dL (8.5-10.1); Chloride 106 mmol/L (98-107); Creatinine, Serum 0.95 mg/dL (0.55-1.02); EST Glomerular Filtration Rate 70 mL/min (>60); Est Glom Filt Rate - Afr Amer 85 mL/min (>60); Estimated Creatinine Clearance 67.72 ml/min; Glucose 85 mg/dL (74-106); Potassium 3.6 mmol/L (3.5-5.1); Sodium Level 140 mmol/L (136-145); Troponin-I HS < 3 pg/mL (3.0-54.0)
[2021-12-19 12:27] VITALS: BP 150/80; PULSE 80; RESP 18; O2SAT 98
== END 2021-12-19 12:28 | disposition home or self-care (01) ==
PROVIDERS: Emergency Provider Emergency Medicine; PCP Family Medicine; Visit Provider Emergency Medicine
DX: U07.1 COVID-19 (principal); F41.9 Anxiety disorder, unspecified; F17.210 Nicotine dependence, cigarettes, uncomplicated; Z28.310 Unvaccinated for COVID-19; F32.A Depression, unspecified; F43.10 Post-traumatic stress disorder, unspecified; Z79.899 Other long term (current) drug therapy; Z28.9 Immunization not carried out for unspecified reason
CPT/HCPCS: 71045; 80048; 84484; 85025; 85379; 93005; 96374; 99284; A4216

== ENCOUNTER 2022-04-27 10:09 | Emergency (ER) | payer BC, SELFPAY ==
[2022-04-27 10:09] VITALS: BP 148/91; BP 157/92; PULSE 101; PULSE 109; RESP 18; RESP 32; TEMP 36.6; O2SAT 98; BMI 41.0
--- NOTE | 2022-04-27 10:21 | EKG12_ITS ---
Test Reason : CP Blood Pressure : / mmHG Vent. Rate : 088 BPM Atrial Rate : 088 BPM P-R Int : 140 ms QRS Dur : 078 ms QT Int : 378 ms P-R-T Axes : 034 065 030 degrees QTc Int : 457 ms Normal sinus rhythm Normal ECG Confirmed by LOUIS BEST, CESAR ([id number]), editor managing newspaper TASHA HOLT ([id number]) on 04/29/2022 12:57:09 PM Referred By: JESS/LUIS Confirmed By:CESAR MYERS MD
--- NOTE | 2022-04-27 10:22 | EDS_ITS ---
HPI History of Present Illness Chief Complaint: Chest Pain Detail of Chief Complaint: Chest pain and shortness of breath Informant: patient Narrative Narrative: Patient presents the emergency department with complaint of chest discomfort th at feels like somebody sitting on her chest that started 2 hours ago. Patient states she was watching television when this started. Patient feels short of breath. She complains of feeling shaky. Patient states she has had similar episodes like this in the past with anxiety and was seen in the ER for it. Patient takes BuSpar and Prozac. Patient has been on these medications for years and takes them regularly. She does state that there have been increased stressors at home and issues with her . Patient denies feeling suicidal or homicidal. She denies recent travel or surgery. No history of PE or DVT. No history of coronary artery disease. Patient is a smoker. She denies cough or recent illness. Prior similar symptoms: Yes [facility] Medical History Anxiety Depression History of COVID-19 PTSD (post-traumatic stress disorder) Home Medications buspirone 15 mg tablet 15 mg PO BID 12/19/21 [History Last Taken Unknown] fluoxetine 20 mg capsule 20 mg PO DAILY 12/19/21 [History Last Taken Unknown] lorazepam 1 mg tablet (Ativan) 1 mg PO TID PRN anxiety #10 tabs 04/27/22 [Rx Last Taken Unknown] Allergy/AdvReac Type Severity Reaction Status Date / Time No Known Allergies Allergy Verified 04/27/22 10:11 Surgical History History of hysterectomy Social History Smoking Status: Current every day smoker tobacco type: cigarettes ROS ROS ED Review of Systems ROS Unobtainable: other Constitutional Constitutional ED: Reports lethargy; Denies chills, fever(s), sweats or weight loss Eyes Eyes: Denies blurry vision, change in vision or diplopia ENT ENT ED: Denies rhinorrhea or sore throat Cardiovascular Cardiovascular: Reports chest pain and racing heartbeat; Denies orthopnea Respiratory/Chest Respiratory/Chest: Reports dyspnea; Denies cough, dyspnea on exertion, orthopnea or sputum Gastrointestinal Gastrointestinal: Reports nausea and vomiting; Denies abdominal pain or diarrhea Genitourinary Genitourinary ED: Denies dysuria, hematuria or urinary frequency Musculoskeletal Musculoskeletal: Denies arthralgias, back pain, myalgias or neck pain Integumentary Denies abscess, Abrasions or rash Neurologic Neurologic: Denies headache(s) or weakness Psychiatric Psychiatric: Denies anxiety, depression or suicidal thoughts Endocrine Endocrinology: Denies polydipsia, polyphagia or polyuria Hematologic/Lymphatic Hematologic/Lymphatic: Denies easy bleeding, easy bruising or lymphadenopathy Allergic/Immunologic Allergic/Immunologic ED: Denies mouth swelling, tongue swelling or urticaria EXAM Physical Exam Const Vital Signs: 04/27/22 10:09 04/27/22 10:09 04/27/22 10:09 Temperature 97.8 F Temperature Source Temporal Pulse Rate 109 H 101 H Respiratory Rate 18 32 H Respiratory Pattern Normal Blood Pressure 157/92 H 148/91 H Blood Pressure Mean 113 110 Pulse Ox 98 98 Oxygen Delivery Method Room Air Room Air Positive well nourished and well developed General Appearance ED: well developed and NAD HEENT Reports TM's clear and moist mucous membranes normocephalic and atraumatic; Negative for trauma or tenderness Tympanic Membrane ED: Yes TM's clear Eyes PERRL and EOMs intact bilaterally General Eye ED: Negative for pale conjunctiva or scleral icterus Neck no lymphadenopathy, supple and no JVD General: Negative for tenderness Chest Wall inspection of chest normal and palpation of chest normal Chest: Negative for tenderness Resp normal respiratory effort and clear to auscultation bilaterally Effort and Inspection: Negative for respiratory distress or pain with movement Auscultation: Negative for rhonchi, wheezes or diminished lung sounds Cardio regular rate, regular rhythm, S1 normal heart sound, S2 normal heart sound and no murmurs Peripheral Pulses: pulses 2+ throughout GI normal to inspection, nondistended, normoactive bowel sounds, soft to palpation, non-tender, non-distended and no masses Back/Spine no CVA tenderness and no thoracic nor lumbar tenderness Extremity normal to inspection General Extremety ED: Negative for edema General Extremity: Negative for edema Neuro oriented x3, CN's II-XII intact bilaterally, no sensory deficits noted and gait normal Sensorium / Orientation: awake, alert, oriented to person, oriented to place and oriented to time Motor Exam: strength 5/5 throughout and strength abnormal Psych mental status grossly normal Skin no rashes or lesions noted and no wounds MDM MDM MDM Narrative Medical decision making narrative: Patient was given Ativan 1 mg p.o. She did feel improved after treatment. At this point she will be discharged to home with a prescription for Ativan as needed for anxiety. Patient advised to follow-up with primary care physician within next 3 to 5 days. Clinically she is low risk for acute coronary syndrome. Patient is PERC negative. Radiography Diagnostic Testing: Clinical Impression(s) from Imaging Studies Chest X-Ray 04/27/22 10:25 IMPRESSION: Normal x-ray examination of the chest. Electronically Signed: Ji Bloom MD at 10:39 EDT , Chest x-ray obtained interpreted by myself no acute disease process. Radiology in agreement. EKG Initial EKG: Attestation: I personally reviewed and interpreted this EKG as follows: Comments: Sinus rhythm with a ventricular rate of 88 bpm with no acute ST segment changes Discharge Plan Triage Chief Complaint: Chest Pain ED Provider: Antonia Connors Dx/Rx/DC Orders Clinical Impression: Chest pain, Anxiety Instructions: ED Anxiety Reaction, ED Chest Pain, Uncertain Cause Prescriptions: New lorazepam [Ativan] 1 mg tablet 1 mg PO TID PRN (Reason: anxiety) Qty: 10 0RF No Action fluoxetine 20 mg capsule 20 mg PO DAILY Label Comments: TAKE 1 CAPSULE BY MOUTH EVERY DAY buspirone 15 mg tablet 15 mg PO BID Label Comments: TAKE 1 TABLET BY MOUTH TWICE DAILY Primary Care Provider: Shady Sahni Referrals: Shady Sahni MD [Primary Care Provider] - 3-5 Days Disposition Disposition: Home, Self Care
--- NOTE | 2022-04-27 10:25 | RAD_ITS ---
STUDY: X-RAY CHEST REASON FOR EXAM: Female, 36 years old. Chest pain TECHNIQUE: Single AP portable view of the chest. COMPARISON: Comparison is made with prior study dated 12/19/2021. FINDINGS: EKG electrodes are seen. The lungs are clear and expanded. There is no demonstrated pleural abnormality. Normal size heart. Normal mediastinum and dima. Normal visualized pulmonary arteries. Normal visualized aortic arch and descending thoracic aorta. Normal visualized thoracic spine. Normal visualized ribs, clavicles, and shoulders. There is no demonstrated abnormality of the visualized soft tissue structures of the upper abdomen. RAD/Chest 1 View (Portable) IMPRESSION: Normal x-ray examination of the chest. Electronically Signed: Ji Bloom MD at 10:39 EDT ,
[2022-04-27] MEDS: LORazepam 1 MG Tablet PO (10:31)
[2022-04-27 11:22] VITALS: BP 146/94; PULSE 84; RESP 19; O2SAT 95
== END 2022-04-27 12:31 | disposition home or self-care (01) ==
PROVIDERS: Emergency Provider Emergency Medicine; PCP Family Medicine; Visit Provider Emergency Medicine
DX: R07.9 Chest pain, unspecified (principal); F41.9 Anxiety disorder, unspecified; R06.02 Shortness of breath; F43.10 Post-traumatic stress disorder, unspecified; F32.A Depression, unspecified; F17.210 Nicotine dependence, cigarettes, uncomplicated; Z79.899 Other long term (current) drug therapy; Z86.16 Personal history of COVID-19
CPT/HCPCS: 71045; 93005; 99283; A4216

== ENCOUNTER 2022-05-16 23:42 | Emergency (ER) | payer BC, SELFPAY ==
[2022-05-16 23:43] VITALS: BP 145/88; PULSE 91; RESP 18; TEMP 36.7; O2SAT 96; BMI 42.7
--- NOTE | 2022-05-17 00:05 | RAD_ITS ---
EXAM: XR CHEST, 1 VIEW CLINICAL INDICATION: cough TECHNIQUE: Frontal view of the chest. This report was created using fypio report generation technology. COMPARISON: 04/27/2022 FINDINGS: LUNGS AND PLEURAL SPACES: Unremarkable. No consolidation or edema. No pneumothorax. No effusion. HEART: Unremarkable. Cardiac silhouette not enlarged. MEDIASTINUM: Central airways and mediastinal contour are unremarkable. BONES/JOINTS: Unremarkable. SOFT TISSUES: Unremarkable. RAD/Chest 1 View (Portable) IMPRESSION: No radiographic evidence of acute cardiopulmonary disease. Electronically Signed: Zach Loomis MD at 1:22 EDT ,
--- NOTE | 2022-05-17 00:06 | EDS_ITS ---
HPI History of Present Illness Chief Complaint: General Illness Detail of Chief Complaint: Cough and sore throat that started 4 days ago Informant: patient Narrative Narrative: Patient presents the emergency department complaint of a sore throat that started 4 days ago. Patient has a cough. She has had no fever. She denies sick contacts. Patient coughing so hard is making her ribs hurt. Cough is been nonproductive. Patient states that she took a home COVID test and was negative. Patient states she is had COVID x2 and the last time was in July of this year. [facility] Medical History Anxiety Depression History of COVID-19 PTSD (post-traumatic stress disorder) Home Medications buspirone 15 mg tablet 15 mg PO BID 12/19/21 [History Last Taken Unknown] fluoxetine 20 mg capsule 20 mg PO DAILY 12/19/21 [History Last Taken Unknown] lorazepam 1 mg tablet (Ativan) 1 mg PO TID PRN anxiety #10 tabs 04/27/22 [Rx Last Taken Unknown] benzonatate 100 mg capsule 100 mg PO TID PRN cough #20 caps 05/17/22 [Rx Last Taken Unknown] Allergy/AdvReac Type Severity Reaction Status Date / Time No Known Allergies Allergy Verified 04/27/22 10:11 Surgical History History of hysterectomy Social History Smoking Status: Current every day smoker tobacco type: cigarettes ROS ROS ED Review of Systems ROS Unobtainable: other Constitutional Constitutional ED: Reports lethargy; Denies chills, fever(s), sweats or weight loss Eyes Eyes: Denies blurry vision, change in vision or diplopia ENT ENT ED: Reports sore throat; Denies rhinorrhea Cardiovascular Cardiovascular: Denies chest pain, orthopnea or racing heartbeat Respiratory/Chest Respiratory/Chest: Reports cough; Denies dyspnea, dyspnea on exertion, orthopnea or sputum Gastrointestinal Gastrointestinal: Denies abdominal pain, diarrhea, nausea or vomiting Genitourinary Genitourinary ED: Denies dysuria, hematuria or urinary frequency Musculoskeletal Musculoskeletal: Denies arthralgias, back pain, myalgias or neck pain Integumentary Denies abscess, Abrasions or rash Neurologic Neurologic: Denies headache(s) or weakness Psychiatric Psychiatric: Denies anxiety, depression or suicidal thoughts Endocrine Endocrinology: Denies polydipsia, polyphagia or polyuria Hematologic/Lymphatic Hematologic/Lymphatic: Denies easy bleeding, easy bruising or lymphadenopathy Allergic/Immunologic Allergic/Immunologic ED: Denies mouth swelling, tongue swelling or urticaria EXAM Physical Exam Const Vital Signs: 05/16/22 23:43 05/16/22 23:45 Temperature 98.0 F Temperature Source Oral Pulse Rate 91 Respiratory Rate 18 Respiratory Effort Normal Non-Labored Respiratory Pattern Normal Blood Pressure 145/88 H Blood Pressure Mean 107 Pulse Ox 96 Oxygen Delivery Method Room Air Positive well nourished and well developed General Appearance ED: well developed and NAD HEENT Reports TM's clear and moist mucous membranes HEENT Narrative: Mild pharyngeal erythema. No exudates. Uvula midline without trismus. normocephalic and atraumatic; Negative for trauma or tenderness Tympanic Membrane ED: Yes TM's clear Eyes PERRL and EOMs intact bilaterally General Eye ED: Negative for pale conjunctiva or scleral icterus Neck no lymphadenopathy, supple and no JVD General: Negative for tenderness Chest Wall inspection of chest normal and palpation of chest normal Chest: Negative for tenderness Resp normal respiratory effort and clear to auscultation bilaterally Effort and Inspection: Negative for respiratory distress or pain with movement Auscultation: Negative for rhonchi, wheezes or diminished lung sounds Cardio regular rate, regular rhythm, S1 normal heart sound, S2 normal heart sound and no murmurs Peripheral Pulses: pulses 2+ throughout GI normal to inspection, nondistended, normoactive bowel sounds, soft to palpation, non-tender, non-distended and no masses Back/Spine no CVA tenderness and no thoracic nor lumbar tenderness Extremity normal to inspection General Extremety ED: Negative for edema General Extremity: Negative for edema Neuro oriented x3, CN's II-XII intact bilaterally, no sensory deficits noted and gait normal Sensorium / Orientation: awake, alert, oriented to person, oriented to place and oriented to time Motor Exam: strength 5/5 throughout and strength abnormal Psych mental status grossly normal Skin no rashes or lesions noted and no wounds MDM MDM MDM Narrative Medical decision making narrative: Patient had a negative strep screen as well as negative influenza and COVID screens. Chest x-ray obtained by myself 1 view interpreted by myself as no acute disease process. This point I suspect she likely has a viral URI. Recommended symptomatic care with ibuprofen and Tylenol and I will write her prescription for Tessalon Perles. Lab Data Attestation: I reviewed the patient's lab results. Radiography Chest X-Ray - ED: 1 View Diagnostic Testin view chest strip interpreted by myself no acute disease process. Official report from radiology pending. Discharge Plan Triage Chief Complaint: General Illness ED Provider: Antonia Connors Dx/Rx/DC Orders Clinical Impression: Viral URI Instructions: ED URI, Viral, No Abx (Adult) Prescriptions: New benzonatate 100 mg capsule 100 mg PO TID PRN (Reason: cough) Qty: 20 0RF No Action fluoxetine 20 mg capsule 20 mg PO DAILY Label Comments: TAKE 1 CAPSULE BY MOUTH EVERY DAY buspirone 15 mg tablet 15 mg PO BID Label Comments: TAKE 1 TABLET BY MOUTH TWICE DAILY lorazepam [Ativan] 1 mg tablet 1 mg PO TID PRN (Reason: anxiety) Qty: 10 0RF Primary Care Provider: Shady Sahni Referrals: Shady Sahni MD [Primary Care Provider] - 3-5 Days Disposition Disposition: Home, Self Care
[2022-05-17] MEDS: Benzonatate 100 MG Capsule PO (01:18)
[2022-05-17 01:21] VITALS: BP 145/88; PULSE 78; RESP 18; O2SAT 100
== END 2022-05-17 01:22 | disposition home or self-care (01) ==
PROVIDERS: Emergency Provider Emergency Medicine; PCP Family Medicine; Visit Provider Emergency Medicine
DX: J06.9 Acute upper respiratory infection, unspecified (principal); F17.210 Nicotine dependence, cigarettes, uncomplicated; Z86.16 Personal history of COVID-19; F32.A Depression, unspecified; F41.9 Anxiety disorder, unspecified
CPT/HCPCS: 71045; 87428; 87880; 99283; A4216

== ENCOUNTER 2022-07-07 08:28 | Emergency (ER) | payer BC, SELFPAY ==
[2022-07-07 08:29] VITALS: BP 134/87; PULSE 86; RESP 16; TEMP 36.4; O2SAT 98; BMI 40.7
--- NOTE | 2022-07-07 09:08 | EX.ED.UPPERE ---
HPI History of Present Illness Chief Complaint: Upper Extremity Injury Informant: patient Narrative Narrative: [id number] female presents progressive right shoulder pain over the last 2 weeks. Symptoms worse with overhead movement. Started new job a month ago. No fevers. No direct traumas. Denies history of gastric ulcers or kidney injury. She is Tylenol with no relief. Prior similar symptoms: No PFSH PFSH Medical History Anxiety Depression History of COVID-19 PTSD (post-traumatic stress disorder) Home Medications ibuprofen 600 mg tablet 600 mg PO 4X/DAY PRN Pain Or Fever #20 tabs 07/07/22 [Rx Last Taken Unknown] Allergy/AdvReac Type Severity Reaction Status Date / Time No Known Allergies Allergy Verified 07/07/22 08:30 Surgical History History of hysterectomy Social History Smoking Status: Current every day smoker tobacco type: cigarettes ROS ROS ED Constitutional Constitutional ED: Denies chills, fever(s) or sweats Eyes Eyes: Denies change in vision ENT ENT ED: Denies dysphagia or sore throat Cardiovascular Cardiovascular: Denies chest pain, leg edema, palpitations or racing heartbeat Respiratory/Chest Respiratory/Chest: Denies cough, dyspnea or dyspnea on exertion Gastrointestinal Gastrointestinal: Denies abdominal pain, diarrhea, nausea or vomiting Genitourinary Genitourinary ED: Denies dysuria, hematuria or urinary frequency Musculoskeletal Musculoskeletal: Reports extremity pain; Denies back pain or neck pain Integumentary Denies rash or wounds Neurologic Neurologic: Denies headache(s), paresthesias or weakness EXAM Physical Exam Const Vital Signs: 07/07/22 08:29 Temperature 97.6 F L Temperature Source Temporal Pulse Rate 86 Respiratory Rate 16 Blood Pressure 134/87 H Blood Pressure Mean 102 Pulse Ox 98 Oxygen Delivery Method Room Air Positive well nourished and well developed General Appearance ED: well developed and NAD HEENT Reports moist mucous membranes normocephalic and atraumatic Eyes PERRL, EOMs intact bilaterally and conjunctivae normal General Eye ED: Yes normal appearance of both eyes Neck no lymphadenopathy and supple General: Negative for tenderness Chest Wall Chest: Negative for tenderness Resp normal respiratory effort and normal air movement Effort and Inspection: symmetric chest movement; Negative for respiratory distress Cardio regular rate, regular rhythm and no murmurs Peripheral Pulses: pulses 2+ throughout GI normal to inspection, nondistended, normoactive bowel sounds and non-tender Palpation: Negative for guarding or rebound tenderness present Back/Spine no CVA tenderness and no thoracic nor lumbar tenderness Extremity Extremity Narrative: Right upper extremity: Positive empty can positive speeds test. No deformities of the shoulder. No rash. No pain with external or internal rotation of the shoulder against resistance. Neurovascular intact distally. General Extremety ED: Negative for edema or tenderness General Extremity: Negative for edema Neuro oriented x3 and no sensory deficits noted Sensorium / Orientation: awake and alert Skin no rashes or lesions noted and no wounds MDM MDM MDM Narrative Medical decision making narrative: Vital signs stable nontoxic. Patient exam concerns for long head biceps tendinitis along with supraspinatus rotator cuff strain. No deformities. Discussed symptomatic treatment this time. Motrin started. Prescription written. She will follow-up with her PCP. She did not want to follow that Worker's Comp. at this time therefore we will give 2-day work prescription. All questions were answered. Discharge Plan Triage Chief Complaint: Upper Extremity Injury ED Provider: Andrey Lawton Dx/Rx/DC Orders Clinical Impression: Biceps tendinitis of right shoulder, Strain of muscle(s) and tendon(s) of the rotator cuff of right shoulder, initial encounter Instructions: Biceps Tendonitis, Rotator Cuff Tear Prescriptions: New ibuprofen 600 mg tablet 600 mg PO 4X/DAY PRN (Reason: Pain Or Fever) Qty: 20 0RF Primary Care Provider: Shady Sahni Referrals: Shady Sahni MD [Primary Care Provider] - 3-5 Days Activity Restrictions/Additional Instructions: Exam concerns for long head biceps tendinitis along with supraspinatus rotator cuff strain. Take ibuprofen as prescribed. Follow-up with your doctor. Disposition Disposition: Home, Self Care Discharge Date/Time: 07/07/22 09:28
[2022-07-07] MEDS: Ibuprofen 600 MG Tablet PO (09:15)
== END 2022-07-07 09:28 | disposition home or self-care (01) ==
PROVIDERS: Emergency Provider Emergency Medicine; PCP Family Medicine; Visit Provider Emergency Medicine
DX: M75.21 Bicipital tendinitis, right shoulder (principal); S46.011A Strain of muscle(s) and tendon(s) of the rotator cuff of right shoulder, initial encounter; F17.210 Nicotine dependence, cigarettes, uncomplicated; X58.XXXA Exposure to other specified factors, initial encounter
CPT/HCPCS: 99282

== ENCOUNTER 2022-09-03 10:33 | Emergency (ER) | payer BC, SELFPAY ==
[2022-09-03 10:34] VITALS: BP 159/108; PULSE 101; RESP 20; TEMP 36.3; O2SAT 99; BMI 41.6
--- NOTE | 2022-09-03 11:39 | CM.ED ---
Social Work Note Referral Source: ROSIBEL Palafox Referral Reason: anxiety RN Vivienne met with MANGO and reviewed symptoms and concerns regarding anxiety as patient is recently . Patient is receiving care from a psychiatrist at [facility] and reports no SI. MANGO met with patient and patient's guest and introduced herself and role as [facility] Compliance Review Specialist. SW requested permissions to speak to patient with guest present, patient identified the guest as her daughter and was in agreement. SW inquired about recent events, patient's support and current symptoms. Patient briefly discussed stressors including a decent divorce and reported she receives psychiatric services with [facility] at [facility]. Patient reports she has been working with him for about a year but only does telehealth appointments. SW assisted patient in completing the [place] Anxiety Rating Scale; patient scored indicated severe anxiety. SW educated patient on her score and possible impacts of anxiety. SW reviewed list of local counseling agencies, crisis contact information as well as information for a new psychiatrist to the area, Dr. Collier. SW also provided patient with information regarding [facility] Behavioral Health Services and [facility] resource list. Patient was receptive and appreciative towards lists. Patient states she works so she does not want a referral for Behavioral Health Services at this time, but did accept information regarding their programs. Patient voiced no other MH needs but inquired about a nurse to have something for acid reflex. MANGO to inform nurse, SW remains available if other needs arise. MANGO informed ROSIBEL Ortiz of patient's needs, RN to follow up with patient. Rody Messer FL[employer] TILE PRESS OPERATOR, GIRMA
[2022-09-03] MEDS: Famotidine 20 MG Tablet PO (11:55)
[2022-09-03] MEDS: Ondansetron ODT 4 MG Tablet PO (11:55)
--- NOTE | 2022-09-03 14:31 | EX.ED.VIS.PS ---
HPI HPI - Psych History of Present Illness Chief Complaint: Anxiety Narrative Narrative: 36-year-old female presenting with anxiety and dyspepsia. Patient states that she has been had both in the past. She states that this has been a difficult week for her because recently but that was worse with her . She states she does have Ativan and took Ativan about 30 minutes prior to arrival. She is complaining of GERD symptoms which are chronic. She states currently her symptoms started to improve. She sees the counseling center. PFSH PFSH Medical History Anxiety Depression History of COVID-19 PTSD (post-traumatic stress disorder) Home Medications ibuprofen 600 mg tablet 600 mg PO 4X/DAY PRN Pain Or Fever #20 tabs 07/07/22 [Rx Last Taken Unknown] famotidine 20 mg tablet (Pepcid) 20 mg PO DAILY PRN acid reflux #14 tabs 09/03/22 [Rx Last Taken Unknown] omeprazole 40 mg capsule,delayed release 40 mg PO DAILY #30 caps 09/03/22 [Rx Last Taken Unknown] ondansetron 4 mg disintegrating tablet 4 mg PO Q8H PRN PRN Nausea #14 tabs 09/03/22 [Rx Last Taken Unknown] Allergy/AdvReac Type Severity Reaction Status Date / Time No Known Allergies Allergy Verified 09/03/22 10:36 Surgical History History of hysterectomy Social History Smoking Status: Current every day smoker tobacco type: cigarettes ROS ROS ED Constitutional Constitutional ED: Denies chills, fever(s) or sweats Eyes Eyes: Denies blurry vision or change in vision ENT ENT ED: Denies ear pain or sore throat Cardiovascular Cardiovascular: Denies chest pain, palpitations or racing heartbeat Respiratory/Chest Respiratory/Chest: Denies cough, dyspnea or sputum Gastrointestinal Gastrointestinal: Denies abdominal pain, constipation, diarrhea, nausea or vomiting Genitourinary Genitourinary ED: Denies dysuria, hematuria or urinary frequency Musculoskeletal Musculoskeletal: Denies arthralgias, myalgias or neck pain Integumentary Denies abscess, Abrasions or rash Neurologic Neurologic: Denies headache(s), paresthesias or weakness Psychiatric Psychiatric: Reports anxiety and depression; Denies suicidal ideation or suicidal thoughts Endocrine Endocrinology: Denies polydipsia or polyuria EXAM Physical Exam Const Vital Signs: 09/03/22 10:34 Temperature 97.4 F L Temperature Source Temporal Pulse Rate 101 H Respiratory Rate 20 H Blood Pressure 159/108 H Blood Pressure Mean 125 Pulse Ox 99 Oxygen Delivery Method Room Air Positive well nourished General Appearance ED: NAD HEENT Reports moist mucous membranes normocephalic and atraumatic Eyes PERRL and EOMs intact bilaterally Neck no lymphadenopathy Resp normal respiratory effort Auscultation: Negative for rales, rhonchi or wheezes Cardio Rhythm: regular rhythm GI non-tender and non-distended Palpation: soft Extremity normal to inspection General Extremety ED: Yes edema General Extremity: edema Neuro oriented x3 and CN's II-XII intact bilaterally Motor Exam: strength 5/5 throughout Psych mental status grossly normal Attitude: calm and engaged Activity / Motor Behavior: appropriate eye contact Speech: normal speech Mood & Affect: anxious Thought Process: normal thought process Thought Content: normal thought content Attention / Concentration: attention grossly intact Memory / Cognition: memory grossly intact Insight: insight good Judgement: judgement good MDM MDM MDM Narrative Medical decision making narrative: Patient presenting with anxiety. She states her anxiety has been very high this week. She recently went through a divorce with her . She states this is stressing her out. She has Ativan that she took prior to arrival. Starting to help currently. She is complaining of acid reflux and request something. She was given Pepcid here in the emergency room. Patient feel she stable for discharge home and follow-up with the counseling center at this point. I will put her on omeprazole and give her some Zofran as needed. Impression: 1. Anxiety 2. GERD Discharge Plan Triage Chief Complaint: Anxiety ED Provider: Ernesto Ayoub Dx/Rx/DC Orders Prescriptions: New omeprazole 40 mg capsule,delayed release(DR/EC) 40 mg PO DAILY Qty: 30 0RF ondansetron 4 mg tablet,disintegrating 4 mg PO Q8H PRN PRN (Reason: Nausea) Qty: 14 0RF famotidine [Pepcid] 20 mg tablet 20 mg PO DAILY PRN (Reason: acid reflux) Qty: 14 0RF No Action ibuprofen 600 mg tablet 600 mg PO 4X/DAY PRN (Reason: Pain Or Fever) Qty: 20 0RF Stand Alone Forms: ED Work / School Excuse Primary Care Provider: Shady Sahni Referrals: Shady Sahni MD [Primary Care Provider] - Disposition Disposition: Home, Self Care Discharge Date/Time: 09/03/22 11:59
== END 2022-09-03 11:59 | disposition home or self-care (01) ==
PROVIDERS: Emergency Provider Student in an Organized Health Care Education/Training Program; PCP Family Medicine; Visit Provider Student in an Organized Health Care Education/Training Program
DX: F41.9 Anxiety disorder, unspecified (principal); K21.9 Gastro-esophageal reflux disease without esophagitis; F17.210 Nicotine dependence, cigarettes, uncomplicated; F32.A Depression, unspecified
CPT/HCPCS: 99283

== ENCOUNTER 2022-10-17 09:39 | Emergency (ER) | payer BC, MEDICAID, SELFPAY ==
[2022-10-17 09:39] VITALS: BP 141/102; PULSE 98; RESP 16; TEMP 36.3; O2SAT 100; BMI 42.5
--- NOTE | 2022-10-17 10:18 | EX.ED.DYSGE1 ---
HPI <JOSE Mclain - Last Filed: 10/17/22 21:35> History of Present Illness Chief Complaint: Abd Pain Narrative Narrative: Presenting today with abdominal pain starting at her bellybutton that radiates down to the middle of her pelvis. States that she feels a lot of pelvic pressure when urinating, walking up the steps, or bending over. She states she feels like something is coming out of her vagina. She denies any fever, chills, nausea, vomiting, diarrhea, and constipation. She states that she has had a partial hysterectomy and has had a . PFSH <JOSE Mclain - Last Filed: 10/17/22 21:35> PFSH Medical History Anxiety Depression History of COVID-19 Physical exam, pre-employment PTSD (post-traumatic stress disorder) Home Medications ibuprofen 600 mg tablet 600 mg PO 4X/DAY PRN Pain Or Fever #20 tabs 07/07/22 [Rx Last Taken Unknown] famotidine 20 mg tablet (Pepcid) 20 mg PO DAILY PRN acid reflux #14 tabs 09/03/22 [Rx Last Taken Unknown] omeprazole 40 mg capsule,delayed release 40 mg PO DAILY #30 caps 09/03/22 [Rx Last Taken Unknown] ondansetron 4 mg disintegrating tablet 4 mg PO Q8H PRN PRN Nausea #14 tabs 09/03/22 [Rx Last Taken Unknown] Allergy/AdvReac Type Severity Reaction Status Date / Time No Known Allergies Allergy Verified 10/17/22 09:41 Surgical History History of hysterectomy Social History Smoking Status: Current every day smoker tobacco type: cigarettes ROS <JOSE Mclain - Last Filed: 10/17/22 21:35> ROS ED Constitutional Constitutional ED: Denies chills, fever(s) or sweats Eyes Eyes: Denies blurry vision or diplopia Cardiovascular Cardiovascular: Denies chest pain or palpitations Respiratory/Chest Respiratory/Chest: Denies cough or dyspnea Gastrointestinal Gastrointestinal: Reports abdominal pain; Denies constipation, diarrhea, nausea or vomiting Genitourinary Genitourinary ED: Denies dysuria, hematuria or urinary urgency Musculoskeletal Musculoskeletal: Denies arthralgias, back pain, myalgias or neck pain Integumentary Denies abscess, Abrasions or rash Neurologic Neurologic: Denies confusion, dizziness or paresthesias Psychiatric Psychiatric: Denies anxiety, depression, suicidal ideation or suicidal thoughts EXAM <JOSE Mclain - Last Filed: 10/17/22 21:35> Physical Exam Const Vital Signs: 10/17/22 09:39 10/17/22 11:46 10/17/22 13:11 Temperature 97.4 F L Temperature Source Temporal Pulse Rate 98 72 78 Respiratory Rate 16 16 18 Blood Pressure 141/102 H 134/89 H 145/57 H Blood Pressure Mean 115 104 86 Pulse Ox 100 99 96 Oxygen Delivery Method Room Air Room Air Room Air 10/17/22 15:20 Temperature Temperature Source Pulse Rate 88 Respiratory Rate 16 Blood Pressure 141/88 H Blood Pressure Mean Pulse Ox 99 Oxygen Delivery Method Positive well nourished, well developed and no apparent distress General Appearance ED: well developed HEENT Reports normocephalic and head/scalp atraumatic Mouth ED: Yes moist mucous membranes normal Eyes PERRL and EOMs intact bilaterally Neck full ROM and supple Chest Wall inspection of chest normal Resp normal respiratory effort and clear to auscultation bilaterally Cardio regular rate and regular rhythm GI soft to palpation, non-distended and no masses GI Narrative: Tenderness to palpation around patient's umbilicus as well as to her mid pelvis. Palpation: Negative for guarding Narrative: Pelvic examination performed, I am not visualizing a cystocele, rectocele, or vaginal prolapse. However, patient's bladder is hard to palpation. There is no adnexal tenderness. Back/Spine normal ROM and normal to inspection Extremity normal to inspection and full ROM Neuro oriented x3, CN's II-XII intact bilaterally, moves all extremities, no focal motor deficits and no sensory deficits noted Sensorium / Orientation: awake and alert Psych mental status grossly normal and thought process normal Skin no rashes or lesions noted and no wounds <Dr. Ernesto Ayoub DO - Last Filed: 10/17/22 21:43> Physical Exam Const Vital Signs: 10/17/22 09:39 10/17/22 11:46 10/17/22 13:11 Temperature 97.4 F L Temperature Source Temporal Pulse Rate 98 72 78 Respiratory Rate 16 16 18 Blood Pressure 141/102 H 134/89 H 145/57 H Blood Pressure Mean 115 104 86 Pulse Ox 100 99 96 Oxygen Delivery Method Room Air Room Air Room Air 10/17/22 15:20 Temperature Temperature Source Pulse Rate 88 Respiratory Rate 16 Blood Pressure 141/88 H Blood Pressure Mean Pulse Ox 99 Oxygen Delivery Method [facility] <JOSE Mclain - Last Filed: 10/17/22 21:35> [facility] Narrative Medical decision making narrative: Patient presenting today with pelvic pain and pressure that started yesterday. She states it feels like something is coming out of her vagina, the pain is worsened when she tries to lift something, bend over, walk up the steps. Patient has been given Toradol for her pain. Labs have been obtained to rule out leukocytosis, anemia, evaluate kidney function, rule out electrolyte abnormality.UA obtained to rule out acute cystitis. Exam was performed and I am not seeing a cystocele, rectocele, or vaginal prolapse. Her bladder is slightly distended but she has no difficulty urinating. Transvaginal ultrasound obtained and reveals no abnormality. She states that she had a partial hysterectomy but still has both her ovaries. CT scan of the abdomen and pelvis obtained and shows umbilical hernia without any other abnormality. 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 I think that patient would benefit from seeing a naval aircrewman tactical helicopter and I have given her a referral. On reexamination she is feeling better with the Toradol. Labs are unremarkable, patient does not have a UTI. Patient will be discharged home in stable condition. At this time, her pelvic pain is unknown etiology. She is comfortable with plan. Lab Data Attestation: I reviewed the patient's lab results. Lab results narrative: CBC unremarkable, BMP anion gap 3, chloride 110 Labs: Laboratory Results - last 24 hr 10/17/22 10/17/22 10/17/22 10:43 11:43 11:43 WBC 7.7 RBC 4.54 Hgb 14.9 Hct 44.3 MCV 97.6 MCH 32.8 H MCHC 33.6 RDW Std Deviation 45.1 H RDW Coeff of Marguerite 12.5 Plt Count 313 MPV 9.1 Immature Gran % (Auto) 0.400 Neut % (Auto) 74.7 H Lymph % (Auto) 15.8 L [place] % (Auto) 6.8 Eos % (Auto) 1.8 Baso % (Auto) 0.5 Absolute Neuts (auto) 5.7 Absolute Lymphs (auto) 1.21 Nucleated RBC % 0 Sodium 138 Potassium 4.0 Chloride 110 H Carbon Dioxide 25.0 Anion Gap 3 L BUN 12 Creatinine 0.68 Estim Creat Clear Calc 94.61 Est GFR (MDRD) Af Amer 124 Est GFR (MDRD) Non-Af 103 BUN/Creatinine Ratio 17.5 Glucose 107 H Calcium 8.6 Urine Color Yellow Urine Clarity Clear Urine pH 8.0 Ur Specific [place] 1.015 Urine Protein 15 H Urine Glucose (UA) Normal Urine Ketones Negative Urine Occult Blood 10 H Urine Nitrite Negative Urine Bilirubin Negative Urine Urobilinogen Normal Ur Leukocyte Esterase 25 H Urine RBC 0 SEEN Urine WBC 0 SEEN Ur Squamous Epith Cells 5-10 SEEN Urine Bacteria 0 SEEN Urine Mucus 0 SEEN Radiography Diagnostic Testing: Clinical Impression(s) from Imaging Studies Transvaginal US 10/17/22 10:36 IMPRESSION: 1. No demonstrated abnormality on this study. Electronically Signed: Venancio Alvarez MD at 12:35 EDT , Abdomen/Pelvis CT 10/17/22 12:39 IMPRESSION: (NOT LISTED IN ORDER OF SIGNIFICANCE) There is absence of the uterus consistent with a prior hysterectomy. There is an umbilical hernia containing fat. Other findings as above. Electronically Signed: Zach Shah MD at 14:31 EDT , CT also reviewed and interpreted by attending ED physician. <Dr. Ernesto Ayoub, DO - Last Filed: 10/17/22 21:43> [facility] Narrative Medical decision making narrative: Patient presenting today with pelvic pain and pressure that started yesterday. She states it feels like something is coming out of her vagina, the pain is worsened when she tries to lift something, bend over, walk up the steps. Patient has been given Toradol for her pain. Labs have been obtained to rule out leukocytosis, anemia, evaluate kidney function, rule out electrolyte abnormality.UA obtained to rule out acute cystitis. Exam was performed and I am not seeing a cystocele, rectocele, or vaginal prolapse. Her bladder is slightly distended but she has no difficulty urinating. Transvaginal ultrasound obtained and reveals no abnormality. She states that she had a partial hysterectomy but still has both her ovaries. CT scan of the abdomen and pelvis obtained and shows umbilical hernia without any other abnormality. 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 I think that patient would benefit from seeing a naval aircrewman tactical helicopter and I have given her a referral. On reexamination she is feeling better with the Toradol. Labs are unremarkable, patient does not have a UTI. Patient will be discharged home in stable condition. At this time, her pelvic pain is unknown etiology. She is comfortable with plan. This patient was seen with a PA/SUPPLIER QUALITY MANAGER Individually assessed they patient including history and physical. I have reviewed everything on the chart that is available and agree with the documentation provided by the PA/SUPPLIER QUALITY MANAGER including discussion about the assessment, treatment plan, discussion, and return precautions. Patient presenting with pelvic pain. Toradol was given helped her pain. CBC and BMP unremarkable. Vaginal exam unremarkable. Urinalysis negative for infection. Ultrasound initially ordered and shows no acute abnormality. Patient had a CT scan which also shows no specific acute abnormality. Patient feeling improved after Toradol treatment. I feel she stable for discharge at this time. Lab Data Labs: Laboratory Results - last 24 hr 10/17/22 10/17/22 10/17/22 10:43 11:43 11:43 WBC 7.7 RBC 4.54 Hgb 14.9 Hct 44.3 MCV 97.6 MCH 32.8 H MCHC 33.6 RDW Std Deviation 45.1 H RDW Coeff of Marguerite 12.5 Plt Count 313 MPV 9.1 Immature Gran % (Auto) 0.400 Neut % (Auto) 74.7 H Lymph % (Auto) 15.8 L [place] % (Auto) 6.8 Eos % (Auto) 1.8 Baso % (Auto) 0.5 Absolute Neuts (auto) 5.7 Absolute Lymphs (auto) 1.21 Nucleated RBC % 0 Sodium 138 Potassium 4.0 Chloride 110 H Carbon Dioxide 25.0 Anion Gap 3 L BUN 12 Creatinine 0.68 Estim Creat Clear Calc 94.61 Est GFR (MDRD) Af Amer 124 Est GFR (MDRD) Non-Af 103 BUN/Creatinine Ratio 17.5 Glucose 107 H Calcium 8.6 Urine Color Yellow Urine Clarity Clear Urine pH 8.0 Ur Specific [place] 1.015 Urine Protein 15 H Urine Glucose (UA) Normal Urine Ketones Negative Urine Occult Blood 10 H Urine Nitrite Negative Urine Bilirubin Negative Urine Urobilinogen Normal Ur Leukocyte Esterase 25 H Urine RBC 0 SEEN Urine WBC 0 SEEN Ur Squamous Epith Cells 5-10 SEEN Urine Bacteria 0 SEEN Urine Mucus 0 SEEN Radiography Diagnostic Testing: Clinical Impression(s) from Imaging Studies Transvaginal US 10/17/22 10:36 IMPRESSION: 1. No demonstrated abnormality on this study. Electronically Signed: Venancio Alvarez MD at 12:35 EDT , Abdomen/Pelvis CT 10/17/22 12:39 IMPRESSION: (NOT LISTED IN ORDER OF SIGNIFICANCE) There is absence of the uterus consistent with a prior hysterectomy. There is an umbilical hernia containing fat. Other findings as above. Electronically Signed: Zach Shah MD at 14:31 EDT , Discharge Plan Triage Chief Complaint: Abd Pain ED Midlevel Provider: Alessia Souza ED Provider: Ernesto Ayoub Dx/Rx/DC Orders Clinical Impression: Pelvic pain Instructions: ED Pelvic Pain, Unknown Cause Prescriptions: No Action ibuprofen 600 mg tablet 600 mg PO 4X/DAY PRN (Reason: Pain Or Fever) Qty: 20 0RF omeprazole 40 mg capsule,delayed release(DR/EC) 40 mg PO DAILY Qty: 30 0RF ondansetron 4 mg tablet,disintegrating 4 mg PO Q8H PRN PRN (Reason: Nausea) Qty: 14 0RF famotidine [Pepcid] 20 mg tablet 20 mg PO DAILY PRN (Reason: acid reflux) Qty: 14 0RF Primary Care Provider: Shady Sahni Referrals: Meghann Fernandez MD [Med Staff - Active Staff] - 3-5 Days Shady Sahni MD [Primary Care Provider] - Activity Restrictions/Additional Instructions: Alternate Tylenol and ibuprofen for your pain. Follow-up with the naval aircrewman tactical helicopter. Return for any worsening of your symptoms. Disposition Disposition: Home, Self Care Discharge Date/Time: 10/17/22 15:21
--- NOTE | 2022-10-17 10:36 | US_ITS ---
PROCEDURE: ULTRASOUND OF THE FEMALE PELVIS - COMPLETE CLINICAL: Female, 36 years old. pelvic pain - s/p hytserectomy TECHNIQUE: Transabdominal and Transvaginal COMPARISON: CT of abdomen and pelvis dated October 30, 2018 FINDINGS: Prior hysterectomy. The right ovary is non-visualized. There is no visualized right adnexal mass or complex lesion. The left ovary is non-visualized. There is no visualized left adnexal mass or complex lesion. There is no fluid in the cul-de-sac. US/Transvaginal Non- IMPRESSION: 1. No demonstrated abnormality on this study. Electronically Signed: Venancio Alvarez MD at 12:35 EDT ,
[2022-10-17 10:48] LABS: Bacteria 0 SEEN /hpf (None Seen); Mucous, Urine 0 SEEN /hpf (<or=2+); Red Blood Cells-Urine 0 SEEN /hpf (0-5); White Blood Cells 0 SEEN /hpf (0-5)
[2022-10-17 10:54] LABS: Color, Urine Yellow (Yellow); Glucose, Dipstick Normal (Normal); Ketone-Dipstick Negative (Negative); Leukocyte Esterase-Dipstick 25 /ul (Negative); Nitrite-Dipstick Negative (Negative); Occult Blood-Urine 10 /ul (Negative); Protein-Dipstick 15 mg/dl (Negative); Specific Gravity, Urine 1.015 (1.002-1.030); Urine Bilirubin Dipstick Negative (Negative); Urine Clarity Clear (Clear); Urine Urobilinogen Normal (Normal)
[2022-10-17 11:41] LABS: Squamous Epithelial Cells - UA 5-10 SEEN /hpf (5-10)
[2022-10-17 11:46] VITALS: BP 134/89; PULSE 72; RESP 16; O2SAT 99
[2022-10-17] MEDS: Ketorolac 15 MG/ML Vial IV (11:47)
[2022-10-17 11:53] LABS: Absolute Lymphocyte Count 1.21 X10^3/uL (0.83-4.51); Absolute Neutrophil Count 5.7 X10^3/uL (2.0-7.7); Basophil# 0.04 X10^3/uL; Basophil% 0.5 % (0-1); Eosinophil# 0.14 X10^3/uL; Eosinophils% 1.8 % (0-5); Hematocrit 44.3 % (37-47); Hemoglobin 14.9 g/dL (12.0-15.0); Lymphocyte # 1.21 X10^3/ul (0.83-4.51); Lymphocyte % 15.8 % (19-41); Mean Corp Hgb Conc 33.6 g/dL (32-36); Mean Corpuscular Hgb 32.8 pg (27.0-32.0); Mean Corpuscular Volume 97.6 fL (81-99); Mean Platelet Vol. 9.1 fl (6.2-12.0); Monocyte# 0.52 X10^3/uL; Monocyte% 6.8 % (0-10); NRBC Flagged by Analyzer 0 % (0-5); Neutrophil # 5.71 X10^3/uL (2.7-7.7); Neutrophil % 74.7 % (47-70); Platelet Count 313 K/mm3 (150-450); RBC Distribution Width CV 12.5 % (11.6-14.6); RBC Distribution Width SD 45.1 fl (35.1-43.9); Red Blood Count 4.54 M/mm3 (4.2-5.4); White Blood Count 7.7 K/mm3 (4.4-11.0)
[2022-10-17 12:03] LABS: Anion Gap 3 (5-15); BUN 12 mg/dL (7-18); BUN/Creat Ratio 17.5 RATIO (10-20); Calcium,Total 8.6 mg/dL (8.5-10.1); Chloride 110 mmol/L (98-107); Creatinine, Serum 0.68 mg/dL (0.55-1.02); EST Glomerular Filtration Rate 103 mL/min (>60); Est Glom Filt Rate - Afr Amer 124 mL/min (>60); Estimated Creatinine Clearance 94.61 ml/min; Glucose 107 mg/dL (74-106); Sodium Level 138 mmol/L (136-145)
--- NOTE | 2022-10-17 12:39 | CT_ITS ---
STUDY: CT Abdomen And Pelvis W/ Contrast Injection 10/17/2022 2:28 PM REASON FOR EXAM: Female, 36 years old. ABDOMINAL PAIN pelvic pain TECHNIQUE: Transaxial images were obtained without oral contrast, and with IV 100mL [id number]-370 intravenous contrast. Individualized dose optimization techniques were used for this CT. COMPARISON: 10.30.18. FINDINGS: The visualized lung bases are unremarkable. The visualized portions of the heart are within normal limits. Unremarkable liver. Unremarkable gallbladder and extrahepatic biliary system. Unremarkable spleen. Unremarkable pancreas. Unremarkable bilateral adrenal glands. No acute findings of the right kidney. No acute findings of the left kidney. Unremarkable visualized stomach. Unremarkable small intestine. Unremarkable colon. The appendix is visualized and appears unremarkable. There are no acute findings of the abdominal aorta. Unremarkable inferior vena cava. Subcentimeter mesenteric lymph nodes. Unremarkable urinary bladder. There is absence of the uterus consistent with a prior hysterectomy. There is an umbilical hernia containing fat. There are diffuse degenerative changes of the partially visualized thoracic spine. CT/Abdomen/Pelvis W IV Cont ONLY IMPRESSION: (NOT LISTED IN ORDER OF SIGNIFICANCE) There is absence of the uterus consistent with a prior hysterectomy. There is an umbilical hernia containing fat. Other findings as above. Electronically Signed: Zach Shah MD at 14:31 EDT ,
[2022-10-17 13:11] VITALS: BP 145/57; PULSE 78; RESP 18; O2SAT 96
[2022-10-17] MEDS: Ibuprofen 600 MG Tablet PO (15:16)
[2022-10-17 15:20] VITALS: BP 141/88; PULSE 88; RESP 16; O2SAT 99
== END 2022-10-17 15:21 | disposition home or self-care (01) ==
PROVIDERS: Physician Assistant; Emergency Provider Student in an Organized Health Care Education/Training Program; PCP Family Medicine; Visit Provider Student in an Organized Health Care Education/Training Program
DX: R10.9 Unspecified abdominal pain (principal); R10.2 Pelvic and perineal pain; F17.210 Nicotine dependence, cigarettes, uncomplicated; Z90.710 Acquired absence of both cervix and uterus
CPT/HCPCS: 74177; 76830; 80048; 81001; 85025; 96374; 99284; Q9967; A4216

== ENCOUNTER 2023-02-04 10:19 | Emergency (ER) | payer BC, MEDICAID, SELFPAY ==
[2023-02-04 10:20] VITALS: BP 145/81; PULSE 99; RESP 22; TEMP 36.4; O2SAT 99; BMI 40.6
--- NOTE | 2023-02-04 10:37 | EDS_ITS ---
HPI History of Present Illness Chief Complaint: Chest Pain Informant: patient Onset/Context/Timing Onset: Today Activity at onset: gradual Timing: Waxes and wanes Quality: Positive for - (Squeezing) Location: Left Parasternal Current Severity: Mild Maximum Severity: Moderate Narrative Narrative: Patient presents secondary to left sternal chest pain. She states when she got up this morning she had slight pain. She went to work and it continued to worsen. She does report some lightheadedness and dizziness. She felt well when she went to bed last night but states she did have trouble sleeping. She has a family history of heart disease. [facility] Medical History (Updated 02/04/23 @ 16:[address] Lynsey Hernandez MD) Anxiety Depression History of COVID-19 PTSD (post-traumatic stress disorder) Home Medications ibuprofen 600 mg tablet 600 mg PO 4X/DAY PRN Pain Or Fever #20 tabs 07/07/22 [Rx Last Taken Unknown] famotidine 20 mg tablet (Pepcid) 20 mg PO DAILY PRN acid reflux #14 tabs 09/03/22 [Rx Last Taken Unknown] omeprazole 40 mg capsule,delayed release 40 mg PO DAILY #30 caps 09/03/22 [Rx Last Taken Unknown] ondansetron 4 mg disintegrating tablet 4 mg PO Q8H PRN PRN Nausea #14 tabs 09/03/22 [Rx Last Taken Unknown] Allergy/AdvReac Type Severity Reaction Status Date / Time No Known Allergies Allergy Verified 02/04/23 10:20 Surgical History History of hysterectomy Social History Smoking Status: Current every day smoker tobacco type: cigarettes ROS ROS ED Constitutional Constitutional ED: Denies chills or fever(s) Eyes Eyes: Denies change in vision or discharge from eye(s) ENT ENT ED: Denies discharge from eye(s), rhinorrhea or sore throat Cardiovascular Cardiovascular: Reports chest pain; Denies palpitations Respiratory/Chest Respiratory/Chest: Denies cough or dyspnea Gastrointestinal Gastrointestinal: Denies abdominal pain, nausea or vomiting Genitourinary Genitourinary ED: Denies dysuria Musculoskeletal Musculoskeletal: Denies back pain or extremity pain Integumentary Denies Abrasions or rash Neurologic Neurologic: Denies headache(s) or weakness Psychiatric Psychiatric: Denies anxiety or depression Allergic/Immunologic Allergic/Immunologic ED: Denies lip swelling or urticaria EXAM Physical Exam Const Vital Signs: 02/04/23 10:20 02/04/23 10:23 02/04/23 10:37 Temperature 97.5 F L Temperature Source Temporal Pulse Rate 99 Respiratory Rate 22 H Respiratory Effort Normal Non-Labored Blood Pressure 145/81 H Blood Pressure Mean 102 Pulse Ox 99 Oxygen Delivery Method Room Air Room Air 02/04/23 11:20 02/04/23 12:20 Temperature Temperature Source Pulse Rate Respiratory Rate 18 Respiratory Effort Blood Pressure 132/74 H Blood Pressure Mean 93 Pulse Ox Oxygen Delivery Method Positive well nourished and well developed General Appearance ED: well developed HEENT Reports normocephalic and head/scalp atraumatic Eyes PERRL and EOMs intact bilaterally Neck supple Chest Wall inspection of chest normal and palpation of chest normal Resp normal respiratory effort and clear to auscultation bilaterally Cardio regular rate and regular rhythm GI normal to inspection, nondistended, normoactive bowel sounds Palpation: soft Extremity normal to inspection Neuro oriented x3 and no sensory deficits noted Sensorium / Orientation: alert Motor Exam: strength 5/5 throughout Psych mental status grossly normal Skin no rashes or lesions noted Heart Score History: Slightly/Non-Suspicious ECG: Normal Age: </= 45 years Risk Factors: 1 or 2 Risk Factors Troponin: </= Normal Limit Score: 1 MDM MDM MDM Narrative Medical decision making narrative: Patient was placed on hall monitor. Aspirin provided. Labwork obtained to evaluate for leukocytosis, anemia, and electrolyte derangement. Chest x-ray obtained to evaluate for acute lung pathology, cardiac size, or mediastinal abnormality. EKG obtained to evaluate for cardiac arrhythmia/ischemia. History & Record Review Discussion w/independent historian: Patient Lab Data Attestation: I reviewed the patient's lab results. Labs: Laboratory Results - last 24 hr 02/04/23 02/04/23 10:25 12:45 WBC 8.4 RBC 4.81 Hgb 15.8 H Hct 47.5 H MCV 98.8 MCH 32.8 H MCHC 33.3 RDW Std Deviation 47.6 H RDW Coeff of Marguerite 13.1 Plt Count 384 MPV 9.4 Immature Gran % (Auto) 0.400 Neut % (Auto) 54.9 Lymph % (Auto) 31.3 [place] % (Auto) 9.7 Eos % (Auto) 2.7 Baso % (Auto) 1.0 Absolute Neuts (auto) 4.6 Absolute Lymphs (auto) 2.63 Nucleated RBC % 0 D-Dimer Quant (PE/DVT) < 0.27 L Sodium 139 Potassium 4.3 Chloride 108 H Carbon Dioxide 25.0 Anion Gap 6 BUN 11 Creatinine 0.78 Estim Creat Clear Calc 78.10 Est GFR (MDRD) Af Amer 106 Est GFR (MDRD) Non-Af 88 BUN/Creatinine Ratio 14.0 Glucose 110 H Calcium 8.9 Troponin I High Sens < 3 L < 3 L Radiography Chest X-Ray - ED: 1 View, Read by ED Physician, Normal, Heart, Lungs and Mediastinum Diagnostic Testing: Clinical Impression(s) from Imaging Studies Chest X-Ray 02/04/23 10:40 IMPRESSION: No acute cardiopulmonary process identified. Electronically Signed: Anne Anderson MD at 11:14 EDT Reading Location ID and State: [facility] / [place] Tel , Service support , EKG Initial EKG: Attestation: I personally reviewed and interpreted this EKG as follows: Interpretation: Sinus Rhythm (Sinus at 92 with no acute ischemia.) Differential Diagnosis Chest pain/SOB: pulmonary embolism Reason(s) PE less likely: Positive for D- Dimer negative, not tachycardic and not hypoxic and ACS ACS: Positive for no evidence of ACS based on cardiac biomarkers and EKG without ischemia Treatment and Re-Evaluation :: CBC was normal white count 8.4 with a hemoglobin of 15.8. Chemistry studies are unremarkable. D-dimer is less than 0.27. Troponin is less than 3 on both initial drawl as well as 2-hour delta. Chest x-ray per my interpretation feels no acute abnormalities. Radiology interpretation is reviewed and agrees. EKG reveals no ischemia. Test results are discussed with the patient. She is reassured with these findings and return instructions been provided. She is given a work note for today. *Patient was discharged during a computer downtime and was given printed discharge instructions. Discharge Plan Triage Chief Complaint: Chest Pain ED Provider: Lynsey Hernandez Dx/Rx/DC Orders Clinical Impression: Atypical chest pain Prescriptions: No Action ibuprofen 600 mg tablet 600 mg PO 4X/DAY PRN (Reason: Pain Or Fever) Qty: 20 0RF omeprazole 40 mg capsule,delayed release(DR/EC) 40 mg PO DAILY Qty: 30 0RF ondansetron 4 mg tablet,disintegrating 4 mg PO Q8H PRN PRN (Reason: Nausea) Qty: 14 0RF famotidine [Pepcid] 20 mg tablet 20 mg PO DAILY PRN (Reason: acid reflux) Qty: 14 0RF Primary Care Provider: Shady Sahni Referrals: Shady Sahni MD [Primary Care Provider] - Disposition Disposition: Home, Self Care Discharge Date/Time: 02/04/23 15:05
--- NOTE | 2023-02-04 10:40 | RAD_ITS ---
HISTORY: chest pain. TECHNIQUE: XR Chest 1 View. COMPARISON: 05/17/2022. FINDINGS: CARDIOMEDIASTINAL BORDERS: Cardiac silhouette within normal limits in size. Mediastinal contour unremarkable. LUNGS: Radiographically clear. PLEURA: No pleural effusion or pneumothorax seen. OSSEOUS STRUCTURES: Unremarkable. RAD/Chest 1 View (Portable) IMPRESSION: No acute cardiopulmonary process identified. Electronically Signed: Anne Anderson MD at 11:14 EDT ,
[2023-02-04 10:43] LABS: Absolute Lymphocyte Count 2.63 X10^3/uL (0.83-4.51); Absolute Neutrophil Count 4.6 X10^3/uL (2.0-7.7); Basophil# 0.08 X10^3/uL; Eosinophil# 0.23 X10^3/uL; Eosinophils% 2.7 % (0-5); Hematocrit 47.5 % (37-47); Hemoglobin 15.8 g/dL (12.0-15.0); Lymphocyte # 2.63 X10^3/ul (0.83-4.51); Lymphocyte % 31.3 % (19-41); Mean Corp Hgb Conc 33.3 g/dL (32-36); Mean Corpuscular Hgb 32.8 pg (27.0-32.0); Mean Corpuscular Volume 98.8 fL (81-99); Mean Platelet Vol. 9.4 fl (6.2-12.0); Monocyte# 0.81 X10^3/uL; Monocyte% 9.7 % (0-10); NRBC Flagged by Analyzer 0 % (0-5); Neutrophil # 4.61 X10^3/uL (2.7-7.7); Neutrophil % 54.9 % (47-70); Platelet Count 384 K/mm3 (150-450); RBC Distribution Width CV 13.1 % (11.6-14.6); RBC Distribution Width SD 47.6 fl (35.1-43.9); Red Blood Count 4.81 M/mm3 (4.2-5.4); White Blood Count 8.4 K/mm3 (4.4-11.0)
[2023-02-04] MEDS: Aspirin 81 MG TAB.CHEW 324 MG PO (10:47)
[2023-02-04 11:02] LABS: D-Dimer Quantitative (DVT/PE) < 0.27 FEU/ug/m (0.27-0.49)
[2023-02-04 11:05] LABS: Anion Gap 6 (5-15); BUN 11 mg/dL (7-18); Calcium,Total 8.9 mg/dL (8.5-10.1); Chloride 108 mmol/L (98-107); Creatinine, Serum 0.78 mg/dL (0.55-1.02); EST Glomerular Filtration Rate 88 mL/min (>60); Est Glom Filt Rate - Afr Amer 106 mL/min (>60); Glucose 110 mg/dL (74-106); Potassium 4.3 mmol/L (3.5-5.1); Sodium Level 139 mmol/L (136-145); Troponin-I HS (w/2H Reflex) < 3 pg/mL (3.0-54.0)
[2023-02-04 11:20] VITALS: RESP 18
[2023-02-04 12:20] VITALS: BP 132/74
[2023-02-04 12:40] LABS: Reflex Troponin-HS? (from REC) Y
[2023-02-04 13:14] LABS: Troponin-I HS < 3 pg/mL (3.0-54.0)
== END 2023-02-04 15:05 | disposition home or self-care (01) ==
LOC: ED 11:10
PROVIDERS: Emergency Provider Emergency Medicine; PCP Family Medicine; Visit Provider Emergency Medicine
DX: R07.89 Other chest pain (principal); F17.210 Nicotine dependence, cigarettes, uncomplicated; Z90.710 Acquired absence of both cervix and uterus
CPT/HCPCS: 71045; 80048; 84484; 85025; 85379; 93005; 99285; A4216

== ENCOUNTER 2023-03-24 04:54 | Emergency (ER) | payer BC, MEDICAID, SELFPAY ==
[2023-03-24 04:56] VITALS: BP 149/72; PULSE 69; RESP 18; TEMP 36.2; O2SAT 94; BMI 39.8
--- NOTE | 2023-03-24 05:14 | EX.ED.DYSGE1 ---
HPI History of Present Illness Chief Complaint: Cold Sx Detail of Chief Complaint: Cough and sore throat Informant: patient Narrative Narrative: Patient presents with cough and sore throat x2 days. Patient states that her 2 girls were diagnosed with a viral infection 1 last week and 1 earlier this week. Patient denies fever. She does bring up some phlegm. She complains of a headache and coughing so hard that she vomits. Patient states that her daughter was also tested for strep and was negative. Daughters were also tested for COVID and flu and were negative. [facility] Medical History (Updated 03/24/23 @ 05:[address] Antonia Connors DO) Anxiety Depression History of COVID-19 PTSD (post-traumatic stress disorder) Home Medications benzonatate 200 mg capsule 200 mg PO TID PRN cough #20 caps 03/24/23 [Rx Last Taken Unknown] Allergy/AdvReac Type Severity Reaction Status Date / Time No Known Allergies Allergy Verified 03/24/23 04:55 Surgical History History of hysterectomy Social History Smoking Status: Current every day smoker tobacco type: cigarettes ROS ROS ED Review of Systems ROS Unobtainable: other Constitutional Constitutional ED: Reports lethargy; Denies chills, fever(s), sweats or weight loss Eyes Eyes: Denies blurry vision, change in vision or diplopia ENT ENT ED: Reports sore throat; Denies rhinorrhea Cardiovascular Cardiovascular: Reports chest pain and racing heartbeat; Denies orthopnea Respiratory/Chest Respiratory/Chest: Reports cough and dyspnea; Denies dyspnea on exertion, orthopnea or sputum Gastrointestinal Gastrointestinal: Denies abdominal pain, diarrhea, nausea or vomiting Genitourinary Genitourinary ED: Denies dysuria, hematuria or urinary frequency Musculoskeletal Musculoskeletal: Denies arthralgias, back pain, myalgias or neck pain Integumentary Denies abscess, Abrasions or rash Neurologic Neurologic: Denies headache(s) or weakness Psychiatric Psychiatric: Denies anxiety, depression or suicidal thoughts Endocrine Endocrinology: Denies polydipsia, polyphagia or polyuria Hematologic/Lymphatic Hematologic/Lymphatic: Denies easy bleeding, easy bruising or lymphadenopathy Allergic/Immunologic Allergic/Immunologic ED: Denies mouth swelling, tongue swelling or urticaria EXAM Physical Exam Const Vital Signs: 03/24/23 04:56 03/24/23 04:58 03/24/23 05:24 Temperature 97.2 F L Temperature Source Temporal Pulse Rate 69 74 Respiratory Rate 18 16 Respiratory Effort Normal Respiratory Pattern Normal Blood Pressure 149/72 H Blood Pressure Mean 97 Pulse Ox 94 Oxygen Delivery Method Room Air 03/24/23 07:22 Temperature Temperature Source Pulse Rate 71 Respiratory Rate 15 Respiratory Effort Respiratory Pattern Blood Pressure Blood Pressure Mean Pulse Ox 96 Oxygen Delivery Method Positive well nourished and well developed General Appearance ED: well developed and NAD HEENT Reports TM's clear and moist mucous membranes HEENT Narrative: Minimal pharyngeal erythema. No exudates. Uvula midline without trismus. normocephalic and atraumatic; Negative for trauma or tenderness Tympanic Membrane ED: Yes TM's clear Eyes PERRL and EOMs intact bilaterally General Eye ED: Negative for pale conjunctiva or scleral icterus Neck no lymphadenopathy, supple and no JVD General: Negative for tenderness Chest Wall inspection of chest normal and palpation of chest normal Chest: Negative for tenderness Resp normal respiratory effort and clear to auscultation bilaterally Effort and Inspection: Negative for respiratory distress or pain with movement Auscultation: Negative for rhonchi, wheezes or diminished lung sounds Cardio regular rate, regular rhythm, S1 normal heart sound, S2 normal heart sound and no murmurs Peripheral Pulses: pulses 2+ throughout GI normal to inspection, nondistended, normoactive bowel sounds, soft to palpation, non-tender, non-distended and no masses Back/Spine no CVA tenderness and no thoracic nor lumbar tenderness Extremity normal to inspection General Extremety ED: Negative for edema General Extremity: Negative for edema Neuro oriented x3, CN's II-XII intact bilaterally, no sensory deficits noted and gait normal Sensorium / Orientation: awake, alert, oriented to person, oriented to place and oriented to time Motor Exam: strength 5/5 throughout and strength abnormal Psych mental status grossly normal Skin no rashes or lesions noted and no wounds MDM MDM MDM Narrative Medical decision making narrative: Patient presents with cough and sore throat with similar illness to her daughters. The differential would be a viral URI. Clinically I do not feel she has strep throat. Her Centor score is 0. I did do a rapid flu and COVID test which were negative. Patient was given a DuoNeb aerosol and she did feel somewhat improved with that. She was given a dose of ibuprofen and Tessalon Perles. I suspect she likely has a viral URI. Patient will be treated symptomatically with Tessalon Perles and will be dispensed an albuterol MDI. Patient to follow-up with her primary care physician within next 3 to 5 days. She is advised to return if increasing shortness of breath or condition should worsen anyway. Discharge Plan Triage Chief Complaint: Cold Sx ED Provider: Antonia Connors Dx/Rx/DC Orders Clinical Impression: Viral URI Instructions: ED URI, Viral, No Abx (Adult) Prescriptions: New benzonatate 200 mg capsule 200 mg PO TID PRN (Reason: cough) Qty: 20 0RF Primary Care Provider: Shady Sahni Referrals: Shady Sahni MD [Primary Care Provider] - 5-7 Days Disposition Disposition: Home, Self Care Discharge Date/Time: 03/24/23 07:25
[2023-03-24] MEDS: Ipratropium/Albuterol Sulfate 3 ML AMPUL.NEB INHALATION (05:23)
[2023-03-24 05:24] VITALS: PULSE 74; RESP 16
[2023-03-24] MEDS: Ibuprofen 600 MG Tablet PO (05:33)
[2023-03-24] MEDS: Benzonatate 100 MG Capsule 200 MG PO (05:53)
[2023-03-24 07:22] VITALS: PULSE 71; RESP 15; O2SAT 96
[2023-03-24] MEDS: Albuterol Sulfate 8 gm Inhaler (60 puffs) 2 PUFF INHALATION (07:23)
== END 2023-03-24 07:25 | disposition home or self-care (01) ==
PROVIDERS: Emergency Provider Emergency Medicine; PCP Family Medicine; Visit Provider Emergency Medicine
DX: J06.9 Acute upper respiratory infection, unspecified (principal); F17.210 Nicotine dependence, cigarettes, uncomplicated
CPT/HCPCS: 87428; 94640; 99283

== ENCOUNTER 2023-06-27 09:06 | Emergency (ER) | payer BC, MEDICAID, SELFPAY ==
[2023-06-27 09:07] VITALS: BP 143/100; PULSE 91; RESP 18; TEMP 36.2; O2SAT 100; BMI 37.7
[2023-06-27] MEDS: DiphenhydrAMINE 50 MG/ML Syringe 25 MG IV (09:37)
[2023-06-27] MEDS: 0.9% Normal Saline (1000mL) 1,000 ML 999 ML IV (09:37)
[2023-06-27] MEDS: Ketorolac 15 MG/ML Vial IV (09:37)
[2023-06-27] MEDS: Metoclopramide 10 MG/2 ML Vial IV (09:37)
--- NOTE | 2023-06-27 10:17 | EDS_ITS ---
HPI History of Present Illness Chief Complaint: Headache Detail of Chief Complaint: Temporal/frontal headache bilateral Informant: patient Onset/Context/Timing Onset: Yesterday Context: Sudden Timing: Continuous Quality -Headache: Positive for Similar Prior Headaches Location: Bitemporal and bifrontal Current Severity: Moderate Maximum Severity: Severe Associated Symptoms/Injury Associated Symptoms: Positive for Photophobia; Negative for Fever, Nausea, Vom iting, Sore Throat, Sinus Pressure, Numbness, Tingling, Preceding Aura, Visual Changes, Blurred Vision or Visual Loss Injury - SMITH: Negative for Direct Trauma Narrative Narrative: Patient is a 37-year-old woman with history of migraine headaches. She presents with bitemporal and bifrontal headache that is her typical migraine headache. She took Advil which normally abates the pain. She does report mild nausea and slight photophobia. She denies neck pain or neck stiffness. She denies rhinorrhea, postnasal drainage, sore throat. She denies cough or shortness of breath. She denies vomiting or diarrhea. She denies rash. She denies joint pain or joint swelling. She has no other complaints. She states she has not had a headache in 2 to 3 years. Prior similar symptoms: Yes Recent Illness/Hospitalization: No PFSH PFSH Medical History Anxiety Depression History of COVID-19 PTSD (post-traumatic stress disorder) Home Medications benzonatate 200 mg capsule 200 mg PO TID PRN cough #20 caps 03/24/23 [Rx Last Taken Unknown] Allergy/AdvReac Type Severity Reaction Status Date / Time No Known Allergies Allergy Verified 06/27/23 09:07 Surgical History History of hysterectomy Social History (Updated 06/27/23 @ 10:[address] Brandon Betancourt MD) household members: none Smoking Status: Current every day smoker tobacco type: cigarettes ROS ROS ED Constitutional Constitutional ED: Denies chills, fever(s), subjective, sweats or weight loss Eyes Eyes: Reports other Details: Mild photophobia per patient ; Denies blurry vision, change in vision or diplopia ENT ENT ED: Denies ear pain, rhinorrhea or sore throat Cardiovascular Cardiovascular: Denies chest pain, orthopnea, palpitations, paroxysmal nocturnal dyspnea or racing heartbeat Respiratory/Chest Respiratory/Chest: Denies cough, dyspnea, dyspnea on exertion, orthopnea or paroxysmal nocturnal dyspnea Gastrointestinal Gastrointestinal: Denies abdominal pain, diarrhea or vomiting Genitourinary Genitourinary ED: Denies dysuria, hematuria or urinary frequency Musculoskeletal Musculoskeletal: Denies arthralgias, back pain, myalgias or neck pain Integumentary Denies rash Neurologic Neurologic: Reports headache(s); Denies paresthesias or weakness Hematologic/Lymphatic Hematologic/Lymphatic: Denies easy bleeding or easy bruising EXAM Physical Exam Const Vital Signs: 06/27/23 09:07 Temperature 97.2 F L Temperature Source Temporal Pulse Rate 91 Respiratory Rate 18 Blood Pressure 143/100 H Blood Pressure Mean 114 Pulse Ox 100 Oxygen Delivery Method Room Air Positive well nourished, well developed and obese Constitutional Narrative: Lights were off on and the room. She has a towel over her eyes. General Appearance ED: well developed and NAD; Negative for cyanotic, diaphoretic or pallor Nutritional Appearance: obese HEENT Reports normocephalic, TM's clear and moist mucous membranes HEENT Narrative: There is no tenderness over the temporal artery. atraumatic Face and Sinus: Negative for sinus tenderness Tympanic Membrane ED: Yes TM's clear Eyes PERRL and EOMs intact bilaterally Eyes Narrative: Cup-to-disc ratio is normal. There is no papilledema. General Eye ED: Negative for pale conjunctiva or scleral icterus Neck no lymphadenopathy, supple, no meningeal signs and no JVD Resp normal respiratory effort and clear to auscultation bilaterally Cardio regular rate, regular rhythm, S1 normal heart sound, S2 normal heart sound and no murmurs GI non-tender Auscultation: normoactive bowel sounds Palpation: soft Back/Spine no CVA tenderness Extremity normal to inspection, full ROM and normal capillary refill Neuro oriented x3, CN's II-XII intact bilaterally and no sensory deficits noted Neuro Narrative: There is no dysmetria. There is no clonus or Babinski sign noted. Thurston Coma Scale: document GCS findings Spontaneous Obeys Commands Oriented 15 Sensorium / Orientation: awake and alert Motor Exam: strength 5/5 throughout Psych mental status grossly normal Skin General Skin Exam: elasticity normal and turgor normal; Negative for jaundice or pallor Rashes: no rashes MDM MDM MDM Narrative Medical decision making narrative: Patient was treated with IV Toradol, Benadryl and Reglan. Since her neuroexam is normal and she does not have papilledema or nuchal rigidity scan was not obtained. There is no concern for subarachnoid hemorrhage. Suspect this is a vascular/migraine headache. Blood pressure slight elevated which may be due to her pain. Will reassess after she receives her medicine. History & Record Review Discussion w/independent historian: Patient Treatment and Re-Evaluation Narrative: Patient was reassessed at 07/18/2004. She had to be awakened from sleep. She does feel markedly better. Plan is to discharge to home with work excuse. Discharge Plan Triage Chief Complaint: Headache ED Provider: Brandon Betancourt Dx/Rx/DC Orders Clinical Impression: Migraine without aura, intractable, without status migrainosus, Elevated blood pressure reading without diagnosis of hypertension Instructions: ED, Migraine (Classical) Prescriptions: No Action benzonatate 200 mg capsule 200 mg PO TID PRN (Reason: cough) Qty: 20 0RF Stand Alone Forms: ED Work / School Excuse Primary Care Provider: Shady Sahni Referrals: Shady Sahni MD [Primary Care Provider] - As Needed Disposition Disposition: Home, Self Care
== END 2023-06-27 11:33 | disposition home or self-care (01) ==
PROVIDERS: Emergency Provider Emergency Medicine; PCP Family Medicine; Visit Provider Emergency Medicine
DX: G43.019 Migraine without aura, intractable, without status migrainosus (principal); F17.210 Nicotine dependence, cigarettes, uncomplicated; R03.0 Elevated blood-pressure reading, without diagnosis of hypertension
CPT/HCPCS: 96361; 96374; 96375; 99283; J7030; A4216

== ENCOUNTER 2023-08-01 04:52 | Emergency (ER) | payer MEDICAID, SELFPAY ==
[2023-08-01 04:54] VITALS: BP 140/84; PULSE 91; RESP 12; TEMP 36.8; O2SAT 99; BMI 38.5
--- NOTE | 2023-08-01 04:56 | EDS_ITS ---
HPI HPI - URI History of Present Illness Chief Complaint: Cough Informant: patient Onset/Context/Timing Onset: Days (4) Context: Gradual Onset Timing: Continuous Quality: Irritating Location: Bilateral ears Worsened by: - (Nothing) Relieved by: - (Nothing) Associated Symptoms Associated Symptoms: Positive for Nausea, Vomiting, Chest Pain and Productive Cough; Negative for Nasal Congestion, Headache, Sinus Pressure, Myalgias, Diarrhea, Shortness of Breath, Nonproductive cough or Hemoptysis Narrative Narrative: Patient presents with a cough that has been getting worse over the last 4 days. Patient states she is coughing up some clear and white sputum. Patient admits to some nausea and vomiting after coughing episodes. Patient admits to some pain in her chest with coughing. Patient also admits to some pain in both of her ears. Patient describes as irritating . Patient denies any fevers or chills. Patient denies any headache or sinus pressure. Patient denies any arthralgias or myalgias. ROS ROS ED Constitutional Constitutional ED: Denies chills or fever(s) Eyes Eyes: Denies blurry vision or change in vision ENT ENT ED: Reports ear pain bilateral; Denies rhinorrhea or sore throat Cardiovascular Cardiovascular: Reports chest pain; Denies palpitations Respiratory/Chest Respiratory/Chest: Reports cough; Denies dyspnea Gastrointestinal Gastrointestinal: Reports nausea and vomiting; Denies diarrhea Genitourinary Genitourinary ED: Denies dysuria or hematuria Musculoskeletal Musculoskeletal: Denies back pain or neck pain Integumentary Denies abscess or rash Neurologic Neurologic: Denies headache(s) or weakness Allergic/Immunologic Allergic/Immunologic ED: Denies mouth swelling or urticaria [facility] Medical History Anxiety Depression History of COVID-19 PTSD (post-traumatic stress disorder) Home Medications benzonatate 200 mg capsule 200 mg PO TID PRN cough #20 caps 03/24/23 [Rx Last Taken Unknown] albuterol sulfate 90 mcg/actuation aerosol inhaler (Ventolin HFA) 1 - 2 puff inhalation Q4H PRN PRN Wheezing ##1 08/01/23 [Rx Last Taken Unknown] Allergy/AdvReac Type Severity Reaction Status Date / Time No Known Allergies Allergy Verified 08/01/23 04:54 Surgical History History of hysterectomy Social History household members: none Smoking Status: Light Smoker (<10/day) EXAM Physical Exam Const Vital Signs: 08/01/23 04:54 08/01/23 04:58 08/01/23 04:58 Temperature 98.3 F Temperature Source Temporal Pulse Rate 91 Respiratory Rate 12 Respiratory Effort Normal Normal Respiratory Depth Normal Respiratory Pattern Normal Normal Blood Pressure 140/84 H Blood Pressure Mean 102 Pulse Ox 99 Oxygen Delivery Method Room Air Room Air 08/01/23 05:21 Temperature Temperature Source Pulse Rate 89 Respiratory Rate 18 Respiratory Effort Respiratory Depth Respiratory Pattern Normal Blood Pressure Blood Pressure Mean Pulse Ox Oxygen Delivery Method Positive well nourished, well developed and obese General Appearance ED: well developed and NAD Nutritional Appearance: obese HEENT Reports moist mucous membranes Neck supple, no meningeal signs and no JVD Resp normal respiratory effort Auscultation: wheezes scattered wheezes Cardio Rate: regular rate Rhythm: regular rhythm GI non-tender and non-distended Palpation: soft Neuro oriented x3, CN's II-XII intact bilaterally and no sensory deficits noted Sensorium / Orientation: alert Motor Exam: strength 5/5 throughout Psych mental status grossly normal MDM MDM MDM Narrative Medical decision making narrative: Differential diagnosis includes pneumonia, COVID-19 infection, influenza infection, RSV infection, and viral upper respiratory infection. COVID-19, RSV, and influenza PCR will be obtained to assess for COVID-19 infection, influenza infection, and RSV infection. Chest x-ray will be obtained to assess for pneumonia and pneumothorax. Lab Data Lab results narrative: COVID-19 PCR was reviewed and was negative. Influenza PCR was reviewed and was negative for influenza A and influenza B. RSV PCR was reviewed and was negative. Radiography Chest X-Ray - ED: 2 View, Read by ED Physician, Read by Radiologist and No Acute Disease Diagnostic Testing: Clinical Impression(s) from Imaging Studies Chest X-Ray 08/01/23 05:30 IMPRESSION: No evidence of cardiopulmonary disease. Electronically Signed: Christopher Malik DO at 5:44 EST , PA and lateral chest x-ray was obtained. There are 2 views. On my independent interpretation, lung cuello are clear. There is normal cardiac silhouette. Bony thorax is normal. There is no acute process noted. Radiologist also interpreted the x-ray and agrees. Treatment and Re-Evaluation Narrative: Smoking cessation was discussed. Patient was given a DuoNeb aerosol here. Patient was advised of her findings. Patient is feeling better on reevaluation. Patient was instructed to follow-up with her primary care physician in 5 to 7 days. Patient was given a prescription for an albuterol inhaler. Patient was instructed return if worse in any way. Patient understood and was agreeable with the plan. All questions were answered. Discharge Plan Triage Chief Complaint: Cough Other Complaint: Cold Sx Ear Problem ED Provider: Shahbaz Albert Dx/Rx/DC Orders Clinical Impression: Cough, Viral upper respiratory tract infection Instructions: ED URI, Viral, No Abx (Adult) Prescriptions: New albuterol sulfate [Ventolin HFA] 90 mcg/actuation HFA aerosol inhaler 1 - 2 puff inhalation Q4H PRN PRN (Reason: Wheezing) Qty: 1 0RF No Action benzonatate 200 mg capsule 200 mg PO TID PRN (Reason: cough) Qty: 20 0RF Primary Care Provider: Shady Sahni Referrals: Shady Sahni MD [Primary Care Provider] - 3-5 Days Disposition Disposition: Home, Self Care
[2023-08-01] MEDS: Ipratropium/Albuterol Sulfate 3 ML AMPUL.NEB INHALATION (05:19)
[2023-08-01 05:21] VITALS: PULSE 89; RESP 18
--- NOTE | 2023-08-01 05:30 | RAD_ITS ---
INDICATION: Cough EXAMINATION/TECHNIQUE: X-RAY - XR Chest 2 Views COMPARISON: 02/04/2023. FINDINGS: LINES/DEVICES: None. LUNGS: No consolidation or evidence of an effusion. No evidence of edema or a pneumothorax. MEDIASTINUM AND CARDIOVASCULAR STRUCTURES: Cardiac silhouette is normal in size and contour. Mediastinum is unremarkable. BONES AND SOFT TISSUES: No acute abnormality. RAD/Chest PA and Lateral IMPRESSION: No evidence of cardiopulmonary disease. Electronically Signed: Christopher Malik DO at 5:44 EST ,
== END 2023-08-01 06:54 | disposition home or self-care (01) ==
PROVIDERS: Emergency Provider Emergency Medicine; PCP Family Medicine; Visit Provider Emergency Medicine
DX: J06.9 Acute upper respiratory infection, unspecified (principal); F17.200 Nicotine dependence, unspecified, uncomplicated; R05.9 Cough, unspecified
CPT/HCPCS: 71046; 87631; 94640; 99284

== ENCOUNTER 2025-05-06 12:38 | Emergency (ER) | payer MEDICAID, SELFPAY ==
[2025-05-06 12:40] VITALS: BP 153/112; PULSE 102; RESP 20; TEMP 36.2; O2SAT 99; BMI 39.4
[2025-05-06 12:57] VITALS: O2SAT 98
[2025-05-06 13:53] VITALS: PULSE 100; RESP 16
[2025-05-06 14:43] VITALS: BP 153/92; PULSE 90; RESP 18; TEMP 36.6; O2SAT 98
== END 2025-05-06 14:44 | disposition home or self-care (01) ==
PROVIDERS: Emergency Provider Emergency Medicine; PCP Family Medicine; Visit Provider Emergency Medicine
DX: J20.9 Acute bronchitis, unspecified (principal); Z90.710 Acquired absence of both cervix and uterus; R05.9 Cough, unspecified; F17.200 Nicotine dependence, unspecified, uncomplicated
CPT/HCPCS: 71046; 94640; 99282